=== PATIENT | male | born 1945 | race Two or more races ===

== ENCOUNTER 2017-01-04 11:06 | Inpatient (IN) | payer OTHER, MEDICAID ==
[2017-01-04] MEDS ORDERED: HYDROmorphONE/DILAUDID 1 MG/ML SYR IVP ONE ×3 (11:37→17:06)
[2017-01-04] MEDS ORDERED: HYDROmorphONE/DILAUDID 1 MG/ML SYR ONE ×2 (11:38→17:05)
[2017-01-04 12:18] LABS: % IMMATURE GRANULYOCYTES 0.5 % (0.0-1.1); ABSOLUTE IMMATURE GRANULOCYTES 0.06 10^3/uL (0.00-0.10); ADD DIFF? NO; ADD MORPH? NO; ADD SCAN? NO; ATYPICAL LYMPHOCYTE FLAG 0 (0-99); FRAGMENT RBC FLAG 0 (0-99); HEMATOCRIT 29.9 % (40.0-51.0); LEFT SHIFT FLG 20 (0-99); LIPEMIA HEMOLYSIS FLAG 80 (0-99); MEAN CELL HEMOGLOBIN 32.3 pg (27.9-34.1); MEAN CELL HEMOGLOBIN CONCENTR. 33.4 g/dL (32.4-36.7); MEAN CELL VOLUME 96.5 fL (81.5-99.8); MEAN PLATELET VOLUME 9.8 fL (8.7-11.7); PLATELET CLUMPS FLAG 0 (0-99); PLATELET COUNT 192 10^3/uL (150-400); RED CELL DISTRIBUTION WIDTH 14.1 % (11.5-15.2)
[2017-01-04 12:27] LABS: ANION GAP 10 mEq/L (8-16); CALCIUM 8.9 mg/dL (8.5-10.4); CARBON DIOXIDE 25 mEq/l (22-31); CHLORIDE 95 mEq/L (97-110); GLOMERULAR FILTRATION RATE > 60; GLUCOSE 228 mg/dL (70-100); POTASSIUM 4.4 mEq/L (3.5-5.2); SODIUM 130 mEq/L (134-144)
[2017-01-04] MEDS ORDERED: NS 1,000 ML IV ONE ×2 (12:32→13:30)
[2017-01-04 12:43] LABS: C-REACTIVE PROTEIN 224.8 mg/L (<10.0)
[2017-01-04 12:44] LABS: INR 3.28 (0.83-1.16); PROTIME(PATIENT) 33.9 SEC (12.0-15.0)
[2017-01-04 12:46] LABS: APTT 64.9 SEC (23.0-38.0); SEDIMENTATION RATE 50 MM/HR (0-20)
[2017-01-04 12:59] LABS: BILIRUBIN,TOTAL 1.3 mg/dL (0.1-1.4)
--- NOTE | 2017-01-04 13:05 | DX ---
Left Elbow, Three Views History: Hand swelling x1 week, possible infection. Comparison: None Findings: I suspect there is an old healed fracture deformity of the radial head. There is soft tis crys calcification surrounding the radial head that may indicate primary chondrocalcinosis or small fr agments of calcified cartilage in the elbow joint. There is a large hypertrophic ridge involving the posterior distal humeral metaphysis. There is a small dorsal proximal ulnar spur. There is dense athe rosclerotic vascular calcification of the radial and ulnar arteries. There is no elbow joint effusion , bone lysis or sclerosis or periostitis to suggest active infection. Impression: Nothing acute identified. Please see above.
--- NOTE | 2017-01-04 13:13 | CPEKG ---
Heart Rate: 97 RR Interval: 619 P-R Interval: 212 QRSD Interval: 134 QT Interval: 368 QTC Interval: 468 P [place]: 77 QRS [place]: -44 T Wave [place]: 144 EKG Severity - ABNORMAL ECG - EKG Impression: SINUS RHYTHM EKG Impression: LEFT BUNDLE BRANCH BLOCK Electronically Signed By: Wild Holman 04-Jan-2017 14:01:56
[2017-01-04] MEDS ORDERED: PIPERACILLIN/TAZO 3.375 GM/DEX 50 ML IV ONE (13:34)
[2017-01-04] MEDS ORDERED: VANCOMYCIN HCL/NORMAL SALINE 250 ML IV ONE (13:34)
--- NOTE | 2017-01-04 13:37 | EDPHY ---
H & P <Wild Holman - Last Filed: 01/04/17 16:20> Stated Complaint: l shoulder pain since thrusday no injury; seen yesterday at [facility] Source: Patient, Family Exam Limitations: No limitations - Personal History Current Tetanus/Diphtheria Vaccine: Yes Current Tetanus Diphtheria and Acellular Pertussis (TDAP): Yes - Medical/Surgical History Hx Asthma: No Hx Chronic Respiratory Disease: No Hx Diabetes: Yes Hx Cardiac Disease: Yes Hx Renal Disease: No Hx Cirrhosis: No Hx Alcoholism: No Hx HIV/AIDS: No Hx Splenectomy or Spleen Trauma: No Other PMH: heart surgery 2003 ([facility] valve), DM - Social History Smoking Status: Never smoked <Santo Paulion - Last Filed: 01/04/17 16:48> <Alfa Villasenor - Last Filed: 01/04/17 16:57> HPI/ROS: CHIEF COMPLAINT: Left elbow shoulder pain HISTORY OF PRESENT ILLNESS: 3 days history of left shoulder and elbow pain, shoulder starting 1st. [id number] at 1st. Now it is severe. It is primarily in the left elbow at this time. Associated with swelling and inability to flex or extend the elbow. No trauma or injury. No lacerations, abrasions or contusions. There is swelling and pain distal to the elbow but no numbness or tingling. No cyanosis, pallor paresthesia. Was seen yesterday outside facility related x-ray, laboratory studies and ultrasound with no definitive diagnosis. The pain is significantly worsened since yesterday. No fevers or chills. Does have general malaise. No nausea or vomiting. No abdominal complaints. No rash. No other associated complaints or modifying factors REVIEW OF SYSTEMS: Ten systems reviewed and are negative unless otherwise noted in the HPI EXAMINATION General Appearance: Alert, no distress Head: normocephalic, atraumatic Eyes: Pupils equal and round, no conjunctival pallor or injection ENT, Mouth: Mucous membranes moist. Uvula midline. Neck: Normal inspection, supple, non-tender Respiratory: Lungs are clear to auscultation . No wheezing, rhonchi or crackles. Cardiovascular: Regular rate and rhythm . Harsh systolic murmur. Pulses are intact distally with symmetric radial pulses at 2+. Brisk cap refill in all 10 fingers. Gastrointestinal: Abdomen is soft and nontender . Ecchymosis at site of insulin injections. Neurological: A&O, nonfocal, Sensory symmetric in the upper extremities. Strength is 5/5 in both hands. Unable to test strength of the elbow due to pain in left side Skin: Warm and dry, no rash Extremities: significant edema and tenderness to palpation of the left elbow And forearm. Mild tenderness to palpation left shoulder. Range of motion the shoulder is intact. Unable to test range of motion about the left elbow secondary to pain and swelling. Mild erythema about the left arm.Neurovascular intact distal to the left elbow pain. there is no crepitus Or subcutaneous emphysema upon palpation of the left upper extremity at any site. Psychiatric: Mood and affect normal DIFFERENTIAL DIAGNOSES: Including but not limited to septic arthritis, osteomyelitis, fasciitis, cellulitis, abscess MDM: 1:43 p.m. significant pain, edema and decreased range of motion of the left elbow. There is minimal change about the left shoulder. Given the nature of his appearance, has diabetes and history, we did order multiple laboratory studies. We also have ordered MRI to further delineate the elbow or shoulder. He is resting comfortably at this time. Upon admission is vital signs were well within normal limits. He does not have a leukocytosis and a heart rate above 90, thus we did order lactic acid and blood cultures. These are pending at this time. We have also consulted General surgery for evaluation for possible fasciitis. He will be evaluated in the emergency department for this. additionally, we were notified that the patient began to complain of some chest pain, thus an EKG and troponin have been ordered as well. This was not present at time of admission. 4:40 p.m. patient's laboratory studies and vital signs pointing toward sepsis. At the time noted by Dr. Holman in his chart, we had already commenced IV antibiotics and IV fluid resuscitation. Lactic acid was elevated and we will repeat this soon. We also had MRI of the elbow and shoulder ordered. He tolerated the shoulder was unable to tolerate the left elbow MRI. General surgery was consulted for the possibility of fasciitis and he has evaluated the patient and feels that there is no evidence of this. Please see his note for further delineation of this. Dr. Holman has also consult Orthopedics, and they will evaluate the patient in the emergency department to assess for possibility of septic joint. In the interim, the patient did have a short bout of hypotension with a systolic pressure in the 80s. At that time he was given more IV fluids and pressors. Additionally central line has been placed. His pressure has normalized. During this he was awake, alert and mentating appropriately. He' ll be admitted to the ICU for further care. SUPERVISION: Patient was evaluated in conjunction with the supervising physician. Please see their note for details. (Santo Paulino) Constitutional: Initial Vital Signs Temperature (C) 37.5 C 01/04/17 11:18 Heart Rate 92 01/04/17 11:18 Respiratory Rate 18 01/04/17 11:18 Blood Pressure 150/52 H 01/04/17 11:18 O2 Sat (%) 92 01/04/17 11:18 O2 Delivery Mode Nasal Cannula O2 (L/minute) 5 Allergies/Adverse Reactions: No Known Allergies Allergy (Verified 07/13/12 10:09) Home Medications: Medication Instructions Recorded Amoxicillin 08/03/10 Aspirin 81mg 08/03/10 COUMADIN 08/03/10 METFORMIN HCL 08/03/10 METOPROLOL TARTRATE 08/03/10 Nitroglycerin 08/03/10 Provastatin 08/03/10 Zantac 08/03/10 Amoxicillin/Clavulanate Pot 875 mg PO BID #14 tab 09/10/14 [Augmentin 875 MG TAB (RX)] Hydrocodone/Acetaminophen [Vicodin 09/10/14 5-300 mg Tablet] Medical Decision Making Consult/Admit Bed Type: [place] [address], [place] [address], [facility] 1601 <Wild Holman - Last Filed: 01/04/17 16:20> <Santo Paulino - Last Filed: 01/04/17 16:48> <Alfa Villasenor - Last Filed: 01/04/17 16:57> - Diagnostics EKG Interpretation: 12-lead EKG interpreted by me; official reading is in trace master. My interpretation is 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 with left bundle branch block. (Wild Holman) Procedures: Procedure: Central line placement. Indication: Sepsis. Verbal informed consent was obtained, with the risks explained to include but not be limited to bleeding, infection, and collapsed lung. A timeout was observed and patients identity and correct procedure location confirmed. Full maximal sterile barrier technique was uses including cap, gown, sterile gloves, large sheet, hand washing and chlorhexidine prep. The area anesthetized with 1 % lidocaine. The [ ] was punctured with a 19 gauge finder needle, then a 7.5 fr tripple lumen catheter was placed using standard Seldinger technique. There were no complications. Blood return low pressure, dark blood. Patient tolerated procedure well. CXR results: catheter tip not in correct position, crossed into L subclavian. X-ray was interpreted by myself. The procedure was performed by myself. Catyheter tip in L subclavian. Discussed with Dr. Arita. Will leave in place for now as patient's blood pressure has normalized. (Alfa Villasenor) ED Course/Re-evaluation: PHYSICIAN DOCUMENTATION: The patient was evaluated and managed by the Physician Hand Iii Cutter and myself. I have reviewed the chart and agree with the findings and plan of care as documented. In addition, I examined the patient myself at 1225. History confirmed as left arm pain for 3 days, worse with movement or palpation. Physical findings as follows: Patient has a good left radial pulse. He does not have skin changes in the left arm. He has some swelling on the distal biceps area but has a lot of pain with passive range of motion of his shoulder and his elbow. I do not appreciate any joint effusion. Compartments are soft. Concern for deep space infection such as fasciitis given elevated CRP white blood cell count and sedimentation rate. Patient started on sepsis protocol with broad-spectrum antibiotics to include Zosyn and vancomycin. MRI ordered. sharepoint consultant Dr. Arita here at 1: 55 p.m. in the emergency department to personally seen evaluate the patient. Concern for deep space infection given elevated white blood cell count, sedimentation rate, CRP and pain out of proportion to external physical examination. He has a good radial pulse and I think arterial occlusion is unlikely. He is anticoagulated with a therapeutic and INR and I believe DVT is unlikely especially with a negative ultrasound yesterday at [facility]. Discussed with orthopedic VILMA Obrien for Dr. Erwin at 1600 and he will see the patient this afternoon. At this time the patient is coughing and has increased oxygen requirement. Chest x-ray shows bilateral interstitial edema. Signed out to [place] at 1615; blood pressure 82 systolic, additional oxygen, ICU admission, plan for ED central access and pressors followed by CT left upper extremity as patient coughing and had too much pain to tolerate complete MRI. Lyla in ED and aware. I am the secondary supervising physician. (Wild Holman) - Data Points Laboratory Results: Laboratory Results 01/04/17 11:40 01/04/17 11:40 01/04/17 01/04/17 01/04/17 14:00 13:32 11:40 WBC 13.14 H 10^3/uL (3.80-9.50) RBC 3.10 L 10^6/uL (4.40-6.38) Hgb 10.0 L g/dL (13.7-17.5) Hct 29.9 L % (40.0-51.0) MCV 96.5 fL (81.5-99.8) MCH 32.3 pg (27.9-34.1) MCHC 33.4 g/dL (32.4-36.7) RDW 14.1 % (11.5-15.2) Plt Count 192 10^3/uL (150-400) MPV 9.8 fL (8.7-11.7) Neut % (Auto) 83.0 H % (39.3-74.2) Lymph % (Auto) 5.5 L % (15.0-45.0) [place] % (Auto) 10.7 % (4.5-13.0) Eos % (Auto) 0.1 L % (0.6-7.6) Baso % (Auto) 0.2 L % (0.3-1.7) Nucleat RBC Rel Count 0.0 % (0.0-0.2) Absolute Neuts (auto) 10.92 H 10^3/uL (1.70-6.50) Absolute Lymphs (auto) 0.72 L 10^3/uL (1.00-3.00) Absolute Monos (auto) 1.41 H 10^3/uL (0.30-0.80) Absolute Eos (auto) 0.01 L 10^3/uL (0.03-0.40) Absolute Basos (auto) 0.02 10^3/uL (0.02-0.10) Absolute Nucleated RBC 0.00 10^3/uL (0-0.01) Immature Gran % 0.5 % (0.0-1.1) Immature Gran # 0.06 10^3/uL (0.00-0.10) ESR 50 H MM/HR (0-20) PT 33.9 H SEC (12.0-15.0) INR 3.28 H (0.83-1.16) APTT 64.9 H SEC (23.0-38.0) VBG Lactic Acid 2.3 H mmol/L (0.7-2.1) Sodium 130 L mEq/L (134-144) Potassium 4.4 mEq/L (3.5-5.2) Chloride 95 L mEq/L (97-110) Carbon Dioxide 25 mEq/l (22-31) Anion Gap 10 mEq/L (8-16) BUN 20 mg/dL (7-23) Creatinine 1.0 mg/dL (0.7-1.3) Estimated GFR > 60 Glucose 228 H mg/dL (70-100) Calcium 8.9 mg/dL (8.5-10.4) Total Bilirubin 1.3 mg/dL (0.1-1.4) Creatine Kinase 208 IU/L (0-224) Troponin I 0.022 ng/mL (0-0.034) C-Reactive Protein 224.8 H mg/L (<10.0) Patient ABO/Rh O POSITIVE Antibody Screen NEGATIVE Medications Given: Discontinued Medications Hydromorphone HCl (Dilaudid) 0.5 mg IVP EDNOW ONE Stop: 01/04/17 11:38 Last Admin: 01/04/17 11:45 Dose: 0.5 mg Hydromorphone HCl (Dilaudid) 1 mg IVP EDNOW ONE Stop: 01/04/17 12:33 Last Admin: 01/04/17 12:35 Dose: 1 mg Hydromorphone HCl (Dilaudid) 1 mg IVP EDNOW ONE Stop: 01/04/17 15:24 Last Admin: 01/04/17 16:36 Dose: Not Given Sodium Chloride (Ns) 1,000 mls @ 0 mls/hr IV EDNOW ONE PRN Reason: Wide Open Stop: 01/04/17 12:33 Last Admin: 01/04/17 12:35 Dose: 1,000 mls Vancomycin/Sodium Chloride (Vancomycin 1 Gm (Premix)) 250 mls @ 250 mls/hr IV EDNOW ONE PRN Reason: Protocol Stop: 01/04/17 14:33 Last Admin: 01/04/17 14:10 Dose: 250 mls Piperacillin/Tazobactam/Dextrose (Zosyn 3.375 Gm (Premix)) 50 mls @ 100 mls/hr IV EDNOW ONE PRN Reason: Protocol Stop: 01/04/17 14:03 Last Admin: 01/04/17 14:19 Dose: 50 mls Sodium Chloride (Ns) 1,000 mls @ 0 mls/hr IV EDNOW ONE PRN Reason: Wide Open Stop: 01/04/17 13:31 Last Admin: 01/04/17 13:30 Dose: 1,000 mls Nitroglycerin (Nitrostat) 0.4 mg SL EDNOW ONE Stop: 01/04/17 14:25 Last Admin: 01/04/17 14:24 Dose: 0.4 mg Sodium Chloride (Ns *For Sepsis Order Set Only*) 2,381 ml IV EDNOW ONE Stop: 01/04/17 13:56 Last Admin: 01/04/17 14:20 Dose: 381 ml Departure <Wild Holman - Last Filed: 01/04/17 16:20> <Santo Paulino - Last Filed: 01/04/17 16:48> <Alfa Villasenor - Last Filed: 01/04/17 16:57> - Departure Disposition: [facility] Inpatient Acute Clinical Impression: Left arm pain, Sepsis affecting skin, Hypotension Condition: Serious
[2017-01-04] MEDS ORDERED: NS 1,000 ML BAG *FOR SEPSIS ORDER SET ONLY IV ONE (13:55)
[2017-01-04] MEDS ORDERED: NITROGLYCERIN 0.4 MG BTL SL ONE ×2 (14:23→14:24)
[2017-01-04 14:42] LABS: LACGHOST ORDER
[2017-01-04] MEDS: HYDROmorphONE/DILAUDID 1 MG/ML SYR IVP ONE ×2 (15:25→16:36)
[2017-01-04] MEDS ORDERED: NOREPINEPHRINE BITARTRATE 4 MG in NS 500 ML IV ONE (16:18)
--- NOTE | 2017-01-04 16:21 | DX ---
Portable AP chest. 01/04/2017 at 1603 History: cough, shortness of breath Comparison study: None available Findings: Diffuse lung disease is present bilaterally. Both interstitial disease and airspace consoli dation is present. Findings may be secondary to pulmonary edema or diffuse pneumonia. No pleural effu amando. Surgical features of median sternotomy, CABG, and prosthetic cardiac valve present. Impression: Diffuse bilateral lung disease, pulmonary edema versus diffuse pneumonia.
--- NOTE | 2017-01-04 16:23 | DX ---
Shoulder Minimum 2 Views CLNLRB L History: Possible left shoulder infection. Shoulder pain Comparison exam: None available. Findings: Moderate glenohumeral and acromioclavicular degenerative joint disease. No fracture or disl ocation. No subcutaneous emphysema. Diffuse bilateral lung disease is better documented on chest x-ray performed at the same time. Impression: Degenerative changes, left shoulder. Diffuse bilateral lung disease.
--- NOTE | 2017-01-04 16:30 | MR ---
MRI of the Left Shoulder History: Severe shoulder pain. Evaluate for infection. Technique: Axial proton density, oblique coronal and sagittal T1 and T2 sequences were acquired. Findings: There is a large left shoulder joint effusion. Full-thickness tear of both supraspinatus an d infraspinatus tendons identified, with retraction of both tendons to the shoulder joint level and a ssociated fatty atrophy of musculature, severe. There is a high-grade partial tear of distal subscapu yovany with only a few intact caudal fibers noted. Teres minor remains intact. Evaluation of the glenohumeral joint demonstrates diffuse chondral thinning throughout the glenoid ar ticular surface, moderate severity. There is a degenerative moderately displaced tear of the posterio r glenoid labrum diffusely. The anterior labrum is intact. Superior labrum is also torn and displaced . Long head biceps tendon is not visualized within the shoulder joint compatible with complete tear. Th e tendon appears to be retracted to the proximal humeral neck level. Impression: 1. Large left shoulder joint effusion. 2. Massive rotator cuff tendon tear with full-thickness tears of supraspinatus and infraspinatus tend ons with retraction and muscular atrophy. High-grade partial tear distal subscapularis. 3. Complete tear of the long head biceps tendon with retraction. 4. Degenerative tear of the superior and posterior glenoid labrum. Examination reviewed with Dr. Arita.
--- NOTE | 2017-01-04 17:10 | PDCONSULT ---
Exam Temp Pulse Resp BP Pulse Ox 36.7 C 112 H 26 H 97/51 L 89 L 01/04/17 15:38 01/04/17 16:39 01/04/17 16:39 01/04/17 16:39 01/04/17 16:39 O2 (L/minute) 5 Constitutional: uncomfortable Eyes: PERRL, EOMI Ears, Nose, Mouth, Throat: moist mucous membranes, hearing normal, no oral mucosal ulcers Cardiovascular: regular rate and rhythym, systolic murmur Peripheral Pulses: 2+: dorsalis-pedis (R), dorsalis-pedis (L) Respiratory: no respiratory distress, no rales or rhonchi, reduced air movement Skin: warm, normal color, no rashes or abrasions, no induration, abrasion, induration, rash, other (Petechiae BLEs), No erythema, No fluctuance Musculoskeletal: joint effusion (left shoulder), joint tenderness, pain with ROM (limiting ROM 2/2 severe pain with minor IR/ER/FE L shoulder and P/S/F/E L elbow.), muscular tenderness, other (Diffuse severe tenderness of the LUE from the shoulder to the wrist; limited ROM of the shoulder and elbow due to pain; quantitative consultant strength intact, unable to assess strength fully secondary to pain. Compartments soft, no subQ crepitation throughout LUE.) Neurologic: AAOx3, sensation intact bilaterally, other (C5-T1 and L2-S1 intact. DTRs at least 1+ BUE's with diff exam 2/2 pain, 2+ BLEs. No clonus BLE's.) Psychiatric: interacting appropriately History of Present Illness - General Stated Complaint: l shoulder pain since thrusday no injury; seen yesterday at [facility] Source: Patient, Family HPI: 71y/o M presents to the ED c/o left shoulder and elbow pain x 2 days. Pt states he developed left shoulder pain 2 days ago while sleeping. The pain continued to keep him up that night. Pain started in the left shoulder and now includes his left elbow and forearm. Pt states pain is a 9/10 and sharp. Pain increases with any type of movement, and he has to hold his left arm with his right for additional support. Pt has tried Vicodin and Percocet with no relief. Pt was seen by his PCP yesterday and sent for an ultrasound of his LUE at [facility] with negative results. Pt denies any type of injury to the left arm. Pt states he developed a dry cough today, but otherwise denies any fever, chills, calf pain, erythema, calor, weakness, numbness, and tingling. REVIEW OF SYSTEMS: dry cough started today; otherwise, no other complaints after a 10-pt review. Timing/Duration: Days (2) Quality: severe, sharpness Activities at Onset: sleep Modifying Factors: improves with: analgesics, rest Associated Symptoms: other (non-productive cough). No: chest pain, fever/chills , fatigue Initial Vital Signs: Initial Vital Signs Temperature (C) 37.5 C 01/04/17 11:18 Heart Rate 92 01/04/17 11:18 Respiratory Rate 18 01/04/17 11:18 Blood Pressure 150/52 H 01/04/17 11:18 O2 Sat (%) 92 01/04/17 11:18 O2 Delivery Mode Nasal Cannula O2 (L/minute) 5 Allergies/Adverse Reactions: No Known Allergies Allergy (Verified 07/13/12 10:09) Home Medications: Medication Instructions Recorded Amoxicillin 08/03/10 Aspirin 81mg 08/03/10 COUMADIN 08/03/10 METFORMIN HCL 08/03/10 METOPROLOL TARTRATE 08/03/10 Nitroglycerin 08/03/10 Provastatin 08/03/10 Zantac 08/03/10 Amoxicillin/Clavulanate Pot 875 mg PO BID #14 tab 09/10/14 [Augmentin 875 MG TAB (RX)] Hydrocodone/Acetaminophen [Vicodin 09/10/14 5-300 mg Tablet] Past Medical History - Medical/Surgical History Hx Asthma: No Hx Chronic Respiratory Disease: No Hx Cardiac Disease: Yes Hx Diabetes: Yes Hx Renal Disease: No Hx Alcoholism: No Hx Cirrhosis: No Hx HIV/AIDS: No Hx Splenectomy or Spleen Trauma: No Other PMH: heart surgery 2003 ([facility] valve), DM, stent placed 2014 - Family History Significant Family History: Cancer (Lung in Father.) - Social History Smoking Status: Never smoked Alcohol Use: None Drug Use: None Assessment & Plan Assessment: Hypotension (Acute) Left arm pain (Acute) Sepsis affecting skin (Acute) LUE exam is concerning for a septic shoulder and elbow. MRI results: left shoulder effusion, complete tear of the supraspinatus, infraspinatus and partial tear of the subscapularis; complete tear of the bicep tendon. WBC elevated to 13.14 and CRP 224.8. Plan: Continue pain management and keep pt NPO. Sling LUE, limit motion 2/2 pain. Procedure: After verbal informed consent, with Dr Erwin explaining the R/B/ A to L shoulder and elbow aspiration, L elbow and shoulder were prepped with Chlorhexidine solution and alcohol swab. Sterile technique used for both aspirations. 1% xylocaine with epi used for anesthsia of skin/injection tracts. L shoulder entered thru anterior approach and rotator interval. L elbow entered thru lateral soft spot. In both cases abundant purulent appearing fluid (L shoulder ~30cc, L elbow ~20cc) was obtained and sent for STAT cell count, crystals, SGS and cx/sens. Direct pressure applied and bandaids applied with appropriate hemostasis. Procedure uncomplicated and well- tolerated. General discomfort and pain improved after aspirations at both joints. We have notified the OR and will proceed with urgent L elbow and shoulder I&Ds. Patient and family consented for procedure including R/B/A, by Dr Erwin with a written and informed consent obtained and placed in chart.
--- NOTE | 2017-01-04 17:25 | DX ---
Portable AP chest. 01/04/2017 at 1650 History: POST CENTRAL LINE PLACEMENT Comparison study: 47 minutes earlier Findings: In the interval, there has been placement of a right jugular central catheter, terminating in the mid SVC, without pneumothorax. Diffuse bilateral lung disease is unchanged. Heart size is stable. Impression: Right-sided jugular central venous catheter without complication.
[2017-01-04] MEDS ORDERED: IOPAMIDOL (ISOVUE-300) 100 ML BTL IV ONE (17:29)
[2017-01-04] MEDS ORDERED: LIDO/EPI 1% **for epidural** 30 ML SDV ONE (17:31)
--- NOTE | 2017-01-04 17:49 | GCON ---
[f rep st] CONSULTATION REFERRING PHYSICIAN: Wild Holman MD DIAGNOSIS: Sepsis, rule out necrotizing fasciitis. HISTORY: The patient is a 71-year-old male who speaks Khmer well. On morning, he had slowly increasing left upper extremity pain. His family doctor at the [facility] gave him Vicodin. It did not appear to help. The pain was more severe that night, and his glucoses were in the 300s that morning and 278 that evening, much higher than his usual readings. On Friday, he went to [facility] at 9:30 AM. An ultrasound (?) was performed , which was negative. He was given a sling and Percocet. His glucose that morning was 200, and that evening was 327. He slept poorly that night, complaining of more and more pain in his elbow. He had a fever this morning to 100. He was treated with Tylenol. His glucose this morning was 200. He is now afebrile. He is seen in ER bed 25 complaining of severe shoulder, elbow and arm pain. Additional contributing information is that he is: 1. A Diabetic. 2. He has a mechanical heart valve, and is chronically on Coumadin. His current INR is 3.28. PHYSICAL EXAMINATION: Lungs: Clear to auscultation. CARDIAC: Exam is notable for the mechanical heart valves click. ABDOMEN: Distended, but soft. LOWER EXTREMITIES: Unremarkable. His left upper extremity is tender at the shoulder. He is also tender at the distal humerus on the anterior aspect. There is of a lump, which is beginning to turn black and blue. He is also tender about the elbow. The pain resolves just below the elbow. It is quite tender for him to flex his arm at the elbow or to move his shoulder. LABORATORY DATA: His white blood cell count is 13,000. His sedimentation rate is 50. His CRP is 224. His lactate is 2.3. His EKG shows left bundle branch block. He has been given vancomycin and Zosyn after blood cultures have been drawn. He does not have any axillary lymphadenopathy. He is taken to the MRI where he is seen to have a rotator cuff disruption, and a large effusion around his humerus. Note is made that he does not recall any trauma. The MRI of the arm and elbow could not be performed because he started having a coughing episode. He is returned to the ER where his pressure is down. He is going to get a central line and IV antibiotics prior to returning to X-Ray for a CT as he probably will not tolerate a completion of his MRI. IMPRESSION: We cannot yet exclude necrotizing fasciitis, but given the time course and the lack of lymphadenopathy, I think that it is less likely. Certainly, he has what appears to be an ongoing infection. The CAT scan will be performed as soon as we can stabilize him further, and decisions will be made as to our next steps. /[id number]/MODL MTDD
--- NOTE | 2017-01-04 17:55 | CT ---
CT of the Left Upper Extremity With Contrast History: Evaluate for necrotizing fasciitis. Arm pain and infection. Technique: Volumetric axial CT images of the left upper extremity are obtained after intravenous admi nistration of 90 mL Isovue-300. Images include the chest. Reformatted images in the sagittal and isaac nal planes are also obtained. Dose reduction techniques are utilized. Findings: There is a large left shoulder joint effusion, as documented on previous MRI. Also, feature s of osteoarthritis are present in the glenohumeral joint. No evidence of discrete fluid collection o r inflammatory changes along the left upper extremity from the shoulder through the elbow. The proxim al forearm also appears normal, although only partially visualized. Within the chest, extensive bilateral pulmonary consolidation is present with small bilateral pleural effusions, pneumonia versus edema. Prior median sternotomy and CABG. Impression: 1. Large left shoulder joint effusion and left shoulder osteoarthritis. 2. No evidence of focal fluid collection, inflammatory changes, or subcutaneous air from the left kenneth ulder through the left elbow. 3. Extensive bilateral pulmonary consolidation throughout both lungs suggestive of pneumonia or edema . Examination reviewed with Dr. Arita.
[2017-01-04] MEDS ORDERED: ACETAMINOPHEN 160 MG/5 ML UDCUP PO ONE (17:58)
[2017-01-04] MEDS ORDERED: ALBUTEROL 3 ML DEYVIAL IH PRN (18:00)
[2017-01-04] MEDS ORDERED: ONDANSETRON DISINTEGRATING 4 MG TAB PO PRN (18:00)
[2017-01-04] MEDS ORDERED: ONDANSETRON 4 MG/2 ML VIAL IVP PRN (18:00)
[2017-01-04] MEDS ORDERED: ACETAMINOPHEN 325 MG TAB ONE (18:01)
[2017-01-04] MEDS ORDERED: ACETAMINOPHEN 325 MG TAB PO ONE (18:07)
--- NOTE | 2017-01-04 18:15 | PDGENHP ---
History and Physical History and Physical: HISTORY AND PHYSICAL ADMISSION NOTE CC:Left-sided shoulder and elbow pain HISTORY: Patient presents with 1 week of progressive pain in his left open shoulder without injury, fever, or other precipitating event. He has never had episode like this before. At this point the pain is so severe he cannot move these joints at all and they are swollen. Notably in addition to the above at 1 point while being evaluated in the ER the patient suddenly had shortness of breath, tachypnea, hypoxemia, and hypotension. Was being transitioned from his initial ER room to 1 of the critical care ER room's and by the time he was moved to the critical care ER room all of his vital signs resolved back to normal, his oxygenation was good and he was no longer short of breath. During this he had no chest pain or no cough, but he does admit to having had some cough at home recently. He is a former smoker but has been not been diagnosed with lung disease or heart disease. ROS: No other particular symptoms at this time PAST MEDICAL HISTORY: heart disease with bypass surgery and aortic valve replacement, on chronic Coumadin Diabetes mellitus type 2 Atrial fibrillation Hypertension FAMILY MEDICAL HISTORY: no concerning contributory family medical issues SOCIAL HISTORY: former smoker, no alcohol use, lives with his who is here at the bedside with him MEDICATIONS: these are reconciled by our pharmacist and I have reviewed the list in the electronic record and ordered appropriate medicines PHYSICAL EXAMINATION: Vital Signs: initially stable without fever, subsequently he did have 1 episode of pulse 112 systolic 90s tachypnea and temperature 37.5degrees but his vitals are spontaneously back to normal 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: 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 Examination: General: alert, oriented, good mentation, looks quite uncomfortable and is holding his left arm still with his right hand due to severe pain with any movement of the left Skin: warm, dry, good color, no rash HEENT: normal Neck: no mass or jvd Resps: relaxed Lungs: very diminished but clear breath sounds Heart: regular, no murmur Abdomen: soft, nondistended, nontender, +BS, no mass Upper Extremities: there is marked swelling and tenderness at the left shoulder and elbow, both the fusion, neither with any erythema or warmth, both with severe pain with any minimal movement Lower Extremities: no edema, warm No Bleeding or bruising Neurologic: normal speech/language, normal sales and 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 president, no focal weakness IV site: a right internal jugular catheter is in good position and secured well RADIOLOGY STUDIES: I reviewed his MRI images of his left shoulder which shows a large effusion but no fracture I have reviewed his chest x-rays which show remarkable alveolar process most likely pneumonia but could not rule out pulmonary edema ; his internal jugular venous line looks in good position ASSESSMENT: # suspect septic left shoulder and elbow, need to rule out hemorrhagic collections in this anticoagulated man # acute sepsis # Acute respiratory failure # Probable community-acquired pneumonia, at the moment heart to rule out pulmonary edema ; central venous pressure will be helpful # Repeat episode of hypotension with tachypnea and shortness of breath in the ER which resolved very quickly and spontaneously, uncertain cause of this ; he could have had potentially some mucus plugging or other mechanism # history of aortic valve replacement and bypass surgery, on chronic Coumadin PLANS: -Blood cultures were obtained in the ER and he was given Zosyn and vancomycin -Fluid resuscitation has been started but I want to check a central venous pressure before we proceed very far with that; Close monitoring of vital signs -Continue his Zosyn and vancomycin for now -He is going to the OR tonight for washout of his shoulder and elbow I have reviewed the patient's case in detail with Dr. Bonilla and Dr. Wild Holman I have reviewed the patient's past medical records as part of this assessment, including previous hospital admission with physicians notes, EKG, chest x-ray
[2017-01-04] MEDS ORDERED: fentaNYL 100 MCG/2 ML INJ ONE ×2 (18:35→20:53)
[2017-01-04] MEDS ORDERED: PROPOFOL 200 MG/20 ML VIAL ONE ×2 (18:35)
[2017-01-04] MEDS ORDERED: ROCURONIUM 50 MG/5 ML VIAL ONE (18:38)
[2017-01-04] MEDS ORDERED: LIDOCAINE 2% 100 MG/5 ML SYR IVP ONE (18:38)
[2017-01-04] MEDS ORDERED: KETAMINE 100 MG/10 ML SYR IVP ONE (18:52)
[2017-01-04 18:57] LABS: WBC, SYNOVIAL FLUID 60652 /mm3 (0-150)
[2017-01-04 18:58] LABS: WBC, SYNOVIAL FLUID 174082 /mm3 (0-150)
[2017-01-04] MEDS ORDERED: BUPIVACAINE/EPI 0.25% 30 ML SDV ONE (20:02)
--- NOTE | 2017-01-04 21:09 | POSTOPPROG ---
Post Op Note Date of Operation: 01/04/17 Surgeon: Adam Erwin Coil Spring Assembler: Camille Husain Anesthesiologist: Dr. Blair Anesthesia: GET(General Endotracheal) Pre-op Diagnosis: Left shoulder and left elbow septic arthritis Post-op Diagnosis: Left shoulder and left elbow septic arthritis Indication: Infection Procedure: I&D with washout of the L shoulder and L elbow, with LBR in the L elbow Findings: See full dictation Inf/Abcess present in the surg proc area at time of surgery?: Yes Depth: Deep Incisional (Fascial) EBL: Minimal Complications: None Drains: Nigel Mariscal (One in L shoulder and one in L elbow) Specimen(s): L shoulder: swab, fluid, and tissue samples for aerobic culture/gram stain, anaerobic culture/gram stain, AFB, and fungal culture L elbow: swab, fluid, and tissue samples for aerobic culture/gram stain, anaerobic culture/gram stain, AFB, and fungal culture
--- NOTE | 2017-01-04 21:59 | GOP ---
[f rep st] OPERATIVE REPORT DATE OF OPERATION: 01/04/2017 SURGEON: Adam Erwin MD FONDANT MACHINE OPERATOR: VILMA Angel. ANESTHESIA: General. ANESTHESIOLOGIST: Dr. Vaughn. PREOPERATIVE DIAGNOSIS: 1. Left shoulder septic arthritis. 2. Left elbow septic arthritis. POSTOPERATIVE DIAGNOSIS: 1. Left shoulder septic arthritis with severe and hypertrophic synovitis. 2. Left elbow septic arthritis with obstructive osteochondral loose body. PROCEDURE PERFORMED: 1. Left shoulder arthrotomy with irrigation, debridement, drainage and extensive synovectomy. 2. Left elbow arthrotomy with irrigation, drainage, debridement and osteochondral loose body removal. FINDINGS: The left elbow and left shoulder joints were consistent with overt septic arthritis of both joints, including synovitis and copius purulent fluid. Notable findings of the left shoulder were massive rotator cuff tear and severe hypertrophic synovitis. Chondral surfaces of the humeral head and glenoid were with general chondromalacia, but otherwise cartilage was intact and present, no LBs found. The left elbow was with a large lateral recess osteochondral loose body that, on approach, obstructed the ability to enter the joint via Manny approach. This loose body was removed. Otherwise, the patient had rather impressive left elbow arthritis with cartilage loss, joint space narrowing, and osteophytes. SPECIMENS: A series of three surgical cultures were taken for both the left elbow and left shoulder. In each case, there was a swab, soft tissue and/or bony tissue, as well as fluid, sent for culture and sensitivity. ESTIMATED BLOOD LOSS: 50 cc total for both shoulder and elbow surgeries. INDICATIONS: This is a 71-year-old male, who presented to the emergency department with approximately a one-week history of worsening left elbow and shoulder pain. At the time of my evaluation in the emergency department, his pain was so severe that he could not move his elbow or wrist whatsoever. Preoperative, evaluation including physical exam, history, laboratory values, were all consistent with septic arthritis. I performed an aspiration of the left elbow and left shoulder, under sterile technique in the emergency department, which was significant for obtaining clearly purulent fluid. Preoperative lab results were greater than 175,000 white blood cells in the left elbow and greater than 60,000 white blood cells in the left shoulder. As a result, the patient was rapidly readied for surgery. The anesthesia service evaluated the patient. Medicine team evaluated the patient. The patient was optimized for his procedure. He was then educated regarding the risks, benefits and alternatives to the surgery, and he provided a signed and witnessed informed consent, which was placed in the patient's chart. All of their questions were answered prior to surgery. DESCRIPTION OF PROCEDURE: Tom was identified in the preoperative holding area , and his left elbow and shoulder were signed and designated as the operative site. The patient was confirmed to be in bilateral lower extremity JAMIE hose and SCDs. He was treated with vancomycin 1 g and Zosyn 3.375 g preoperatively by the medical team, in the emergency department, due to his septic appearance on presentation. No further prophylactic antibiotics were provided. The patient was taken back to the operating room, placed supine on the OR table, and general anesthesia was obtained. A Decker was placed. Both lower extremities were placed on a well-padded OR table. The right upper extremity was placed in a well-padded arm board. The left upper extremity was prepped and draped in the usual sterile manner. Initially, a sterile tourniquet was utilized, and inflated 250 mmHg in order to perform the left elbow surgery. A standard Manny approach was utilized. An approximately 4 cm incision was placed directly over the interval between the anconeus and the ECU muscle bellies. Full-thickness dermal incision was made with a #10 blade, and then careful dissection was taken down through the subcutaneous fat. Retractors were placed. The interval between anconeus and ECU was identified by alteration in the overall orientation of the muscle fibers. This was opened, and then the capsule was identified. The wrist and elbow were kept in maximum pronation for the approach and surgery. There was a small subcutaneous nerve that was retracted posteriorly and protected during the surgery. The capsule was then opened, and arthrotomy was performed. Copious purulence was encountered. There was a large osteochondral loose body, measuring approximately 10 mm in its maximum dimension, directly deep to my arthrotomy, and, therefore, this was carefully dissected free of capsular adhesions, and this loose body was removed. It was a very poor quality bone, and it morselized easily. This was all sent for culture, as part of his culture subset. Additionally, synovial samples and fluid were sent for culture as well as a swab. The elbow was then irrigated with approximately 2 L of sterile saline. Sequentially, the irrigation was discontinued, and the elbow was evaluated to assure that there was removal of all purulence. I used my finger in order to enter the joint and debride any adhesions. In addition, a [place] was utilized in order to sweep around through the radial capitellar and ulnohumeral joints, as well as posteriorly through the ulnar humeral articulation in order to divide any adhesions. After a total of approximately 2 or 2-1/2 L of sterile saline irrigated through the joint, a drain was placed within the joint through a separate stab incision just posterior within the soft spot of the elbow. The drain was then sutured in place. The wound was closed in layers with 2-0 PDS, 3 -0 Monocryl and 3-0 nylon. The tourniquet was dropped, and attention was then focused on the shoulder. A mini deltopectoral approach was utilized for the shoulder arthrotomy. An incision, measuring approximately 6 cm, was placed directly over the deltopectoral interval. A full-thickness dermal incision was made after anesthesia with 0.5% Marcaine with epinephrine. A full-thickness dermal incision was made, and carefully dissection was taken down through the subcutaneous fat. Small crossing vessels were coagulated. The deltopectoral interval was identified and then bluntly and carefully opened. Small crossing vessels were coagulated with Bovie cautery. A branch of the anterior humeral circumflex vessels were suture ligated and divided. The interval inferior to the deltoid was then opened with blunt dissection and a retractor was placed. All dissection was kept just lateral to the coracoid and anterior strap muscles. The bicipital groove was palpated and the rotator interval identified. With gentle spreading, the capsule was identified at the level of the rotator interval. This began bulging out impressively, and a small arthrotomy was made approximately 2 cm in length extending from the superior aspect of the subscapularis superomedially toward the base of the coracoid. Abundant purulence was identified and suctioned for fluid culture. Additionally , there was copious synovitis and debris within the shoulder that was removed with a rongeur and Bovie cautery. This was also sent for tissue culture. Finally, a swab was utilized in order to swab the shoulder. The intra- articular space of the glenohumeral joint was then irrigated with 3 to 3-1/2 L of sterile saline. The shoulder was taken through range of motion during the irrigation, in order to assure flushing of the fluid throughout the entire glenohumeral joint. There was a massive rotator cuff tear superiorly that was continuous with the subacromial space, and the undersurface of the acromion was easily palpable. The subscapularis was palpable and found to be intact. Supra and infraspinatus appeared to be deficient. The articular cartilage overall was intact. No obvious significant loose bodies. Again, irrigation was ceased 2 or 3 times, during the irrigation process, in order to confirm there was no further purulence at the end of the irrigation process. Once this was completed , a drain was placed within the intra-articular space and then exited out through the rotator interval with two stitches placed round it to close the rotator interval. The drain was then tunneled deep to the deltoid and kept within about 2 cm of the acromion and advanced out through a lateral separate stab incision. The deltopectoral interval was then closed with interrupted 0 PDS sutures. The deep fat space was reapproximated with 2-0 PDS, 2-0 Monocryl was used to reapproximate the deep dermal layer. [place] were used to close the skin. Both drains were sutured in place. Sterile postoperative surgical dressings were applied. The left upper extremity was placed in a shoulder immobilizer. The anesthesia service then took over to wake the patient up. SURGEON: Adam Erwin MD TOURNIQUET TIME: None. DRAINS: Left elbow and left shoulder suction drains were placed. IMPLANTS: None. COMPLICATIONS: None. DISPOSITION: The patient was extubated and transferred to the PACU in stable condition. /[id number]/MODL MTDD
[2017-01-04] MEDS ORDERED: NS 1,000 ML IV SCH (22:45)
[2017-01-04] MEDS: guaiFENesin 200 MG/10 ML UDCUP PO PRN (23:47)
[2017-01-04] MEDS: HYDROmorphONE/DILAUDID 1 MG/ML SYR IVP PRN (23:48)
[2017-01-04] MEDS: PIPERACILLIN/TAZO 3.375 GM/DEX 50 ML IV SCH (23:54)
[2017-01-05] MEDS: HYDROmorphONE/DILAUDID 1 MG/ML SYR IVP PRN ×3 (05:13→17:45)
[2017-01-05 05:51] LABS: % IMMATURE GRANULYOCYTES 0.5 % (0.0-1.1); ABSOLUTE IMMATURE GRANULOCYTES 0.06 10^3/uL (0.00-0.10); ADD DIFF? NO; ADD MORPH? NO; ADD SCAN? NO; ATYPICAL LYMPHOCYTE FLAG 0 (0-99); FRAGMENT RBC FLAG 0 (0-99); HEMATOCRIT 28.8 % (40.0-51.0); HEMOGLOBIN 9.4 g/dL (13.7-17.5); LEFT SHIFT FLG 40 (0-99); LIPEMIA HEMOLYSIS FLAG 80 (0-99); MEAN CELL HEMOGLOBIN 32.3 pg (27.9-34.1); MEAN CELL HEMOGLOBIN CONCENTR. 32.6 g/dL (32.4-36.7); MEAN PLATELET VOLUME 9.7 fL (8.7-11.7); PLATELET CLUMPS FLAG 0 (0-99); PLATELET COUNT 173 10^3/uL (150-400); RED BLOOD CELL COUNT 2.91 10^6/uL (4.40-6.38); RED CELL DISTRIBUTION WIDTH 14.2 % (11.5-15.2)
[2017-01-05] MEDS: PIPERACILLIN/TAZO 3.375 GM/DEX 50 ML IV SCH ×4 (05:56→23:23)
[2017-01-05 06:42] LABS: ALANINE AMINOTRANSFERASE 43 IU/L (21-72); ALBUMIN 2.9 g/dL (3.5-5.0); ALKALINE PHOSPHATASE 101 IU/L (38-126); ANION GAP 9 mEq/L (8-16); ASPARTATE AMINOTRANSFERASE 96 IU/L (17-59); BILIRUBIN,TOTAL 0.8 mg/dL (0.1-1.4); CALCIUM 7.9 mg/dL (8.5-10.4); CARBON DIOXIDE 22 mEq/l (22-31); CHLORIDE 105 mEq/L (97-110); CREATININE 0.9 mg/dL (0.7-1.3); GLOMERULAR FILTRATION RATE > 60; GLUCOSE 290 mg/dL (70-100); POTASSIUM 4.7 mEq/L (3.5-5.2); SODIUM 136 mEq/L (134-144); TOTAL PROTEIN 5.8 g/dL (6.3-8.2)
[2017-01-05] MEDS ORDERED: D50W 25 GM/50 ML SYR IVP PRN (07:19)
[2017-01-05] MEDS ORDERED: ASPIRIN 325 MG TAB PO ONE (07:22)
--- NOTE | 2017-01-05 07:43 | HOSPPROG ---
Hospitalist Progress Note Assessment/Plan: EVENT Note On review of patient's AM labs this morning, troponin was noted to be elevated to 16 (from 0.022 on admission). I then evaluated the patient, he reported only L shoulder pain, denied any chest pain, diaphoresis, nausea or shortness of breath. On exam, BP 114/88, HR 92, O2 sat 96% on 4L NC Gen: NAD CV: RRR, systolic murmur Resp: faint rhonchi present diffusely Abd: soft, nontender Ext: no edema, peripheral pulses 2+ Neuro: AO x 3, answering questions and following commands, no focal deficits Labs: Troponin 0.022 -> 16.3 AM CXR: diffuse bilateral patchy infiltrates, R worse than L EKG: pending A/P Patient is a 71/M with h/o CAD s/p CABG and AVR (2003), PCI in 2015, Afib on anticoagulation, HTN and DM2 who presented to the ED with sepsis due to multifocal pneumonia, septic arthritis of the L shoulder and possible ankle s/p L shoulder washout. Given h/o mechanical aortic valve and multiple areas of infection, endocarditis is a concern. This morning, patient also with elevated Troponin, consistent with NSTEMI, although patient largely asymptomatic. Stat EKG and TTE were ordered and cardiology was notified. Patient was given Aspirin 325 and made NPO. Will f/u pending studies and cardiology consult. Objective: Vital Signs Temp Pulse Resp BP Pulse Ox 37.4 C 90 19 114/88 H 93 01/04/17 21:30 01/05/17 06:00 01/05/17 06:00 01/05/17 06:00 01/05/17 06:00 Microbiology 01/04/17 17:52 Gram Stain - Final Elbow - Aspirate 01/04/17 17:45 Gram Stain - Final Shoulder - Aspirate Laboratory Results 01/05/17 05:41 01/05/17 05:41 01/04/17 01/05/17 01/06/17 05:59 05:59 05:59 Intake Total 2944 Output Total 1945 Balance 999 PT 33.9 SEC (12.0-15.0) H 01/04/17 11:40 INR 3.28 (0.83-1.16) H 01/04/17 11:40 ICD10 Worksheet Patient Problems: Problems Problem Status Diagnosed Hypotension Acute Left arm pain Acute Sepsis affecting skin Acute
--- NOTE | 2017-01-05 07:48 | CPEKG ---
Heart Rate: 87 RR Interval: 690 P-R Interval: 224 QRSD Interval: 130 QT Interval: 376 QTC Interval: 453 P [place]: 79 QRS [place]: -31 T Wave [place]: 147 EKG Severity - ABNORMAL ECG - EKG Impression: SINUS RHYTHM EKG Impression: FIRST DEGREE AV BLOCK EKG Impression: NONSPECIFIC INTRAVENTRICULAR CONDUCTION DELAY EKG Impression: ST DEPRESSION, CONSIDER ISCHEMIA, ANT-LAT LDS Electronically Signed By: Rodney Holguin 05-Jan-2017 10:37:49
[2017-01-05] MEDS: INSULIN LISPRO 100 UNIT/ML SC SCH ×2 (07:59→13:34)
--- NOTE | 2017-01-05 08:38 | DX ---
Portable AP chest. 01/05/2017 at 6:20 AM History: f/u pneumonia vs chf Comparison study: January 04, 2017 Findings: Diffuse airspace consolidation within the right lung has increased in severity from prior s tudy. In contrast, left lung consolidation appears slightly improved. This could represent progressiv e pneumonia or asymmetric pulmonary edema. Surgical features of CABG and aortic valve replacement present. Right-sided jugular central venous ca theter is stable. Impression: Increasing consolidation, right lung, with improving consolidation, left lung. Asymmetric pulmonary edema versus progressive pneumonia.
[2017-01-05] MEDS: guaiFENesin 200 MG/10 ML UDCUP PO PRN ×3 (09:39→17:45)
--- NOTE | 2017-01-05 10:25 | SOAPPROG ---
SOAP Progress Note Assessment/Plan: Assessment: POD 1 s/p L shoulder/elbow arthrotomies, I&D, drains placed with L elbow OC LBR and L shoulder synovx. Surgical findings c/w pyogenic septic arthritis. Improving with lower WBC count this AM. No other obvious deep MSK infections found this AM. Medical status guarded with elevated TpI and significant PMHx. Plan: L shoulder and elbow NWB, immobilization at all times while drains are intra-articular, hand/wrist ROM OK. Drains will remain in place until output 10cc or less x24H. Vanco was not continued after ED dose, I have added it to zosyn now, pharm to dose. ID consult ordered. Warfarin transition to hep gtt under way per med team, no other VTE chemoproph needed; SCDs/TEDs BLEs. Float B heels given pt c/o and risk for decub ulcer development. Cardiology/med mngmt of TpI increase, w/u underway. Will follow closely with you. Please call with any ?s or concerns. 01/05/17 10:25 Subjective: Pain improved o/n after L elbow and shoulder washouts/drainage/LBR/synovx... Concern for NSTEMI this AM, undergoing w/u now. Denies any N/T in LUE, no other complaints of painful joints or areas concerning for infection, but does have minor B heel pain. Objective: Vital Signs Temp Pulse Resp BP Pulse Ox 36.8 C 91 21 H 114/88 H 94 01/05/17 07:41 01/05/17 07:41 01/05/17 07:41 01/05/17 07:41 01/05/17 07:41 Microbiology 01/04/17 17:52 Gram Stain - Final Elbow - Aspirate 01/04/17 17:45 Gram Stain - Final Shoulder - Aspirate Laboratory Results 01/05/17 05:41 01/05/17 05:41 01/04/17 01/05/17 01/06/17 05:59 05:59 05:59 Intake Total 2944 Output Total 1945 Balance 999 PT 33.9 SEC (12.0-15.0) H 01/04/17 11:40 INR 3.28 (0.83-1.16) H 01/04/17 11:40 L shoulder/elbow dsgs c/d/i, drains in place. Comp's soft w/o any crep. ROM deferred with drains intra-articular. DNVI BUEs with sym. B heels w/o any ulcers, but minor TTP. Remainder of MSK exam negative for any sub/objective signs of infection. Drains: L elbow 25cc, L shoulder 20cc. ICD10 Worksheet Patient Problems: Problems Problem Status Diagnosed Hypotension Acute Left arm pain Acute Sepsis affecting skin Acute
--- NOTE | 2017-01-05 10:53 | ECHO ---
[id number] + + [phone] : : [place] [address] : : [phone] + + Adult Echocardiographic Report + ---+ :Name: AAMIR MONCADA Tanseem Date: 01/05/2017 08:30 AM BP: 120/54 mmHg : : Hospital Admission Number: [id number] Location: 256: :: 1945 Gender: Male Height: 66 in : :Age: 71 yrs Race: HL,PTD Weight: 169 lb : :Reason For Study: increased troponins and shoulder : :infection r/o veg BSA: 1.9 meters2 : :History: CABG AVR : + ---+ MMode/2D Measurements & Calculations IVSd: 1.1 cm RVDd: 3.0 cm FS: 25.7 % Ao root diam: LVPWd: 1.1 cm LVIDd: 5.4 cm EDV(Teich): 3.4 cm LVIDs: 4.0 cm 142.1 ml ESV(Teich): 70.9 ml EF(Teich): 50.1 % LVLd ap4: 9.9 cm SV(MOD-sp4): EDV(MOD-sp4): 111.0 ml 231.0 ml LVLs ap4: 9.2 cm ESV(MOD-sp4): 120.0 ml EF(MOD-sp4): 48.1 % Normal Measurement Values: + + :LVIDd (3.5-5.7cm) IVSd (0.6-1.1cm) LVPWd (0.6-1.1cm) Aortic Root (2.0-3.7cm)Left Atrium (1.5-4.0cm): :LV Vol(d) (76-115ml) LV Vol(s) (29-48ml) Ejec Fraction (50-65%)PV Ayden (0.6- 1.2m/s) TV Ayden (0.4-1.0m/s) : :MV E Ayden (0.8-1.0m/s)MV A Ayden (0.3-1.0m/s)LVOT Ayden (0.7-1.2m/s) Asc Ao Ayden ( 0.9-1.8m/s) : + + Doppler Measurements & Calculations MV E max ayden: MV V2 max: Ao V2 max: LV V1 mean P.2 cm/sec 119.9 cm/sec 181.6 cm/sec 2.5 mmHg MV A max ayden: MV max PG: Ao max PG: LV V1 mean: 128.3 cm/sec 5.7 mmHg 13.2 mmHg 74.3 cm/sec MV E/A: 0.99 MV V2 mean: Ao mean PG: LV V1 VTI: 20.2 cm MV dec time: 80.5 cm/sec 8.1 mmHg 0.12 sec MV mean PG: Ao V2 mean: 3.0 mmHg 136.3 cm/sec MV V2 VTI: 26.8 cm Ao V2 VTI: 36.0 cm PA V2 max: 161.5 cm/sec PA max P.4 mmHg Left Ventricle The left ventricle is normal in size. There is mild concentric left ventricular hypertrophy. Left ventricular systolic function is low normal. Ejection Fraction = 45-50%. Basal to mid inferior wall and basal inferoseptal..this abnormallity was noted 2010 echo.. Right Ventricle The right ventricle is normal in size and function. Atria The Left Atrial Volume is 38 ml/m2. The left atrium is mildly dilated. Right atrial size is normal. Mitral Valve The mitral valve leaflets appear thickened, but open well. There is mild mitral annular calcification. No obvious vegetation noted attached to the mitral valve leaflets. There is no mitral valve stenosis. There is mild to moderate mitral regurgitation. Tricuspid Valve The tricuspid valve is normal in structure and function. There is no tricuspid valve vegetation. There is no tricuspid stenosis. There is trace tricuspid regurgitation. Aortic Valve Mean/max gradients are 8/13mmHg which is within normal limits for this type of valve. Trace to mild aortic regurgitation. There is a mechanical aortic valve. Pulmonic Valve The pulmonic valve is normal in structure and function. There is no pulmonic valvular regurgitation. Great Vessels The aortic root is not well visualized. Pericardium/Pleural There is no pericardial effusion. Conclusion A two-dimensional transthoracic echocardiogram with M-mode and Doppler was performed. Patient supine due to left shoulder infection. no definite change from 2010 echo except possoble some mild increase in mitral regurgitation. There is no evidence of a mass or vegetation. This does not rule out endocarditis. Left ventricular systolic function is low normal. Ejection Fraction = 45-50%. There is mild concentric left ventricular hypertrophy. The Left Atrial Volume is 38 ml/m2. The left atrium is mildly dilated. There is mild to moderate mitral regurgitation. There is trace tricuspid regurgitation. There is a mechanical aortic valve. Trace to mild aortic regurgitation. Mean/max gradients are 8/13mmHg which is within normal limits for this type of valve. The aortic root is not well visualized. Basal to mid inferior wall and basal inferoseptal..this abnormallity was noted 2010 echo.. No obvious vegetation noted attached to the mitral valve leaflets Patient supine due to left shoulder infection. no definite change from 2010 echo except possoble some mild increase in mitral regurgitation Final Reading Physician: Elias Neal signed on 01/05/2017 10:52 AM Ordering Physician: Fátima Wells Performed By: Lolis Toledo
--- NOTE | 2017-01-05 11:05 | SOAPPROG ---
SOAP Progress Note Assessment/Plan: Assessment: Plan: Objective: Vital Signs Temp Pulse Resp BP Pulse Ox 36.8 C 91 21 H 114/88 H 94 01/05/17 07:41 01/05/17 07:41 01/05/17 07:41 01/05/17 07:41 01/05/17 07:41 Microbiology 01/04/17 17:52 Gram Stain - Final Elbow - Aspirate 01/04/17 17:45 Gram Stain - Final Shoulder - Aspirate Laboratory Results 01/05/17 05:41 01/05/17 05:41 01/04/17 01/05/17 01/06/17 05:59 05:59 05:59 Intake Total 2944 Output Total 1945 Balance 999 PT 33.9 SEC (12.0-15.0) H 01/04/17 11:40 INR 3.28 (0.83-1.16) H 01/04/17 11:40 Crystal preparations from the shoulder and elbow contain many calcium pyrophosphate crystals. Possible calcium pyrophosphate disease. ICD10 Worksheet Patient Problems: Problems Problem Status Diagnosed Hypotension Acute Left arm pain Acute Sepsis affecting skin Acute
[2017-01-05] MEDS: VANCOMYCIN 750 MG in D5W 150 ML IV SCH ×2 (12:11→23:29)
--- NOTE | 2017-01-05 12:31 | GCON ---
[f rep st] CONSULTATION CARDIAC CONSULTATION. DATE OF CONSULTATION: 01/05/2017 INDICATION: Patient with known aortic valve replacement and coronary bypass grafting in 2004, with s tenting of the circumflex in 2016, who was admitted for a septic shoulder, who today had troponin of 16. HISTORY OF PRESENT ILLNESS: The patient is a very pleasant 71-year-old gentleman who has an extensiv e cardiac history. He was originally seen by [facility], and recently has been seen by Dr. Nair at [facility]. His cardiac workup here included a [place] mechanical aortic valve replacement with a c oronary bypass grafting in [address] Ernie Grimm. He apparently had a ALETHA to the LAD and a STANTON A to his diagonal. He also had saphenous vein grafts to unknown vessels. He apparently did well. H is last catheterization here was in 2009 that showed patent ALETHA, WOLFE, with essentially occluded pro ximal RCA and an LAD proximally occluded and a small circumflex artery with significant disease, whic h was treated medically. In 2015, he apparently had a stress test at [facility]. It showed an inferior infarction with renetta-infarction ischemia with some anterior ischemia. He subsequently had cardiac ca theterization by Dr. Nair that, once again, showed the patent ALETHA, WOLFE. A stent was placed in th e [place] circumflex, OM branch. He apparently was doing well. Since that time, he has been maintain ed on Coumadin and Plavix for the last year. His admission, this time, comes for left shoulder and e lbow pain. He apparently had a brief hypotensive episode while in the emergency room, which quickly responded. Nonetheless, he went to the OR, where he had surgical drainage of his shoulder. His init ial EKG showed normal 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, and with no acute changes. His troponin was 0.2 this morning. T he patient had blood work, had a troponin of 16, and his EKG showed no changes from admission EKG. I n talking to him, he feels well. Prior to his last stenting, he had chest pain. He denies PND, orth opnea, or any other issues. He is seen with his family, who confirm that he has had no cardiac issue s and basically came in because of the fevers and the shoulder pain. An echocardiogram done today wa s reviewed from the one in 2009 that showed an inferobasal hypokinesis. Could not see the mechanical valve well, but had normal velocities and did not appear to be rocking in the aortic position. His mitral valve did not show any clear-cut endocarditis lesions, either. At this point, I had a long di scussion with he and his family. Due to his asymptomatic state and an INR of 3.2, we will give FFP a nd then start him on a heparin drip. Tomorrow, we will make him n.p.o. We will do a ANA to get a be tter look at his valves and a heart catheterization to look at his coronary grafts and recent stentin g in 2016. He was able to tolerate these procedures without any complications in the past. He voice d understanding. ALLERGIES: There were no know allergies. PAST HISTORY: Includes heart disease, as above, type 2 diabetes mellitus on metformin. Apparently a history of atrial fibrillation, hypertension. FAMILY HISTORY: Noncontributory. SOCIAL HISTORY: He is a former smoker. He lives with his . No alcohol abuse issues. LABS: Please see his admission reconciliation form. PHYSICAL EXAMINATION: VITAL SIGNS: Blood pressure is 114/88. He appears in 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. He has n ot had any arrhythmias while at the hospital. GENERAL: He is a middle-aged male who is resting comf ortably in his bed. LEFT SHOULDER: He has a bandaged left shoulder from recent surgery. LUNGS: Cl ear. CARDIOVASCULAR: Regular rate and rhythm with a crisp heart sound from the aortic position. AB DOMEN: Soft, nontender. MUSCULOSKELETAL: No signs of clubbing or edema. EKG: Normal 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 with an interventricular conduction delay and nonspecific ST-T wave changes. No change on the EKG f rom 01/04 and 01/05. LABORATORY DATA: White count initially 13, hemoglobin 10. INR 3.2, creatinine 0.9, troponin initial ly 0.02 and now 16.3, glucose 290. ASSESSMENT: Marked rise in troponin without clear-cut symptomatology of myocardial infarction or uns table angina. Echocardiogram revealed no significant new wall motion abnormalities. No clear-cut ev idence of endocarditis. No pericardial effusion. The patient is hemodynamically stable and feeling well at this time. At this point, his INR is 3.2. I do not think acute intervention is necessary. However, I would like to reverse his INR with FFP, place him on a heparin drip, hold his metformin, a nd tomorrow perform a transesophageal echocardiogram as well as a heart catheterization. The related procedure risks, benefits, complications, indications, and alternatives were discussed with the abhi ent and his . They understand, except, and wish us to proceed. PLAN: Continue current medical management as ordered, ANA, and heart catheterization tomorrow unless the patient were to have unstable situations today. This was all fully discussed with the patient a nd his family, and questions were answered. Thank you. /[id number]/MODL
[2017-01-05] MEDS: INSULIN LISPRO 100 UNIT/1 ML VIAL HIGH SC SCH ×2 (13:18→18:49)
[2017-01-05] MEDS: oxyCODONE IR 5 MG TAB PO PRN ×3 (14:34→23:30)
[2017-01-05 14:48] LABS: INR 2.37 (0.83-1.16); PROTIME(PATIENT) 26.1 SEC (12.0-15.0)
--- NOTE | 2017-01-05 15:42 | HOSPPROG ---
Hospitalist Progress Note Assessment/Plan: * Septic shoulder/elbow s/p I&D -IV Vanco, IV Zosyn -consult ID * Severe sepsis - improved * Non STEMI - troponin 16 -cards to cath in am * CAD/CABG/stents -ASA/Plavix, metoprolol, statin * AVR - chronic anticoagulation -reverse anti-coag for cath in am -ANA in am * Dm II * Afib Subjective: no complaints Objective: Vital Signs Temp Pulse Resp BP Pulse Ox 36.8 C 91 21 H 114/88 H 94 01/05/17 07:41 01/05/17 07:41 01/05/17 07:41 01/05/17 07:41 01/05/17 07:41 Microbiology 01/04/17 17:52 Gram Stain - Final Elbow - Aspirate 01/04/17 17:45 Gram Stain - Final Shoulder - Aspirate 01/04/17 20:23 Gram Stain - Final Shoulder - Tissue 01/04/17 19:55 Gram Stain - Final Elbow - Eswab 01/04/17 19:55 Gram Stain - Final Elbow - Aspirate 01/04/17 19:55 Gram Stain - Final Elbow - Tissue 01/04/17 20:23 Gram Stain - Final Shoulder - Swab Laboratory Results 01/05/17 05:41 01/05/17 05:41 01/04/17 01/05/17 01/06/17 05:59 05:59 05:59 Intake Total 2944 Output Total 1945 Balance 999 PT 26.1 SEC (12.0-15.0) H 01/05/17 14:20 INR 2.37 (0.83-1.16) H 01/05/17 14:20 d/w Dr. patel - resume IV Vanco ECHO: unremarkable valve CXR: possible infiltrate - Physical Exam Constitutional: no apparent distress, appears nourished, not in pain Cardiovascular: regular rate and rhythym, no murmur, rub, or gallop Respiratory: no respiratory distress, no rales or rhonchi, clear to auscultation Gastrointestinal: normoactive bowel sounds, soft, non-tender abdomen, no palpable masses Skin: no rashes or abrasions, no fluctuance, no induration Neurologic: AAOx3, sensation intact bilaterally Psychiatric: interacting appropriately, not anxious, not encephalopathic, thought process linear ICD10 Worksheet Patient Problems: Problems Problem Status Diagnosed Hypotension Acute Left arm pain Acute Sepsis affecting skin Acute
[2017-01-05] MEDS ORDERED: HEPARIN/DEXTROSE 25,000 UNIT/500 ML BAG IV ONE (16:01)
[2017-01-05] MEDS ORDERED: HEPARIN 10,000 UNIT/10 ML MDV ONE (16:01)
[2017-01-05] MEDS ORDERED: HEPARIN 10,000 UNIT/10 ML MDV IVP PRN (16:07)
[2017-01-05] MEDS: HEPARIN/DEXTROSE 500 ML IV SCH (16:25)
[2017-01-05] MEDS ORDERED: HEPARIN 10,000 UNIT/10 ML MDV IVP ONE (16:30)
[2017-01-05] MEDS ORDERED: NITROGLYCERIN 0.4 MG BTL SL ONE (19:01)
[2017-01-05 19:15] LABS: HEMATOCRIT 27.6 % (40.0-51.0); HEMOGLOBIN 8.9 g/dL (13.7-17.5)
[2017-01-05] MEDS ORDERED: FUROSEMIDE 40 MG/4 ML VIAL IVP ONE (19:21)
[2017-01-05 19:28] LABS: INR 2.71 (0.83-1.16); PROTIME(PATIENT) 29.1 SEC (12.0-15.0)
--- NOTE | 2017-01-05 20:04 | DX ---
Chest, One View Portable January 05, 2017 at 1916 Hours History: Dyspnea . Comparison: Earlier today at 0620 hours. Findings: Cardiac silhouette is normal in size. Median sternotomy wires and mediastinal clips from c oronary artery bypass. Right internal jugular line superior vena cava. Bilateral diffuse alveolar opacities again noted. No pleural effusion. Impression: 1. No significant change in bilateral diffuse alveolar opacities representing diffuse pneumonia versu s pulmonary edema. 2. Central line without pneumothorax.
[2017-01-05] MEDS ORDERED: NON-FORMULARY NEW DRUG (Ranitidine Hcl [Ranitidine Hcl 150 Mg] 150 MG) PO SCH (21:00)
[2017-01-05] MEDS ORDERED: PROTOCOL MAGNESIUM 1 DOSE IV PRN (21:06)
[2017-01-05] MEDS ORDERED: PROTOCOL POTASSIUM 1 DOSE MISC PRN (21:06)
[2017-01-05] MEDS: INSULIN GLARGINE 100 UNITS/ML SYRINGE SC SCH (21:12)
[2017-01-05] MEDS: METOPROLOL TARTRATE 50 MG TAB PO SCH (21:12)
[2017-01-05] MEDS: FAMOTIDINE 20 MG TAB PO SCH (21:12)
[2017-01-05 22:16] LABS: ALBUMIN 3.4 g/dL (3.5-5.0); ANION GAP 8 mEq/L (8-16); CALCIUM 8.3 mg/dL (8.5-10.4); CARBON DIOXIDE 26 mEq/l (22-31); CHLORIDE 101 mEq/L (97-110); CREATININE 1.2 mg/dL (0.7-1.3); GLOMERULAR FILTRATION RATE 60; GLUCOSE 359 mg/dL (70-100); MAGNESIUM 1.6 mg/dL (1.6-2.3); POTASSIUM 4.5 mEq/L (3.5-5.2); SODIUM 135 mEq/L (134-144)
--- NOTE | 2017-01-05 22:17 | GCON ---
[f rep st] CONSULTATION CRITICAL CARE CONSULTATION REASON FOR CONSULTATION: Intensive care unit evaluation and management of septic arthritis, coronary artery disease and bilateral pulmonary infiltrates. HISTORY: The patient is a very pleasant 71-year-old who has an extensive cardiac history. He was admitted yesterday secondary to shoulder pain. He had been evaluated at the [facility] and [facility] for the pain reportedly without any positive findings and little relief with pain control medications. He was febrile on the day of admission and presented to the [place] [facility] secondary to severe ongoing shoulder pain as well as elbow and arm pain. His reports that he was coughing and had some chest congestion and occasionally would bring up some mucus and possibly a small amount of blood. He does have a history of diabetes mellitus and has noted increased blood sugars for him. He has an extensive cardiac history with coronary artery disease, open heart surgery, aortic valve replacement, and previous stents. The patient is chronically anticoagulated. MRI images showed effusions in the left shoulder and elbow consistent with a possible septic arthritis. In addition, chest x-ray showed diffuse interstitial and alveolar infiltrates, possibly consistent with pulmonary edema or diffuse pneumonia. He was taken to the operating room subsequently and his left shoulder and left elbow were drained. He is being treated with Zosyn as well as vancomycin. He was also noted to have a troponin of 16. He has been seen by Cardiology. EKG was unrevealing for changes consistent with acute myocardial infarction. He was seen by Cardiology. Cardiac echo showed no evidence of a wall motion abnormality or valvular changes consistent with endocarditis. Furthermore, the patient was asymptomatic from a cardiac standpoint. A ANA and cardiac catheterization are being planned for tomorrow. The patient has been returned to the intensive care unit and is in stable condition. He has little in the way of complaints. He does have some expected pain related to his left shoulder and elbow. He does report chest congestion and some shortness of breath. He denies anterior chest pain. He has an intermittent cough and will occasionally bring up some mucus. Blood pressures are stable. He is not requiring pressors. Lactates have ranged from 1.6-3.0. He is on IV fluids. Multiple cultures are pending. PAST MEDICAL HISTORY: It is remarkable for heart disease as outlined above, including coronary artery disease with coronary artery bypass grafting, stenting , and aortic valve replacement. He is on chronic anticoagulation. He has a history of atrial fibrillation, type 2 diabetes, systemic hypertension, and gastroesophageal reflux disease. MEDICATIONS: Humalog insulin, Zantac 150 b.i.d., clopidogrel, amlodipine, Lopressor, lisinopril, atorvastatin, metformin, Coumadin, p.r.n. hydrocodone and oxycodone, and aspirin. SOCIAL HISTORY: The patient is . He smoked cigarettes in the distant past, quit 30 years ago. Alcohol is denied. FAMILY HISTORY: Noncontributory. REVIEW OF SYSTEMS: A 10-point review of systems is negative except as mentioned in the HPI above. PHYSICAL EXAMINATION: GENERAL: A very pleasant gentleman who is resting comfortably in bed. VITAL SIGNS: Blood pressure is 110/40, heart rate 95 with 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 on the monitor, respiratory rate is 20. On 4 L, saturations are 95 %. He is afebrile. Maximum temperature is 38.3. HEENT: Remarkable for the nasal cannula being in place. He appears somewhat pale. Mucous membranes are moist. SKIN: The left shoulder and left elbow are dressed postoperatively. CHEST: Congestion, rhonchi, wheezes, and rales are heard bilaterally. Breath sounds are diminished at the bases. HEART: Regular in rate and rhythm. His valve sounds fine with associated murmur present. There is no apparent gallop. P2 appears normal. ABDOMEN: Soft and nontender. There is mild distention. Bowel sounds are present, but diminished. EXTREMITIES: The lower extremities are unremarkable for edema, cords, or tenderness. NEUROLOGIC: Intact, nonfocal. Mentation is intact. He is oriented x3. DATABASE: Radiologic studies are as outlined above. Current chest x-ray shows impressive infiltrates bilaterally, progressive on the right and improved on the left. There are no significant effusions. Cardiac silhouette is generous. LABORATORY: White blood cell count is 11,900, hematocrit 28.8, down from 29.9 on admission. Platelets are 172,000. INR is 2.37. Most recent lactate is 1.6. Basic metabolic panel is within normal limits with the exception of elevated glucoses at approximately 285. AST is 96 with an ALT of 43. Troponin is 10.9, down from 16. C-reactive protein is markedly elevated at 224. Albumin is 2.9. Fluid from his joints is consistent with septic arthritis. Gram stain and cultures are pending. ASSESSMENT: 1. Septic arthritis of the left shoulder and elbow, status post drainage. Appropriate antibiotics are being given. Clinically, he is doing well with adequate blood pressure and without signs of significant sepsis. 2. Elevated troponins with a history of coronary artery disease, bypass grafting, and aortic valve replacement. Cardiology is following and planning on taking him for ANA and catheterization tomorrow. 3. Diffuse pulmonary infiltrates, right greater the left. The etiology is unclear to me at this time. Differential includes adult respiratory distress syndrome, congestive heart failure, pneumonia, or a combination of these. He does have significant pulmonary congestion suggesting bronchopneumonia and/or congestive heart failure. Oxygen requirements are only at 4 L. He is on broad- spectrum antibiotics. Obviously, pulmonary status will need to be followed closely. A BNP will be checked. Lasix diuresis will be initiated. 4. Anticoagulation. Coumadin is being held. It was reversed for surgery but INR remains elevated. A heparin drip is being started. 5. Insulin-requiring diabetes mellitus. Blood sugars are elevated. He is on sliding scale insulin which will be continued. Glucoses will be followed. 6. Hypertension. Blood pressures are normal, slightly on the low side now. He is on multiple antihypertensives which are currently being held with the exception of metoprolol. PLAN AND RECOMMENDATIONS: The patient will be kept in the intensive care unit. Heparin anticoagulation will be initiated. Antiplatelet agents will be continued. He is on albuterol and guaifenesin. This will be continued. Respiratory status will be followed closely. BNP will be obtained. Lasix will be given. A chest x-ray will be repeated in the a.m. Glucoses will be followed and covered appropriately. Antibiotics will be continued. Cultures will be awaited. Cardiology considering ANA in catheterization in the a.m. Further plans and recommendations will be made based on his progress over the next 12-24 hours. /[id number]/MODL MTDD
[2017-01-05] MEDS ORDERED: MAGNESIUM SULF 1 GM/DEXTROSE 100 ML IV ONE (22:21)
[2017-01-05] MEDS: TEMAZEPAM 15 MG CAP PO PRN (23:29)
[2017-01-06 04:17] LABS: % IMMATURE GRANULYOCYTES 0.3 % (0.0-1.1); ABSOLUTE IMMATURE GRANULOCYTES 0.03 10^3/uL (0.00-0.10); ADD DIFF? NO; ADD MORPH? NO; ADD SCAN? NO; ATYPICAL LYMPHOCYTE FLAG 0 (0-99); FRAGMENT RBC FLAG 0 (0-99); HEMATOCRIT 25.9 % (40.0-51.0); HEMOGLOBIN 8.4 g/dL (13.7-17.5); LEFT SHIFT FLG 10 (0-99); LIPEMIA HEMOLYSIS FLAG 80 (0-99); MEAN CELL HEMOGLOBIN 32.3 pg (27.9-34.1); MEAN CELL HEMOGLOBIN CONCENTR. 32.4 g/dL (32.4-36.7); MEAN CELL VOLUME 99.6 fL (81.5-99.8); MEAN PLATELET VOLUME 10.2 fL (8.7-11.7); PLATELET CLUMPS FLAG 10 (0-99); PLATELET COUNT 195 10^3/uL (150-400); RED CELL DISTRIBUTION WIDTH 14.4 % (11.5-15.2)
[2017-01-06 04:32] LABS: INR 2.68 (0.83-1.16); PROTIME(PATIENT) 28.8 SEC (12.0-15.0)
[2017-01-06 04:33] LABS: ANION GAP 8 mEq/L (8-16); CARBON DIOXIDE 27 mEq/l (22-31); CHLORIDE 100 mEq/L (97-110); CHOLESTEROL 122 mg/dL (140-220); CREATININE 1.1 mg/dL (0.7-1.3); GLOMERULAR FILTRATION RATE > 60; GLUCOSE 329 mg/dL (70-100); POTASSIUM 4.1 mEq/L (3.5-5.2); SODIUM 135 mEq/L (134-144); TRIGLYCERIDE 247 mg/dL (40-150); VERY LOW DENSITY LIPOPROTEINS 49 mg/dL (8-25)
[2017-01-06 04:34] LABS: CALCIUM 8.4 mg/dL (8.5-10.4); CHOLESTEROL/HDL RATIO 5.08 RATIO (1.00-4.97); HIGH DENSITY LIPOPROTEIN 24 mg/dL (40-65); LDL/HDL RATIO 2.04 RATIO (1.00-3.64); LOW DENSITY LIPOPROTEIN 49 mg/dL (80-100); MAGNESIUM 2.2 mg/dL (1.6-2.3); NON-HIGH DENSITY LIPOPROTEIN 98 mg/dL (90-129)
[2017-01-06] MEDS: oxyCODONE IR 5 MG TAB PO PRN ×4 (05:06→21:07)
[2017-01-06] MEDS: ACETAMINOPHEN 325 MG TAB PO PRN (05:07)
[2017-01-06] MEDS: PIPERACILLIN/TAZO 3.375 GM/DEX 50 ML IV SCH ×4 (05:07→23:08)
[2017-01-06] MEDS ORDERED: ACETAMINOPHEN 325 MG TAB PO PRN (06:00)
[2017-01-06] MEDS ORDERED: NITROGLYCERIN 0.4 MG BTL SL PRN (06:00)
[2017-01-06] MEDS: HYDROmorphONE/DILAUDID 1 MG/ML SYR IVP PRN ×3 (06:04→16:40)
--- NOTE | 2017-01-06 07:45 | SOAPPROG ---
[id number] pain management - Continue NWB LUE and immobilization with sling, left hand and wrist ROM okay - Keep drains intact, and monitor output - Continue antibiotics with vancomycin and zosyn, ID consult requested - Dressing change today Plan: 01/06/17 07:44 01/06/17 07:47 01/06/17 08:13 01/06/17 09:27 Subjective: Pt states his left elbow and left shoulder pain are much improved since before surgery. Pain is a 5/10, and well-controlled. Pt states b/l heel pain has resolved. Pt has had some intermittent chest pains and SOB. Pt denies fever, chills, abdominal pain, nausea, vomiting, calf pain, numbness and tingling. Objective: L shoulder output: 60cc L elbow output: 20cc WBC trending down Vital Signs Temp Pulse Resp BP Pulse Ox 37.2 C 99 17 126/55 H 92 01/06/17 04:00 01/06/17 06:00 01/06/17 06:00 01/06/17 06:00 01/06/17 06:00 Microbiology 01/04/17 19:55 Mycobacterial Smear (FL[place]QUITO) - Final Elbow - Tissue 01/04/17 19:55 Mycobacterial Smear (FL[place]QU[place]O) - Final Elbow - Aspirate 01/04/17 20:23 Mycobacterial Smear (FL[place]QUITO) - Final Shoulder - Aspirate 01/04/17 20:23 Mycobacterial Smear (FLAQUITO) - Final Shoulder - Tissue 01/04/17 20:23 Gram Stain - Final Shoulder - Swab 01/04/17 19:55 Gram Stain - Final Elbow - Tissue 01/04/17 19:55 Gram Stain - Final Elbow - Eswab 01/04/17 19:55 Gram Stain - Final Elbow - Aspirate 01/04/17 17:52 Gram Stain - Final Elbow - Aspirate 01/04/17 17:45 Gram Stain - Final Shoulder - Aspirate 01/04/17 20:23 Gram Stain - Final Shoulder - Tissue Laboratory Results 01/06/17 04:00 01/06/17 04:00 01/05/17 01/06/17 01/07/17 05:59 05:59 05:59 Intake Total 0454 3481 Output Total 1025 4730 Balance 999 -1249 PT 28.8 SEC (12.0-15.0) H 01/06/17 04:00 INR 2.68 (0.83-1.16) H 01/06/17 04:00 Physical Exam - Physical Exam General Appearance: alert, no apparent distress Peripheral Pulses: 1+: dorsalis-pedis (R), dorsalis-pedis (L) Skin: normal color, warm/dry, other (Incision site c/d/i without surrounding erythema or drainage) Extremities: normal capillary refill, other (ROM LUE deferred due to immobilization requirement), No pedal edema, No calf tenderness, No swelling, No Gerard's sign Neuro/Psych: no motor/sensory deficits, alert, normal mood/affect, oriented x 3 ICD10 Worksheet Patient Problems: Problems Problem Status Diagnosed Hypotension Acute Left arm pain Acute Sepsis affecting skin Acute <Adam Erwin - Last Filed: 01/06/17 12:30> SOAP Progress Note Assessment/Plan: Assessment: POD 2 s/p L shoulder and elbow arthrotomy/washout surgeries for synovial asp WBC of 60K+ and 175K+, respectively, in high risk patient. CPPD crystals found in aspirate, however WBC counts higher than normally seen with pseudogout, and super-infection is a concern, however Micro still negative for growth in numerous cxs (obtained after patient had multiple IV abx). Plan: Continue NWB/immobilizer LUE, drains and immob'd until d/c'd, IV abx until cxs deemed neg and final, awaiting ID input. Card w/u underway. We will follow with you. Please call with any questions. 01/06/17 12:26 Objective: Vital Signs Temp Pulse Resp BP Pulse Ox 37.1 C 100 20 128/61 H 95 01/06/17 08:00 01/06/17 08:00 01/06/17 08:00 01/06/17 08:00 01/06/17 08:00 Microbiology 01/04/17 20:23 Gram Stain - Final Shoulder - Tissue 01/04/17 19:55 Mycobacterial Smear (FLAQUITO) - Final Elbow - Tissue 01/04/17 19:55 Mycobacterial Smear (FLAQUITO) - Final Elbow - Aspirate 01/04/17 20:23 Mycobacterial Smear (FL[place]QUITO) - Final Shoulder - Aspirate 01/04/17 20:23 Mycobacterial Smear (FLAQUITO) - Final Shoulder - Tissue 01/04/17 20:23 Gram Stain - Final Shoulder - Swab 01/04/17 19:55 Gram Stain - Final Elbow - Tissue 01/04/17 19:55 Gram Stain - Final Elbow - Eswab 01/04/17 19:55 Gram Stain - Final Elbow - Aspirate 01/04/17 17:52 Gram Stain - Final Elbow - Aspirate 01/04/17 17:45 Gram Stain - Final Shoulder - Aspirate Laboratory Results 01/06/17 04:00 01/06/17 04:00 01/05/17 01/06/17 01/07/17 05:59 05:59 05:59 Intake Total 2944 3481 Output Total 7748 9663 Balance 999 -2849 PT 28.8 SEC (12.0-15.0) H 01/06/17 04:00 INR 2.68 (0.83-1.16) H 01/06/17 04:00
[2017-01-06] MEDS: guaiFENesin 200 MG/10 ML UDCUP PO PRN (08:26)
--- NOTE | 2017-01-06 08:30 | CPEKG ---
Heart Rate: 120 RR Interval: 500 P-R Interval: 112 QRSD Interval: 146 QT Interval: 364 QTC Interval: 515 P Austin: 260 QRS Austin: -41 T Wave Austin: 139 EKG Severity - ABNORMAL ECG - EKG Impression: SINUS OR ECTOPIC ATRIAL TACHYCARDIA EKG Impression: LEFT BUNDLE BRANCH BLOCK Electronically Signed By: Rodney Holguin 06-Jan-2017 11:38:17
--- NOTE | 2017-01-06 08:48 | DX ---
Portable AP Upright Chest at 6:28 AM on January 06, 2017 Clinical History: 71-year-old male in the ICU, presenting for follow-up of respiratory status. Comparison Study: Chest, dated January 05, 2017. Findings: Again noted are median sternotomy wires, mediastinal surgical clips, an aortic valvuloplast y, telemetry monitoring lead lines, and oxygen tubing. The right IJ central venous catheter is stable in position, terminating in the distal SVC. The cardiac silhouette remains enlarged, and there are p ersistent bilateral interstitial/alveolar infiltrates. Trace blunting of the right costophrenic angle is seen. There is no pneumothorax. There are mild hypoventilatory features. Impression: Radiographically unchanged from January 05, 2017.
--- NOTE | 2017-01-06 08:54 | CPEKG ---
Heart Rate: 100 RR Interval: 600 P-R Interval: 192 QRSD Interval: 134 QT Interval: 372 QTC Interval: 480 P [place]: 95 QRS [place]: -27 T Wave [place]: 146 EKG Severity - ABNORMAL ECG - EKG Impression: SINUS TACHYCARDIA EKG Impression: LEFT BUNDLE BRANCH BLOCK EKG Impression: UNCHANGED IN COMPARISON TO PRIOR Electronically Signed By: Bryant Garcia 08-Jan-2017 08:47:14
[2017-01-06] MEDS ORDERED: NON-FORMULARY NEW DRUG (Atorvastatin Calcium [Atorvastatin Calcium] 80 MG) PO SCH (09:00)
[2017-01-06] MEDS: METOPROLOL TARTRATE 50 MG TAB PO SCH ×2 (09:18→21:02)
[2017-01-06] MEDS: INSULIN LISPRO 100 UNIT/1 ML VIAL HIGH SC SCH ×3 (09:18→18:30)
[2017-01-06] MEDS: ATORVASTATIN CALCIUM 40 MG TAB PO SCH (09:18)
[2017-01-06] MEDS: ASPIRIN 81 MG CHEWABLE TAB PO SCH (09:18)
[2017-01-06] MEDS: FAMOTIDINE 20 MG TAB PO SCH ×2 (09:18→21:02)
[2017-01-06] MEDS: CLOPIDOGREL BISULFATE 75 MG TAB PO SCH (09:40)
--- NOTE | 2017-01-06 09:44 | PDINTPN ---
Fx Artist Progress Note Assessment/Plan: Assessment/Plan: * Septic arthritis-on abx * CAD-H/O stents, CABG * CHF-elevated BMP -give another dose of lasix today -ANA today * Resp failure-improved with diureses * Diffuse pulmonary infiltrates-likely pulmonary edema -check cxr in am * DM * HTN * VTE proph Subjective: looks and feels better today. Less breathless. Less cough Objective: Vital Signs Temp Pulse Resp BP Pulse Ox 37.1 C 100 20 128/61 H 95 01/06/17 08:00 01/06/17 08:00 01/06/17 08:00 01/06/17 08:00 01/06/17 08:00 Microbiology 01/04/17 19:55 Mycobacterial Smear (FLAQUITO) - Final Elbow - Tissue 01/04/17 19:55 Mycobacterial Smear (FLAQUITO) - Final Elbow - Aspirate 01/04/17 20:23 Mycobacterial Smear (FLAQUITO) - Final Shoulder - Aspirate 01/04/17 20:23 Mycobacterial Smear (FLAQUITO) - Final Shoulder - Tissue 01/04/17 20:23 Gram Stain - Final Shoulder - Swab 01/04/17 19:55 Gram Stain - Final Elbow - Tissue 01/04/17 19:55 Gram Stain - Final Elbow - Eswab 01/04/17 19:55 Gram Stain - Final Elbow - Aspirate 01/04/17 17:52 Gram Stain - Final Elbow - Aspirate 01/04/17 17:45 Gram Stain - Final Shoulder - Aspirate 01/04/17 20:23 Gram Stain - Final Shoulder - Tissue Laboratory Results 01/06/17 04:00 01/06/17 04:00 01/05/17 01/06/17 01/07/17 05:59 05:59 05:59 Intake Total 2944 3481 Output Total 1945 4730 Balance 999 -1249 PT 28.8 SEC (12.0-15.0) H 01/06/17 04:00 INR 2.68 (0.83-1.16) H 01/06/17 04:00 CXR-reviewed by myself. diffuse infiltrates. Minimal change Physical Exam - Physical Exam General Appearance: alert, no apparent distress EENT: PERRL/EOMI, normal ENT inspection, pharynx normal, TMs normal Neck: non-tender, full range of motion, supple, normal inspection Respiratory: crackles (basilar), No respiratory distress, No stridor, No wheezing Cardiac/Chest: normal peripheral pulses, regular rate, rhythm, systolic murmur Peripheral Pulses: 2+: carotid (R), carotid (L), femoral (R), femoral (L), dorsalis-pedis (R), dorsalis-pedis (L) Abdomen: normal bowel sounds, non-tender, soft Male Genitalia: deferred Rectal: deferred Skin: normal color, warm/dry Neuro/Psych: no motor/sensory deficits, alert, normal mood/affect, oriented x 3 ICD10 Worksheet Patient Problems: Problems Problem Status Diagnosed Hypotension Acute Left arm pain Acute Sepsis affecting skin Acute
[2017-01-06] MEDS ORDERED: FUROSEMIDE 40 MG/4 ML VIAL IVP ONE (09:46)
[2017-01-06] MEDS: GUAIFENESIN/DM 10 ML UDCUP PO PRN ×2 (10:56→18:29)
[2017-01-06] MEDS ORDERED: PHYTONADIONE 2 MG in NS 50 ML IV ONE (11:00)
[2017-01-06] MEDS: HEPARIN/DEXTROSE 500 ML IV SCH (11:07)
[2017-01-06] MEDS: VANCOMYCIN 750 MG in D5W 150 ML IV SCH (12:14)
[2017-01-06] MEDS ORDERED: fentaNYL 100 MCG/2 ML INJ ONE (12:52)
[2017-01-06] MEDS ORDERED: LIDOCAINE 1% 30 ML SDV ONE (12:52)
[2017-01-06] MEDS ORDERED: MIDAZOLAM 2 MG/2 ML VIAL ONE (12:52)
[2017-01-06] MEDS ORDERED: IOPAMIDOL (ISOVUE 370) 100 ML BTL IV ONE ×2 (12:53→16:04)
[2017-01-06] MEDS ORDERED: diphenhydrAMINE 25 MG CAP PO ONE (13:32)
[2017-01-06] MEDS ORDERED: ASPIRIN EC 325 MG TAB PO ONE (13:32)
[2017-01-06] MEDS ORDERED: DIAZEPAM 5 MG TAB PO ONE (13:32)
--- NOTE | 2017-01-06 14:22 | HOSPPROG ---
Hospitalist Progress Note Assessment/Plan: * Septic shoulder/elbow s/p I&D -IV Vanco, IV Zosyn -monitor cultures * Severe sepsis - improved * Non STEMI - troponin 16 -cath today * CAD/CABG/stents -ASA/Plavix, metoprolol, statin * AVR - chronic anticoagulation -reverse anti-coag for cath -ANA today * Acute respiratory failure due to pulmonary edema -IV lasix * Acute systolic CHF exacerbation - EF 45% * DM II -uncontrolled, now on Lantus * Afib Subjective: No new complaints Objective: Vital Signs Temp Pulse Resp BP Pulse Ox 37.1 C 98 22 H 126/55 H 98 01/06/17 08:00 01/06/17 13:00 01/06/17 13:00 01/06/17 13:00 01/06/17 13:00 Microbiology 01/04/17 20:23 Gram Stain - Final Shoulder - Swab 01/04/17 19:55 Gram Stain - Final Elbow - Eswab 01/04/17 19:55 Gram Stain - Final Elbow - Aspirate 01/04/17 19:55 Gram Stain - Final Elbow - Tissue 01/04/17 17:52 Gram Stain - Final Elbow - Aspirate 01/04/17 17:45 Gram Stain - Final Shoulder - Aspirate 01/04/17 20:23 Gram Stain - Final Shoulder - Tissue 01/04/17 19:55 Mycobacterial Smear (FLAQUITO) - Final Elbow - Tissue 01/04/17 19:55 Mycobacterial Smear (FLAQUITO) - Final Elbow - Aspirate 01/04/17 20:23 Mycobacterial Smear (FLAQUITO) - Final Shoulder - Aspirate 01/04/17 20:23 Mycobacterial Smear (FLAQUITO) - Final Shoulder - Tissue Laboratory Results 01/06/17 04:00 01/06/17 04:00 01/05/17 01/06/17 01/07/17 05:59 05:59 05:59 Intake Total 2944 3481 Output Total 1794 6270 1500 Balance 999 -2849 -1500 PT 28.8 SEC (12.0-15.0) H 01/06/17 04:00 INR 2.68 (0.83-1.16) H 01/06/17 04:00 CXR viewed, my personal interpretation is: pulmonary edema ECHO: Ef 45% - Physical Exam Constitutional: no apparent distress, appears nourished, not in pain Cardiovascular: regular rate and rhythym, no murmur, rub, or gallop Respiratory: no respiratory distress, no rales or rhonchi, clear to auscultation Gastrointestinal: normoactive bowel sounds, soft, non-tender abdomen, no palpable masses Skin: no rashes or abrasions, no fluctuance, no induration Neurologic: AAOx3, sensation intact bilaterally Psychiatric: interacting appropriately, not anxious, not encephalopathic, thought process linear ICD10 Worksheet Patient Problems: Problems Problem Status Diagnosed Hypotension Acute Left arm pain Acute Sepsis affecting skin Acute
[2017-01-06] MEDS ORDERED: LORazepam 2 MG/ML INJ ONE (14:39)
[2017-01-06] MEDS ORDERED: LORazepam 2 MG/ML INJ IVP ONE (15:00)
[2017-01-06] MEDS ORDERED: FUROSEMIDE 20 MG/2 ML VIAL IVP SCH ×2 (15:00)
[2017-01-06] MEDS ORDERED: PROPOFOL/EMULSION 500 MG/50 ML BOTTLE IV ONE (15:08)
[2017-01-06] MEDS ORDERED: PHENYLEPHRINE HCL 100 MCG/ML SYR ONE (15:45)
[2017-01-06] MEDS ORDERED: ATROPINE SULFATE 1 MG/10 ML SYR ONE (16:22)
--- NOTE | 2017-01-06 16:24 | PDDXCAT ---
Diagnostic Cath Note - . Date: 01/06/17 Brooch Maker Novelty: Macho Indication: other (nstemi with troponin rise) - Materials Left Heart Cath size: 6F Left Heart Cath materials: standard multipack (JL4, JR4, pigtail), CLAUDE - Findings-Left Heart Catheterization LM: 1.normal LAD: 1. prox occl LCX: 1.distal occl...stent in prox mom was patent RCA: 1. prox occl (known from prior cath) rSV. known occl from prior cath reports WOLFE: 1. widely patent ot 1st diag which was bifurcated..the lower arm waws occl post wolfe takedown and it backfilled into a superior branch of the diagonal..thee was some l to r collaterals KOKO: 1.patent from the lad with some l to r collaterals LVEF: no done ..mechanical avr wit normal function per flouro Complications: none Estimated blood loss: <50ml Closure method: manual pressure Assessment: 1. patent wolfe to 1st dg and koko to lad ..some l to r collats noted...patent mom cx stent...no change from [facility] Plan: 1. continue med management Patient Problems: Problems Problem Status Diagnosed Hypotension Acute Left arm pain Acute Sepsis affecting skin Acute
[2017-01-06] MEDS ORDERED: METOPROLOL TARTRATE 5 MG/5 ML INJ IVP ONE (16:49)
[2017-01-06] MEDS ORDERED: BEER 1 EACH EA PO ONE (16:56)
[2017-01-06] MEDS ORDERED: LORazepam 2 MG/ML INJ IVP PRN (18:06)
[2017-01-06] MEDS ORDERED: METOPROLOL TARTRATE 5 MG/5 ML INJ IVP PRN (18:10)
[2017-01-06 18:49] LABS: POTASSIUM 3.7 mEq/L (3.5-5.2)
[2017-01-06] MEDS ORDERED: HYDROmorphONE/DILAUDID 1 MG/ML SYR IVP ONE (18:55)
[2017-01-06] MEDS ORDERED: POTASSIUM Cl (KCl) 50 ML IV ONE (19:41)
[2017-01-06] MEDS: INSULIN GLARGINE 100 UNITS/ML SYRINGE SC SCH (21:03)
--- NOTE | 2017-01-06 23:41 | GCON ---
[f rep st] CONSULTATION INFECTIOUS DISEASE CONSULTATION REFERRING PHYSICIAN: Adam Erwin MD REASON FOR CONSULTATION: Possible multiple joint septic arthritis. HISTORY OF PRESENT ILLNESS: Patient is a 71-year-old male who presented to [facility] through the emergency room on 01/04/2017. The patient initially presented with left-sided shoulder a nd elbow pain, as well as acute respiratory failure. Images of the patient's lungs revealed bilatera l infiltrates. He was admitted by the hospitalist with a diagnosis of suspected septic left shoulder and elbow. He was also given the diagnosis of acute sepsis. He was started on Zosyn and vancomycin empirically. Blood cultures were obtained. The patient went to surgery on 01/04/2017 for washout o f these joints. Results from the joint fluid shows significant amounts of white blood cells in the j oint fluids in both joints. There are no organisms seen on Gram stain and the crystal studies are po sitive for calcium pyrophosphate. Patient also was shown to have an increasing troponin. He had a 2 D echocardiogram that shows no clear evidence of a mass or vegetation. It does show mild to moderate mitral valve regurgitation. Mechanical aortic valve could not be viewed very well. Due to the risi ng troponins, the patient will be taken today for transesophageal echocardiogram as well as arteriogr am. Currently, he is resting in his hospital bed. He requires 3-5 L of oxygen for good saturations. He is mildly tachycardic but otherwise stable blood pressures. Primary complaint is shoulder and e lbow pain. PAST MEDICAL HISTORY: 1. Diabetes mellitus type 2. 2. Atrial fibrillation. 3. Hypertension. 4. Coronary artery disease. 5. Aortic valve replacement. PAST SURGICAL HISTORY: Status post coronary artery bypass surgery with AVR. ANTIBIOTICS: 1. Vancomycin. 2. Zosyn. ALLERGIES: Patient has no known drug allergies. SOCIAL HISTORY: The patient is a former tobacco user. No current alcohol use. He is and wheeler s a supportive family. FAMILY HISTORY: Reviewed, but noncontributory. REVIEW OF SYSTEMS: Other than that detailed above in history of present illness, a comprehensive 10- system review is negative. PHYSICAL EXAMINATION: VITAL SIGNS: Temperature maximum is 38.3, temperature current is 37.1, heart rate is 102, respiratory rate 20, blood pressure 117/73. GENERAL: The patient is a well-formed, wel l-nourished male, in no acute distress. He does not appear toxic in appearance. He is alert and monie ented x3. He has a pleasant demeanor. HEENT: Normocephalic for age. Atraumatic. No scleral icteru s. No oral lesion. No drainage from the nares. Eyes: Lids and conjunctivae are within normal limi ts. Pupils are equal and round bilaterally. NECK: Supple without meningismus. LUNGS: Crackles fi ne bilaterally, good effort. HEART: Regular rate and rhythm, tending to tachycardia. No murmur not ed. Patient does have an aortic valve click. SKIN: Warm and dry to the touch. Mild diaphoresis on his scalp. No other rash or lesion noted. MUSCULOSKELETAL: No other muscle belly tenderness is no michael. No joint enlargement, effusion or arthritis is seen. NEURO: Cranial nerves 2-12 seem to be in tact. Peripheral sensation seems intact in extremities. LABORATORY DATA: The patient's CBC dated 01/06/2017 shows a white blood cell count of 10.97, hemoglo bin of 8.4, hematocrit 25.9, platelet count 195. Differential is left-shifted with 87.6% segmented n eutrophils. Serum chemistry on 01/06/2017 shows sodium of 135, potassium 4.1, chloride 100, bicarbon ate 27, BUN of 26, creatinine 1.1. Joint fluid dated 01/04/2017 shows 174,000 white blood cells, 0 r ed blood cells, 91% segmented neutrophils, synovial crystals positive for numerous extra and intracel lular calcium pyrophosphate crystals. Influenza A and B PCR was negative on 01/05/2017. MICROBIOLOGIC DATA: The patient has blood cultures dated 01/04/2017 which are pending. The patient has elbow and shoulder aspirates dated 01/04/2017, gram stains are positive for polymorphonuclear whi te cells but no organisms. All cultures are no growth to date. ASSESSMENT: Pseudogout in left shoulder and elbow. Positive intracellular calcium pyrophosphate cry stals are diagnostic. It is possible these could be secondarily infected. I think given the questio ns revolving around elevated white count and abnormal chest imaging, the vancomycin and Zosyn should continue empirically until this gets sorted out. Rising troponins may indicate some cardiac event. He is going for cardiac cath to delineate whether the bypasses are intact, etc. It is possible that the chest x-ray fullness bilaterally may be flash pulmonary edema from tissue secondary to myocardial infarction. Meanwhile, we will continue the vancomycin and Zosyn empirically. PLAN: 1. Continue both vancomycin and Zosyn. 2. Follow results of cardiac cath, as well as followup blood cultures and joint fluid cultures. /[id number]/MODL
[2017-01-07] MEDS: VANCOMYCIN 750 MG in D5W 150 ML IV SCH ×2 (00:32→11:38)
[2017-01-07 06:19] LABS: ANION GAP 9 mEq/L (8-16); CALCIUM 8.2 mg/dL (8.5-10.4); CARBON DIOXIDE 30 mEq/l (22-31); CHLORIDE 96 mEq/L (97-110); CREATININE 1.4 mg/dL (0.7-1.3); GLOMERULAR FILTRATION RATE 50; GLUCOSE 270 mg/dL (70-100); MAGNESIUM 1.7 mg/dL (1.6-2.3); SODIUM 135 mEq/L (134-144)
[2017-01-07 06:26] LABS: INR 1.3 (0.83-1.16); PROTIME(PATIENT) 16.2 SEC (12.0-15.0)
[2017-01-07 06:57] LABS: % IMMATURE GRANULYOCYTES 0.4 % (0.0-1.1); ABSOLUTE IMMATURE GRANULOCYTES 0.03 10^3/uL (0.00-0.10); ADD DIFF? NO; ADD MORPH? NO; ADD SCAN? NO; ATYPICAL LYMPHOCYTE FLAG 0 (0-99); FRAGMENT RBC FLAG 10 (0-99); HEMATOCRIT 21.8 % (40.0-51.0); HEMOGLOBIN 7.1 g/dL (13.7-17.5); LEFT SHIFT FLG 10 (0-99); LIPEMIA HEMOLYSIS FLAG 80 (0-99); MEAN CELL HEMOGLOBIN 32.1 pg (27.9-34.1); MEAN CELL HEMOGLOBIN CONCENTR. 32.6 g/dL (32.4-36.7); MEAN CELL VOLUME 98.6 fL (81.5-99.8); MEAN PLATELET VOLUME 9.7 fL (8.7-11.7); PLATELET CLUMPS FLAG 10 (0-99); PLATELET COUNT 206 10^3/uL (150-400); RED BLOOD CELL COUNT 2.21 10^6/uL (4.40-6.38); RED CELL DISTRIBUTION WIDTH 14.4 % (11.5-15.2)
[2017-01-07] MEDS: PIPERACILLIN/TAZO 3.375 GM/DEX 50 ML IV SCH ×2 (07:23→11:38)
[2017-01-07] MEDS ORDERED: MAGNESIUM SULF 1 GM/DEXTROSE 100 ML IV ONE (07:40)
[2017-01-07 08:15] LABS: GLUCOSE 369 mg/dL (70-100)
--- NOTE | 2017-01-07 08:17 | SOAPPROG ---
SOAP Progress Note Assessment/Plan: Assessment/Plan: Assessment/Plan: Septic Left shoulder and elbow s/p L shoulder I&D, synovectomy and L elbow I&D, LBR performed by Dr. Erwin on 01/04/2017, POD#3 - Continue pain management, transition to PO meds as tolerated - OK to d/c madrigal today as tolerated as soon as possible - Continue SCDs and TEDs for VTE mechanical prophylaxis - Chemoprophylaxis per medicine/cardiology - Cont PT/OT, may progress to WBAT on his LUE with sling PRN, begin ROM as tolerated of shoulder and elbow w/ PT/OT - Drains removed today w/ no significant output overnight, dressing changed - Continue antibiotics with vancomycin and zosyn, ID consulted, follow cultures 01/07/17 08:18 01/07/17 08:46 01/07/17 10:10 01/07/17 10:12 Subjective: Pt seen at bedside today. No new complaints of significant pain overnight, however, does note some mild discomfort in his left shoulder>left elbow. Pt denies any current wheeler, dizziness, sob, cp, abd pain, f/c/n/v/d, abd pain or post calf pain bilaterally. He notes no n/t in his extremities. He states he is tolerating his diet and medications well. He has no additional concerns or complaints at this time. Objective: Vital Signs Temp Pulse Resp BP Pulse Ox 37.1 C 85 22 H 115/62 92 01/07/17 06:00 01/07/17 07:00 01/07/17 07:00 01/07/17 07:00 01/07/17 07:00 Microbiology 01/04/17 19:55 Gram Stain - Final Elbow - Tissue 01/04/17 19:55 Gram Stain - Final Elbow - Aspirate 01/04/17 20:23 Gram Stain - Final Shoulder - Swab 01/04/17 19:55 Gram Stain - Final Elbow - Eswab 01/04/17 17:52 Gram Stain - Final Elbow - Aspirate 01/04/17 17:45 Gram Stain - Final Shoulder - Aspirate 01/04/17 20:23 Gram Stain - Final Shoulder - Tissue Laboratory Results 01/07/17 04:50 01/07/17 07:56 01/06/17 01/07/17 01/08/17 05:59 05:59 05:59 Intake Total 3481 2260 Output Total 6330 3750 Balance -2849 -1490 PT 16.2 SEC (12.0-15.0) H D 01/07/17 04:50 INR 1.30 (0.83-1.16) H 01/07/17 04:50 Pt seen at bedside. A&Ox3, appropriate mood and affect, NAD, VSS. Pleasant and cooperative with exam. Exam of LUE reveals intact dressings, which are dry. These are removed revealing intact sutures and well healing surgical incision sites at both the elbow and shoulder w/out significant erythema, discharge, calor or induration. BAUDILIO drains are intact, and w/out signs of recent collection. Drains are removed, steri-strips applied, dressings changed. Upper arm compartments are supple, forearm compartments are supple. Pt has some mild swelling present in the post forearm and in the fingers. Pt moves his wrist/hand/digits 1-5 well, and is able to form a composite fist. Radial and ulnar pulses are intact and equal compared bilaterally. Pt intact to light touch sensation distally in the LUE. Post calves are NTTP, no palpable vascular cords, negative Gerard's bilat. DNVI BUE/BLE. ICD10 Worksheet Patient Problems: Problems Problem Status Onset Hypotension Acute Left arm pain Acute Sepsis affecting skin Acute
[2017-01-07] MEDS: INSULIN LISPRO 100 UNIT/1 ML VIAL HIGH SC SCH ×3 (08:27→19:01)
[2017-01-07] MEDS ORDERED: LORazepam 2 MG/ML INJ IVP PRN (08:34)
[2017-01-07] MEDS: ASPIRIN 81 MG CHEWABLE TAB PO SCH (08:36)
[2017-01-07] MEDS: ATORVASTATIN CALCIUM 40 MG TAB PO SCH (08:37)
[2017-01-07] MEDS: FAMOTIDINE 20 MG TAB PO SCH ×2 (08:38→21:00)
[2017-01-07] MEDS: METOPROLOL TARTRATE 50 MG TAB PO SCH ×2 (08:38→20:58)
[2017-01-07] MEDS: oxyCODONE IR 5 MG TAB PO PRN (08:41)
[2017-01-07] MEDS: ACETAMINOPHEN 325 MG TAB PO PRN (08:42)
[2017-01-07] MEDS: CLOPIDOGREL BISULFATE 75 MG TAB PO SCH (09:00)
[2017-01-07] MEDS: COLCHICINE 0.6 MG CAP/TAB PO SCH ×2 (09:00→20:58)
[2017-01-07] MEDS: predniSONE 20 MG TAB PO SCH (09:00)
[2017-01-07] MEDS ORDERED: ESMOLOL HCL 100 MG/10 ML VIAL IV ONE (10:29)
--- NOTE | 2017-01-07 10:30 | SOAPPROG ---
HERO Progress Note Assessment/Plan: Assessment:1.cad...patent koko ,ramos.and mom stent ...stable lvef....pt has diuresed well and is now probably "dry"...no evidence of acute OH..sinus tachycardia may be more physiologic with anemia and dehydration... 2. [facility]..[facility]...no veggies noted on avr,tv or mv....(mild to mod MR)..ok to restart coumadin if no further surgical needs anticipated Plan:1. as ordered 01/07/17 10:24 Subjective: pt doing well post cath..reviewed findings with pt and Objective: Vital Signs Temp Pulse Resp BP Pulse Ox 36.9 C 109 H 20 103/47 L 91 L 01/07/17 08:00 01/07/17 09:00 01/07/17 09:00 01/07/17 09:00 01/07/17 09:00 Microbiology 01/04/17 19:55 Gram Stain - Final Elbow - Tissue 01/04/17 19:55 Gram Stain - Final Elbow - Aspirate 01/04/17 20:23 Gram Stain - Final Shoulder - Swab 01/04/17 19:55 Gram Stain - Final Elbow - Eswab 01/04/17 17:52 Gram Stain - Final Elbow - Aspirate 01/04/17 17:45 Gram Stain - Final Shoulder - Aspirate 01/04/17 20:23 Gram Stain - Final Shoulder - Tissue Laboratory Results 01/07/17 04:50 01/07/17 07:56 01/06/17 01/07/17 01/08/17 05:59 05:59 05:59 Intake Total 3481 2260 Output Total 6330 3750 Balance -2849 -1490 PT 16.2 SEC (12.0-15.0) H D 01/07/17 04:50 INR 1.30 (0.83-1.16) H 01/07/17 04:50 Physical Exam - Physical Exam Respiratory: rales Cardiac/Chest: regular rate, rhythm, No edema, No JVD Peripheral Pulses: 2+: femoral (R) (no hematoma) ICD10 Worksheet Patient Problems: Problems Problem Status Onset Hypotension Acute Left arm pain Acute Sepsis affecting skin Acute
[2017-01-07] MEDS: HEPARIN/DEXTROSE 500 ML IV SCH (11:23)
--- NOTE | 2017-01-07 11:55 | PDINTPN ---
Labor Relations Manager Progress Note Assessment/Plan: Assessment/Plan: * Pseudogout * CAD-H/O stents, CABG * CHF-elevated BMP -give another dose of lasix today -ANA today * Resp failure-back on 4L O2 after diures * Diffuse pulmonary infiltrates-must consider ILD -check HRCT chest * DM * HTN * VTE proph Subjective: Comfortable Objective: Vital Signs Temp Pulse Resp BP Pulse Ox 36.9 C 95 15 108/51 L 92 01/07/17 08:00 01/07/17 10:00 01/07/17 10:00 01/07/17 10:00 01/07/17 10:00 Microbiology 01/04/17 20:23 Gram Stain - Final Shoulder - Tissue 01/04/17 19:55 Gram Stain - Final Elbow - Tissue 01/04/17 19:55 Gram Stain - Final Elbow - Aspirate 01/04/17 20:23 Gram Stain - Final Shoulder - Swab 01/04/17 19:55 Gram Stain - Final Elbow - Eswab 01/04/17 17:52 Gram Stain - Final Elbow - Aspirate 01/04/17 17:45 Gram Stain - Final Shoulder - Aspirate Laboratory Results 01/07/17 04:50 01/06/17 01/07/17 01/08/17 05:59 05:59 05:59 Intake Total 3481 2260 Output Total 6330 3750 Balance -2849 -1490 PT 16.2 SEC (12.0-15.0) H D 01/07/17 04:50 INR 1.30 (0.83-1.16) H 01/07/17 04:50 Physical Exam - Physical Exam General Appearance: WD/WN, alert, no apparent distress EENT: PERRL/EOMI, normal ENT inspection, pharynx normal, TMs normal Neck: non-tender, full range of motion, supple, normal inspection Respiratory: crackles (few), No respiratory distress, No stridor, No wheezing Cardiac/Chest: normal peripheral pulses, regular rate, rhythm, systolic murmur Peripheral Pulses: 2+: carotid (R), carotid (L), femoral (R), femoral (L), dorsalis-pedis (R), dorsalis-pedis (L) Abdomen: normal bowel sounds, non-tender, soft Male Genitalia: deferred Rectal: deferred Skin: normal color, warm/dry Extremities: normal range of motion, non-tender, normal inspection, normal capillary refill Neuro/Psych: no motor/sensory deficits, alert, normal mood/affect, oriented x 3 ICD10 Worksheet Patient Problems: Problems Problem Status Onset Hypotension Acute Left arm pain Acute Sepsis affecting skin Acute
[2017-01-07 12:07] LABS: GLUCOSE 384 mg/dL (70-100); MAGNESIUM 2.3 mg/dL (1.6-2.3)
[2017-01-07] MEDS ORDERED: POLYETHYLENE GLYCOL 3350 17 GM PKT PO PRN (13:19)
[2017-01-07] MEDS ORDERED: BISACODYL 10 MG SUPP PR PRN (13:19)
[2017-01-07] MEDS ORDERED: LACTULOSE 20 GM/30 ML UDCUP PO PRN (13:19)
[2017-01-07] MEDS ORDERED: MAGNESIUM HYDROXIDE 30 ML UDCUP PO PRN (13:19)
--- NOTE | 2017-01-07 14:26 | PCMIDPN ---
Assessment/Plan: #Pseudogout of left shoulder and elbow with some underlying concern of super infection with degree of inflammation in joint fluid. To date cultures from are NGTD. Patient with mild leukocytosis on admission as well as a CRP in the 200s. These could be attributable to other medical conditions and pseudogout, respectively. suspect this is pseudogout alone. -- continue antibiotic coverage until cultures are negative at 5 to 7 days -- narrow antibiotics to ceftriaxone 2 g IV daily as patient has minimal risk for MRSA and more resistant gram-negative abril #Increasing creatinine, multifactorial with vancomycin, Zosyn and cardiac issues -- DC vancomycin and Zosyn to take them out of the variable # diffuse pulmonary infiltrates, noted pulmonary workup medications, antibiotics# 3 Zosyn 3.375 IV Q 6 Vancomycin 750 mg IV Q 12 microbiology 01/04 Aspirate cultures from shoulder and elbow are no growth today 01/04 surgical cultures from shoulder and elbow including standard bacterial are NGTD, AFB smears are negative Subjective: patient reports abdominal distention and constipation. Reports pain is relatively well controlled Objective: Vital Signs Temp Pulse Resp BP Pulse Ox 36.6 C 90 15 99/56 L 93 01/07/17 11:59 01/07/17 11:59 01/07/17 11:59 01/07/17 11:59 01/07/17 11:59 Microbiology 01/04/17 20:23 Gram Stain - Final Shoulder - Swab 01/04/17 19:55 Gram Stain - Final Elbow - Tissue 01/04/17 19:55 Gram Stain - Final Elbow - Eswab 01/04/17 19:55 Gram Stain - Final Elbow - Aspirate 01/04/17 20:23 Gram Stain - Final Shoulder - Tissue 01/04/17 17:52 Gram Stain - Final Elbow - Aspirate 01/04/17 17:45 Gram Stain - Final Shoulder - Aspirate 01/04/17 20:23 Mycobacterial Smear (FLAQUITO) - Final Shoulder - Tissue 01/04/17 20:23 Mycobacterial Smear (FLAQUITO) - Final Shoulder - Aspirate 01/04/17 19:55 Mycobacterial Smear (FLAQUITO) - Final Elbow - Aspirate 01/04/17 19:55 Mycobacterial Smear (FLAQUITO) - Final Elbow - Tissue Laboratory Results 01/07/17 04:50 01/07/17 11:25 01/06/17 01/07/17 01/08/17 05:59 05:59 05:59 Intake Total 3481 2260 Output Total 6330 3750 275 Balance -2849 -1490 -275 ESR 50 MM/HR (0-20) H 01/04/17 11:40 C-Reactive Protein 224.8 mg/L (<10.0) H 01/04/17 11:40 - Physical Exam General Appearance: alert, no apparent distress EENT: pale conjunctiva, poor dentition, No scleral icterus Respiratory: lungs clear Cardiac/Chest: regular rate, rhythm Extremities: other ( dressings in place left elbow and left shoulder. Good capillary refill left hand, good arterial pulses, mild swelling of the left hand ) Abdomen: non-tender, soft, distended ( slight) Skin: pallor, No rash Neuro/Psych: alert, normal mood/affect, oriented x 3 ICD10 Worksheet Patient Problems: Problems Problem Status Onset Hypotension Acute Left arm pain Acute Sepsis affecting skin Acute
[2017-01-07] MEDS: cefTRIAXone 2 GM in D5W 50 ML IV SCH (14:54)
--- NOTE | 2017-01-07 15:24 | HOSPPROG ---
Hospitalist Progress Note Assessment/Plan: * Pseudogout of shoulder/elbow s/p I&D - CPPD crystals -cultures negative - now on ceftriaxone -start prednisone + colchicine * Severe sepsis vs. SIRS - improved * Non STEMI - troponin 16 -cath - unchanged CAD - no intervention * CAD/CABG/stents -ASA/Plavix, metoprolol, statin * AVR - chronic anticoagulation -IV heparin until INR therapeutic - resume warfarin * Acute respiratory failure with bilateral pulmonary infiltrates -not improving with diuresis and now appears dry - hold lasix -d/w Dr. Tovar - possible ILD - check High res CT chest * Acute systolic CHF exacerbation - EF 45% * DM II, uncontrolled -home lantus was missed on home med rec -resume lantus 65 units daily * Afib Subjective: no new complaints. Objective: Vital Signs Temp Pulse Resp BP Pulse Ox 36.6 C 90 15 99/56 L 93 01/07/17 11:59 01/07/17 11:59 01/07/17 11:59 01/07/17 11:59 01/07/17 11:59 Microbiology 01/04/17 17:45 Gram Stain - Final Shoulder - Aspirate 01/04/17 20:23 Gram Stain - Final Shoulder - Swab 01/04/17 19:55 Gram Stain - Final Elbow - Tissue 01/04/17 19:55 Gram Stain - Final Elbow - Eswab 01/04/17 19:55 Gram Stain - Final Elbow - Aspirate 01/04/17 20:23 Gram Stain - Final Shoulder - Tissue 01/04/17 17:52 Gram Stain - Final Elbow - Aspirate 01/04/17 20:23 Mycobacterial Smear (FLAQUITO) - Final Shoulder - Tissue 01/04/17 20:23 Mycobacterial Smear (FLAQUITO) - Final Shoulder - Aspirate 01/04/17 19:55 Mycobacterial Smear (FLAQUITO) - Final Elbow - Aspirate 01/04/17 19:55 Mycobacterial Smear (FLAQUITO) - Final Elbow - Tissue Laboratory Results 01/07/17 04:50 01/07/17 11:25 01/06/17 01/07/17 01/08/17 05:59 05:59 05:59 Intake Total 3481 2260 Output Total 6330 3750 275 Balance -2849 -1490 -275 PT 16.2 SEC (12.0-15.0) H D 01/07/17 04:50 INR 1.30 (0.83-1.16) H 01/07/17 04:50 am CXR viewed, my personal interpretation is: persistent bilateral infiltrates , minimal change - Physical Exam Constitutional: no apparent distress, appears nourished, not in pain Cardiovascular: regular rate and rhythym, no murmur, rub, or gallop Respiratory: no respiratory distress, no rales or rhonchi, clear to auscultation Gastrointestinal: normoactive bowel sounds, soft, non-tender abdomen, no palpable masses Skin: no rashes or abrasions, no fluctuance, no induration Neurologic: AAOx3, sensation intact bilaterally Psychiatric: interacting appropriately, not anxious, not encephalopathic, thought process linear ICD10 Worksheet Patient Problems: Problems Problem Status Onset Hypotension Acute Left arm pain Acute Sepsis affecting skin Acute
[2017-01-07] MEDS: WARFARIN SODIUM 5 MG TAB PO SCH (17:58)
[2017-01-07 18:33] LABS: POTASSIUM 4.7 mEq/L (3.5-5.2)
[2017-01-07 20:22] LABS: GLUCOSE 422 mg/dL (70-100)
[2017-01-07] MEDS: HYDROmorphONE/DILAUDID 1 MG/ML SYR IVP PRN (20:57)
[2017-01-07] MEDS: SENNOSIDES/DOCUSATE SODIUM TAB PO SCH (20:58)
[2017-01-07] MEDS: INSULIN GLARGINE 100 UNITS/ML SYRINGE SC SCH (21:55)
[2017-01-07 22:56] LABS: GLUCOSE 426 mg/dL (70-100)
[2017-01-08] MEDS: oxyCODONE IR 5 MG TAB PO PRN ×3 (00:28→23:27)
[2017-01-08] MEDS ORDERED: INSULIN LISPRO 100 UNIT/ML SC ONE (00:30)
[2017-01-08] MEDS: ZOLPIDEM TARTRATE 5 MG TAB PO PRN (00:56)
[2017-01-08] MEDS: HEPARIN/DEXTROSE 500 ML IV SCH (04:01)
[2017-01-08 04:31] LABS: % IMMATURE GRANULYOCYTES 0.4 % (0.0-1.1); ABSOLUTE IMMATURE GRANULOCYTES 0.03 10^3/uL (0.00-0.10); ADD DIFF? NO; ADD MORPH? NO; ADD SCAN? NO; ATYPICAL LYMPHOCYTE FLAG 10 (0-99); FRAGMENT RBC FLAG 0 (0-99); HEMATOCRIT 23.4 % (40.0-51.0); HEMOGLOBIN 8.1 g/dL (13.7-17.5); LEFT SHIFT FLG 10 (0-99); LIPEMIA HEMOLYSIS FLAG 90 (0-99); MEAN CELL HEMOGLOBIN 32.5 pg (27.9-34.1); MEAN CELL HEMOGLOBIN CONCENTR. 34.6 g/dL (32.4-36.7); MEAN PLATELET VOLUME 10.1 fL (8.7-11.7); PLATELET CLUMPS FLAG 0 (0-99); PLATELET COUNT 184 10^3/uL (150-400); RED BLOOD CELL COUNT 2.49 10^6/uL (4.40-6.38); RED CELL DISTRIBUTION WIDTH 14.5 % (11.5-15.2)
[2017-01-08 04:39] LABS: INR 1.19 (0.83-1.16); PROTIME(PATIENT) 15.1 SEC (12.0-15.0)
[2017-01-08 04:57] LABS: ANION GAP 9 mEq/L (8-16); CALCIUM 8.8 mg/dL (8.5-10.4); CARBON DIOXIDE 28 mEq/l (22-31); CHLORIDE 93 mEq/L (97-110); CREATININE 1.3 mg/dL (0.7-1.3); GLOMERULAR FILTRATION RATE 54; GLUCOSE 312 mg/dL (70-100); MAGNESIUM 2.3 mg/dL (1.6-2.3); SODIUM 130 mEq/L (134-144)
--- NOTE | 2017-01-08 08:45 | SOAPPROG ---
SOAP Progress Note Assessment/Plan: Assessment/Plan: Pseudogout of L shoulder and L elbow s/p L shoulder and L elbow I&D POD#4: cultures still show no growth; + intra- and extra- cellular pyrophosphate crystals - Continue pain management with PO medications if tolerated - Continue PT/OT for shoulder and elbow ROM - Reinforce dressings as needed; if increased bleeding from incision can use thrombotic dressing - Continue antibiotics- Ceftriaxone - Continue prednisone and colchicine 01/06/17 07:44 01/06/17 07:47 01/06/17 08:13 01/06/17 09:27 01/08/17 08:40 01/08/17 08:47 01/08/17 09:09 Subjective: Pt states the pain in his left elbow and left shoulder are feeling better; he is starting to move the LUE more. Pt is sleeping well. Per nurse report, there was increased bleeding last night from the incision on his left shoulder, requiring a dressing change, new gown and sheets. Pt denies fever, chills, SOB, chest pain, abdominal pain, numbness, tingling, and calf pain. Objective: Pt is soundly sleeping, and arousable for the exam Vital Signs Temp Pulse Resp BP Pulse Ox 36.9 C 89 16 158/78 H 96 01/08/17 04:00 01/08/17 04:00 01/08/17 04:00 01/08/17 04:00 01/08/17 04:00 Microbiology 01/04/17 19:55 Gram Stain - Final Elbow - Eswab 01/04/17 17:45 Gram Stain - Final Shoulder - Aspirate 01/04/17 20:23 Gram Stain - Final Shoulder - Swab 01/04/17 19:55 Gram Stain - Final Elbow - Tissue 01/04/17 19:55 Gram Stain - Final Elbow - Aspirate 01/04/17 20:23 Gram Stain - Final Shoulder - Tissue 01/04/17 17:52 Gram Stain - Final Elbow - Aspirate 01/04/17 20:23 Mycobacterial Smear (FLAQUITO) - Final Shoulder - Tissue 01/04/17 20:23 Mycobacterial Smear (FLAQUITO) - Final Shoulder - Aspirate 01/04/17 19:55 Mycobacterial Smear (FLAQUITO) - Final Elbow - Aspirate 01/04/17 19:55 Mycobacterial Smear (FLAQUITO) - Final Elbow - Tissue Laboratory Results 01/08/17 04:00 01/08/17 04:00 01/07/17 01/08/17 01/09/17 05:59 05:59 05:59 Intake Total 2260 Output Total 9720 725 Balance -1490 -725 PT 15.1 SEC (12.0-15.0) H 01/08/17 04:00 INR 1.19 (0.83-1.16) H 01/08/17 04:00 Physical Exam - Physical Exam General Appearance: alert, no apparent distress Peripheral Pulses: 1+: dorsalis-pedis (R), dorsalis-pedis (L) Skin: normal color, warm/dry, other (Incision site c/d/i, no surrounding erythema, small amount of blood on gauze) Extremities: normal capillary refill, other (Limited ROM of elbow and shoulder limited by pain and stiffness ), No pedal edema, No calf tenderness, No swelling , No Gerard's sign Neuro/Psych: no motor/sensory deficits, alert, normal mood/affect ICD10 Worksheet Patient Problems: Problems Problem Status Onset Hypotension Acute Left arm pain Acute Sepsis affecting skin Acute
[2017-01-08] MEDS: SENNOSIDES/DOCUSATE SODIUM TAB PO SCH ×2 (09:52→21:01)
[2017-01-08] MEDS: ATORVASTATIN CALCIUM 40 MG TAB PO SCH (09:52)
[2017-01-08] MEDS: METOPROLOL TARTRATE 50 MG TAB PO SCH ×2 (09:52→21:02)
[2017-01-08] MEDS: predniSONE 20 MG TAB PO SCH (09:52)
[2017-01-08] MEDS: INSULIN LISPRO 100 UNIT/1 ML VIAL HIGH SC SCH ×3 (09:53→17:47)
[2017-01-08] MEDS: COLCHICINE 0.6 MG CAP/TAB PO SCH ×2 (09:53→21:01)
[2017-01-08] MEDS: FAMOTIDINE 20 MG TAB PO SCH ×2 (09:53→21:02)
[2017-01-08] MEDS: ASPIRIN 81 MG CHEWABLE TAB PO SCH (09:53)
[2017-01-08] MEDS: CLOPIDOGREL BISULFATE 75 MG TAB PO SCH (09:53)
--- NOTE | 2017-01-08 10:37 | SOAPPROG ---
HERO Progress Note Assessment/Plan: Assessment:1.cad...patent koko ,ramos.and mom stent ...stable lvef....pt has diuresed well and is now probably "dry"...no evidence of acute IA..sinus tachycardia may be more physiologic with anemia and dehydration... 2. vhd..normal function of [facility] AVR...no veggies noted on avr,tv or mv....(mild to mod MR)..ok to restart coumadin if no further surgical needs anticipated Plan:1. as ordered 01/07/17 10:24 Subjective: no cv c/o/...bleeding from shoulder..i think he needs continued anticoagulation due to his cad and [facility] avr..bleeding is less now per rn Objective: Vital Signs Temp Pulse Resp BP Pulse Ox 36.4 C 71 18 122/65 H 99 01/08/17 08:00 01/08/17 08:00 01/08/17 08:00 01/08/17 08:00 01/08/17 08:00 Microbiology 01/04/17 20:23 Gram Stain - Final Shoulder - Tissue 01/04/17 19:55 Gram Stain - Final Elbow - Eswab 01/04/17 17:45 Gram Stain - Final Shoulder - Aspirate 01/04/17 20:23 Gram Stain - Final Shoulder - Swab 01/04/17 19:55 Gram Stain - Final Elbow - Tissue 01/04/17 19:55 Gram Stain - Final Elbow - Aspirate 01/04/17 17:52 Gram Stain - Final Elbow - Aspirate 01/04/17 20:23 Mycobacterial Smear (FLAQUITO) - Final Shoulder - Tissue 01/04/17 20:23 Mycobacterial Smear (FLAQUITO) - Final Shoulder - Aspirate 01/04/17 19:55 Mycobacterial Smear (FLAQUITO) - Final Elbow - Aspirate 01/04/17 19:55 Mycobacterial Smear (FLAQUITO) - Final Elbow - Tissue Laboratory Results 01/08/17 04:00 01/08/17 04:00 01/07/17 01/08/17 01/09/17 05:59 05:59 05:59 Intake Total 2260 Output Total 3750 725 450 Balance -1490 -725 -450 PT 15.1 SEC (12.0-15.0) H 01/08/17 04:00 INR 1.19 (0.83-1.16) H 01/08/17 04:00 Physical Exam - Physical Exam Respiratory: lungs clear Cardiac/Chest: No edema, No JVD ICD10 Worksheet Patient Problems: Problems Problem Status Onset Hypotension Acute Left arm pain Acute Sepsis affecting skin Acute
[2017-01-08] MEDS: cefTRIAXone 2 GM in D5W 50 ML IV SCH (11:39)
--- NOTE | 2017-01-08 12:59 | PDINTPN ---
Equipment Service Lead Progress Note Assessment/Plan: Assessment/Plan: * Pseudogout * CAD-H/O stents, CABG * CHF-elevated BMP -give another dose of lasix today -ANA today * Resp failure-back on 4L O2 after diures * Diffuse pulmonary infiltrates-HRCT more consistent with pulmonary edema. Doubt ILD * DM * HTN * VTE proph Subjective: Comfortable. Breathing easily Objective: Vital Signs Temp Pulse Resp BP Pulse Ox 36.4 C 71 18 122/65 H 99 01/08/17 08:00 01/08/17 08:00 01/08/17 08:00 01/08/17 08:00 01/08/17 08:00 Microbiology 01/04/17 20:23 Gram Stain - Final Shoulder - Tissue 01/04/17 19:55 Gram Stain - Final Elbow - Eswab 01/04/17 17:45 Gram Stain - Final Shoulder - Aspirate 01/04/17 20:23 Gram Stain - Final Shoulder - Swab 01/04/17 19:55 Gram Stain - Final Elbow - Tissue 01/04/17 19:55 Gram Stain - Final Elbow - Aspirate 01/04/17 17:52 Gram Stain - Final Elbow - Aspirate 01/04/17 20:23 Mycobacterial Smear (FLAQUITO) - Final Shoulder - Tissue 01/04/17 20:23 Mycobacterial Smear (FLAQUITO) - Final Shoulder - Aspirate 01/04/17 19:55 Mycobacterial Smear (FLAQUITO) - Final Elbow - Aspirate 01/04/17 19:55 Mycobacterial Smear (FLAQUITO) - Final Elbow - Tissue Laboratory Results 01/08/17 04:00 01/08/17 04:00 01/07/17 01/08/17 01/09/17 05:59 05:59 05:59 Intake Total 2260 Output Total 3750 725 450 Balance -1490 -725 -450 PT 15.1 SEC (12.0-15.0) H 01/08/17 04:00 INR 1.19 (0.83-1.16) H 01/08/17 04:00 Physical Exam - Physical Exam General Appearance: alert, no apparent distress EENT: PERRL/EOMI, normal ENT inspection, pharynx normal, TMs normal Neck: non-tender, full range of motion, supple, normal inspection Respiratory: crackles (few), No respiratory distress, No stridor, No wheezing Cardiac/Chest: normal peripheral pulses, regular rate, rhythm Abdomen: normal bowel sounds, non-tender, soft Male Genitalia: deferred Rectal: deferred ICD10 Worksheet Patient Problems: Problems Problem Status Onset Hypotension Acute Left arm pain Acute Sepsis affecting skin Acute
--- NOTE | 2017-01-08 14:37 | PCMIDPN ---
Assessment/Plan: #Pseudogout of left shoulder and elbow with some underlying concern of super infection with degree of inflammation in joint fluid. To date cultures from are NGTD. Patient with mild leukocytosis on admission as well as a CRP in the 200s. These could be attributable to other medical conditions and pseudogout, respectively. suspect this is pseudogout alone. -- dc antibiotics --call ID for further questions #Increasing creatinine, improved today at 1.3 # diffuse pulmonary infiltrates, noted pulmonary workup medications, antibiotics# 4 ceftriaxone, #2 s/p zosyn, vancomycin microbiology 01/04 Aspirate cultures from shoulder and elbow are no growth today 01/04 surgical cultures from shoulder and elbow including standard bacterial are NGTD, AFB smears are negative Subjective: Having bleeding from his drain site on his left shoulder Objective: Vital Signs Temp Pulse Resp BP Pulse Ox 36.6 C 92 16 120/68 91 L 01/08/17 13:30 01/08/17 13:30 01/08/17 13:30 01/08/17 13:30 01/08/17 13:30 Microbiology 01/04/17 20:23 Gram Stain - Final Shoulder - Tissue 01/04/17 20:23 Gram Stain - Final Shoulder - Swab 01/04/17 19:55 Gram Stain - Final Elbow - Eswab 01/04/17 19:55 Gram Stain - Final Elbow - Aspirate 01/04/17 19:55 Gram Stain - Final Elbow - Tissue 01/04/17 17:52 Gram Stain - Final Elbow - Aspirate 01/04/17 17:45 Gram Stain - Final Shoulder - Aspirate 01/04/17 20:23 Mycobacterial Smear (FLAQUITO) - Final Shoulder - Tissue 01/04/17 20:23 Mycobacterial Smear (FLAQUITO) - Final Shoulder - Aspirate 01/04/17 19:55 Mycobacterial Smear (FLAQUITO) - Final Elbow - Aspirate 01/04/17 19:55 Mycobacterial Smear (FLAQUITO) - Final Elbow - Tissue Laboratory Results 01/08/17 04:00 01/08/17 04:00 01/07/17 01/08/17 01/09/17 05:59 05:59 05:59 Intake Total 2260 Output Total 3750 725 1250 Balance -1490 -725 -1250 ESR 50 MM/HR (0-20) H 01/04/17 11:40 C-Reactive Protein 224.8 mg/L (<10.0) H 01/04/17 11:40 - Physical Exam General Appearance: alert, no apparent distress Respiratory: lungs clear Cardiac/Chest: regular rate, rhythm Extremities: pedal edema, other (Left shoulder without erythema or warmth, obvious bleeding from drain site.) Skin: pallor, No rash Neuro/Psych: alert, normal mood/affect, oriented x 3 ICD10 Worksheet Patient Problems: Problems Problem Status Onset Hypotension Acute Left arm pain Acute Sepsis affecting skin Acute
[2017-01-08] MEDS: HYDROmorphONE/DILAUDID 1 MG/ML SYR IVP PRN (15:18)
[2017-01-08 15:30] LABS: HEMATOCRIT 22.3 % (40.0-51.0); HEMOGLOBIN 7.5 g/dL (13.7-17.5)
[2017-01-08] MEDS ORDERED: FUROSEMIDE 20 MG/2 ML VIAL IVP ONE (17:18)
--- NOTE | 2017-01-08 17:22 | HOSPPROG ---
Hospitalist Progress Note Assessment/Plan: * Pseudogout of shoulder/elbow s/p I&D - CPPD crystals -cultures negative - now on ceftriaxone for possible secondary infection -start prednisone + colchicine * Severe sepsis vs. SIRS - improved * Non STEMI - troponin 16 -cath - unchanged CAD - no intervention * CAD/CABG/stents -ASA/Plavix, metoprolol, statin * AVR - chronic anticoagulation -IV heparin until INR therapeutic - resume warfarin * Acute respiratory failure with bilateral pulmonary infiltrates -high res CT most c/w pulmonary edema -continue diuresis - IV lasix -d/w Dr. 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 Feels pretty good. Lots of bleeding from shoulder Objective: Vital Signs Temp Pulse Resp BP Pulse Ox 36.7 C 83 11 L 138/68 H 93 01/08/17 16:00 01/08/17 16:00 01/08/17 16:00 01/08/17 16:00 01/08/17 16:00 Microbiology 01/04/17 20:23 Gram Stain - Final Shoulder - Tissue 01/04/17 20:23 Mycobacterial Smear (FLAQUITO) - Final Shoulder - Tissue 01/04/17 17:45 Gram Stain - Final Shoulder - Aspirate 01/04/17 20:23 Gram Stain - Final Shoulder - Swab 01/04/17 19:55 Gram Stain - Final Elbow - Eswab 01/04/17 19:55 Gram Stain - Final Elbow - Aspirate 01/04/17 19:55 Gram Stain - Final Elbow - Tissue 01/04/17 17:52 Gram Stain - Final Elbow - Aspirate 01/04/17 20:23 Mycobacterial Smear (FLAQUITO) - Final Shoulder - Aspirate 01/04/17 19:55 Mycobacterial Smear (FLAQUITO) - Final Elbow - Aspirate 01/04/17 19:55 Mycobacterial Smear (FLAQUITO) - Final Elbow - Tissue Laboratory Results 01/08/17 14:40 01/08/17 04:00 01/07/17 01/08/1717 05:59 05:59 05:59 Intake Total 2260 Output Total 8410 725 1250 Balance -1490 -725 -1250 PT 15.1 SEC (12.0-15.0) H 01/08/17 04:00 INR 1.19 (0.83-1.16) H 01/08/17 04:00 CT chest: fleeting pulmonary infiltrates most c/w pulmonary edema - Physical Exam Constitutional: no apparent distress, appears nourished, not in pain Cardiovascular: regular rate and rhythym, no murmur, rub, or gallop Respiratory: no respiratory distress, inspiratory crackles, No expiratory wheeze , No rhonchi Gastrointestinal: normoactive bowel sounds, soft, non-tender abdomen, no palpable masses Skin: no rashes or abrasions, no fluctuance, no induration Neurologic: AAOx3, sensation intact bilaterally Psychiatric: interacting appropriately, not anxious, not encephalopathic, thought process linear ICD10 Worksheet Patient Problems: Problems Problem Status Onset Hypotension Acute Left arm pain Acute Sepsis affecting skin Acute
[2017-01-08] MEDS: WARFARIN SODIUM 7.5 MG TAB PO SCH (17:47)
[2017-01-08 18:50] LABS: POTASSIUM 4.3 mEq/L (3.5-5.2)
[2017-01-08] MEDS: INSULIN GLARGINE 100 UNITS/ML SYRINGE SC SCH (21:02)
[2017-01-08] MEDS ORDERED: ALTEPLASE 2 MG VIAL IVP PRN (22:13)
[2017-01-08] MEDS: TEMAZEPAM 15 MG CAP PO PRN (23:29)
[2017-01-09 03:29] LABS: % IMMATURE GRANULYOCYTES 0.5 % (0.0-1.1); ABSOLUTE IMMATURE GRANULOCYTES 0.04 10^3/uL (0.00-0.10); ADD DIFF? NO; ADD MORPH? YES; ADD SCAN? NO; ATYPICAL LYMPHOCYTE FLAG 10 (0-99); FRAGMENT RBC FLAG 0 (0-99); HEMATOCRIT 20.1 % (40.0-51.0); INR 1.21 (0.83-1.16); LEFT SHIFT FLG 0 (0-99); LIPEMIA HEMOLYSIS FLAG 80 (0-99); MEAN CELL HEMOGLOBIN 32.2 pg (27.9-34.1); MEAN CELL HEMOGLOBIN CONCENTR. 33.3 g/dL (32.4-36.7); MEAN CELL VOLUME 96.6 fL (81.5-99.8); MEAN PLATELET VOLUME 10.2 fL (8.7-11.7); PLATELET CLUMPS FLAG 0 (0-99); PLATELET COUNT 218 10^3/uL (150-400); PROTIME(PATIENT) 15.3 SEC (12.0-15.0); RED BLOOD CELL COUNT 2.08 10^6/uL (4.40-6.38); RED CELL DISTRIBUTION WIDTH 14.4 % (11.5-15.2)
[2017-01-09 03:41] LABS: HEMOGLOBIN 6.7 g/dL (13.7-17.5)
[2017-01-09 04:00] LABS: ANION GAP 6 mEq/L (8-16); CALCIUM 8.4 mg/dL (8.5-10.4); CARBON DIOXIDE 30 mEq/l (22-31); CHLORIDE 99 mEq/L (97-110); CREATININE 1.1 mg/dL (0.7-1.3); GLOMERULAR FILTRATION RATE > 60; GLUCOSE 173 mg/dL (70-100); MAGNESIUM 2.1 mg/dL (1.6-2.3); POTASSIUM 3.9 mEq/L (3.5-5.2); SODIUM 135 mEq/L (134-144)
[2017-01-09 04:26] LABS: LARGE PLATELETS PRESENT; MACROCYTES 1+; PLATELET ESTIMATE ADEQUATE (ADEQ)
[2017-01-09] MEDS: HEPARIN/DEXTROSE 500 ML IV SCH (06:17)
[2017-01-09] MEDS: ATORVASTATIN CALCIUM 40 MG TAB PO SCH (08:15)
[2017-01-09] MEDS: INSULIN LISPRO 100 UNIT/1 ML VIAL HIGH SC SCH ×3 (08:15→17:39)
[2017-01-09] MEDS: FUROSEMIDE 20 MG/2 ML VIAL IVP SCH ×2 (08:15→14:43)
[2017-01-09] MEDS: FAMOTIDINE 20 MG TAB PO SCH ×2 (08:15→20:38)
[2017-01-09] MEDS: predniSONE 20 MG TAB PO SCH (08:15)
[2017-01-09] MEDS: COLCHICINE 0.6 MG CAP/TAB PO SCH ×2 (08:16→20:38)
[2017-01-09] MEDS: METOPROLOL TARTRATE 50 MG TAB PO SCH ×2 (08:16→20:38)
[2017-01-09] MEDS: CLOPIDOGREL BISULFATE 75 MG TAB PO SCH (08:16)
[2017-01-09] MEDS: SENNOSIDES/DOCUSATE SODIUM TAB PO SCH ×2 (08:16→20:37)
--- NOTE | 2017-01-09 08:39 | SOAPPROG ---
HERO Progress Note Assessment/Plan: Assessment:1.cad...patent koko ,ramos.and mom stent ...stable lvef....pt has diuresed well..getting prbc today...no evidence of acute PR..sinus tachycardia may be more physiologic with anemia and dehydration... 2. [facility]..[facility]...no veggies noted on avr,tv or mv....(mild to mod MR)..ok to restart coumadin if no further surgical needs anticipated Plan:1. as ordered..increase acitivity as tolerated by cv standpoint 01/07/17 10:24 01/09/17 08:37 Subjective: pt doing better eating and no cv c/o...apparently no further shoulder bleeding...pt getting prbc's now Objective: Vital Signs Temp Pulse Resp BP Pulse Ox 36.6 C 79 22 H 142/67 H 97 01/09/17 07:43 01/09/17 08:16 01/09/17 07:43 01/09/17 08:16 01/09/17 07:43 Microbiology 01/04/17 20:23 Gram Stain - Final Shoulder - Tissue 01/04/17 20:23 Mycobacterial Smear (FLAQUITO) - Final Shoulder - Tissue 01/04/17 17:45 Gram Stain - Final Shoulder - Aspirate 01/04/17 20:23 Gram Stain - Final Shoulder - Swab 01/04/17 19:55 Gram Stain - Final Elbow - Eswab 01/04/17 19:55 Gram Stain - Final Elbow - Aspirate 01/04/17 19:55 Gram Stain - Final Elbow - Tissue 01/04/17 17:52 Gram Stain - Final Elbow - Aspirate Laboratory Results 01/09/17 03:00 01/09/17 03:00 01/08/17 01/09/17 01/10/17 05:59 05:59 05:59 Intake Total 2597 Output Total 787 1770 Balance -725 -173 PT 15.3 SEC (12.0-15.0) H 01/09/17 03:00 INR 1.21 (0.83-1.16) H 01/09/17 03:00 ICD10 Worksheet Patient Problems: Problems Problem Status Onset Hypotension Acute Left arm pain Acute Sepsis affecting skin Acute
--- NOTE | 2017-01-09 09:58 | SOAPPROG ---
SOAP Progress Note Assessment/Plan: Assessment/Plan: Pseudogout of L shoulder and L elbow s/p L shoulder and L elbow I&D POD#5: cultures still show no growth; + intra- and extra- cellular pyrophosphate crystals - Continue pain management with PO medications if tolerated - Continue PT/OT for shoulder and elbow ROM - Reinforce dressings as needed - Antibiotics discontinued per ID - Continue prednisone and colchicine - Monitor H&H 01/06/17 07:44 01/06/17 07:47 01/06/17 08:13 01/06/17 09:27 01/08/17 08:40 01/08/17 08:47 01/08/17 09:09 01/09/17 09:57 Subjective: Pt states he is feeling well today, pain in the left shoulder and left elbow remain a 3/10. Pt was seen by PT yesterday, and is receiving 1 unit PRBCs today for acute blood loss. Pt denies fever, chills, chest pain, SOB, abdominal pain, nausea, vomiting, calf pain, numbness and tingling. Objective: VSS, afebrile, sitting up on edge of bed Vital Signs Temp Pulse Resp BP Pulse Ox 36.6 C 79 22 H 142/67 H 97 01/09/17 07:43 01/09/17 08:16 01/09/17 07:43 01/09/17 08:16 01/09/17 07:43 Microbiology 01/04/17 20:23 Gram Stain - Final Shoulder - Tissue 01/04/17 20:23 Mycobacterial Smear (FLAQUITO) - Final Shoulder - Tissue 01/04/17 17:45 Gram Stain - Final Shoulder - Aspirate 01/04/17 20:23 Gram Stain - Final Shoulder - Swab 01/04/17 19:55 Gram Stain - Final Elbow - Eswab 01/04/17 19:55 Gram Stain - Final Elbow - Aspirate 01/04/17 19:55 Gram Stain - Final Elbow - Tissue 01/04/17 17:52 Gram Stain - Final Elbow - Aspirate Laboratory Results 01/09/17 03:00 01/09/17 03:00 01/08/17 01/09/17 01/10/17 05:59 05:59 05:59 Intake Total 2597 Output Total 725 2770 Balance -725 -173 PT 15.3 SEC (12.0-15.0) H 01/09/17 03:00 INR 1.21 (0.83-1.16) H 01/09/17 03:00 Physical Exam - Physical Exam General Appearance: alert, no apparent distress Peripheral Pulses: 1+: dorsalis-pedis (R), dorsalis-pedis (L) Skin: normal color, warm/dry, other (Incision site c/d/i; dressings dry) Extremities: normal capillary refill, other (Radial and ulnar pulses 2+; limited left shoulder and left elbow ROM due to pain and stiffness), No pedal edema, No calf tenderness, No swelling, No Gerard's sign Neuro/Psych: no motor/sensory deficits, alert, normal mood/affect ICD10 Worksheet Patient Problems: Problems Problem Status Onset Hypotension Acute Left arm pain Acute Sepsis affecting skin Acute
[2017-01-09] MEDS ORDERED: POTASSIUM CL 10 MEQ TAB PO ONE (10:42)
[2017-01-09 15:06] LABS: HEMATOCRIT 26.4 % (40.0-51.0)
--- NOTE | 2017-01-09 15:06 | HOSPPROG ---
Hospitalist Progress Note Assessment/Plan: * ABL anemia (worsening) with bleeding from surgical site -cont blood transfusion as ordered -monitor h/h -cont heparin gtt per cardiology until inr is therapeutic * Pseudogout of shoulder/elbow s/p I&D - CPPD crystals -cultures negative - now on ceftriaxone for possible secondary infection -cont prednisone + colchicine * Severe sepsis vs. SIRS - improved * Non STEMI - troponin 16 -cath - unchanged CAD - no intervention * CAD/CABG/stents -ASA/Plavix, metoprolol, statin * AVR - chronic anticoagulation -IV heparin until INR therapeutic - resume warfarin * Acute respiratory failure with bilateral pulmonary infiltrates -high res CT most c/w pulmonary edema -continue diuresis - IV lasix -d/w Dr. 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 no chest pain. no sob Objective: Vital Signs Temp Pulse Resp BP Pulse Ox 36.6 C 71 16 117/16 L 94 01/09/17 12:00 01/09/17 12:00 01/09/17 12:00 01/09/17 12:00 01/09/17 12:00 Microbiology 01/04/17 20:23 Gram Stain - Final Shoulder - Tissue 01/04/17 20:23 Mycobacterial Smear (FLAQUITO) - Final Shoulder - Tissue 01/04/17 17:45 Gram Stain - Final Shoulder - Aspirate 01/04/17 20:23 Gram Stain - Final Shoulder - Swab 01/04/17 19:55 Gram Stain - Final Elbow - Eswab 01/04/17 19:55 Gram Stain - Final Elbow - Aspirate 01/04/17 19:55 Gram Stain - Final Elbow - Tissue 01/04/17 17:52 Gram Stain - Final Elbow - Aspirate Laboratory Results 01/09/17 03:00 01/08/17 01/09/17 01/10/17 05:59 05:59 05:59 Intake Total 2597 Output Total 290 2770 575 Balance -725 -173 -575 PT 15.3 SEC (12.0-15.0) H 01/09/17 03:00 INR 1.21 (0.83-1.16) H 01/09/17 03:00 - Physical Exam Constitutional: no apparent distress, appears nourished, not in pain Cardiovascular: regular rate and rhythym, no murmur, rub, or gallop Respiratory: no respiratory distress, no rales or rhonchi, clear to auscultation Gastrointestinal: normoactive bowel sounds, soft, non-tender abdomen, no palpable masses Neurologic: AAOx3, sensation intact bilaterally ICD10 Worksheet Patient Problems: Problems Problem Status Onset Left arm pain Acute Sepsis affecting skin Acute Hypotension Acute
[2017-01-09] MEDS: WARFARIN SODIUM 5 MG TAB PO SCH (16:21)
[2017-01-09 18:05] LABS: POTASSIUM 4.4 mEq/L (3.5-5.2)
[2017-01-09] MEDS: GUAIFENESIN/DM 10 ML UDCUP PO PRN (20:37)
[2017-01-09] MEDS: INSULIN GLARGINE 100 UNITS/ML SYRINGE SC SCH (20:37)
[2017-01-09] MEDS: oxyCODONE IR 5 MG TAB PO PRN (20:38)
[2017-01-09] MEDS: TEMAZEPAM 15 MG CAP PO PRN (20:39)
[2017-01-09] MEDS: ZOLPIDEM TARTRATE 5 MG TAB PO PRN (23:19)
[2017-01-10 07:34] LABS: POTASSIUM 3.7 mEq/L (3.5-5.2)
[2017-01-10 08:00] LABS: INR 1.28 (0.83-1.16)
[2017-01-10] MEDS ORDERED: POTASSIUM CL 10 MEQ TAB PO ONE (08:07)
[2017-01-10] MEDS: FUROSEMIDE 20 MG/2 ML VIAL IVP SCH ×2 (08:14→15:11)
[2017-01-10] MEDS: INSULIN LISPRO 100 UNIT/1 ML VIAL HIGH SC SCH ×2 (08:14→13:42)
[2017-01-10] MEDS: ATORVASTATIN CALCIUM 40 MG TAB PO SCH (08:15)
[2017-01-10] MEDS: SENNOSIDES/DOCUSATE SODIUM TAB PO SCH (08:15)
[2017-01-10] MEDS: predniSONE 20 MG TAB PO SCH (08:15)
[2017-01-10] MEDS: METOPROLOL TARTRATE 50 MG TAB PO SCH (08:15)
[2017-01-10] MEDS: CLOPIDOGREL BISULFATE 75 MG TAB PO SCH (08:15)
[2017-01-10] MEDS: COLCHICINE 0.6 MG CAP/TAB PO SCH (08:16)
[2017-01-10] MEDS: FAMOTIDINE 20 MG TAB PO SCH (08:16)
--- NOTE | 2017-01-10 08:50 | SOAPPROG ---
SOAP Progress Note Assessment/Plan: Assessment/Plan: Pseudogout of L shoulder and L elbow s/p L shoulder and L elbow I&D POD#6 - Continue pain management with PO medications if tolerated - Continue PT/OT for shoulder and elbow ROM - Reinforce dressings as needed - Continue prednisone and colchicine - Monitor H&H Subjective: Pt states he is doing well and wants to go home. Pain remains a 3/10 in the L shoulder and elbow. Bleeding has resolved. Pt denies fever, chills, chest pain , SOB, abdominal pain, nausea, vomiting, calf pain, numbness and tingling. Objective: VSS, afebrile, pt sitting up in bed. H&H increased after 1 unit PRBCs yesterday Vital Signs Temp Pulse Resp BP Pulse Ox 36.6 C 71 16 138/70 H 95 01/10/17 07:33 01/10/17 08:15 01/10/17 07:33 01/10/17 08:15 01/10/17 07:33 Microbiology 01/04/17 20:23 Gram Stain - Final Shoulder - Tissue 01/04/17 20:23 Gram Stain - Final Shoulder - Swab 01/04/17 19:55 Gram Stain - Final Elbow - Eswab 01/04/17 19:55 Gram Stain - Final Elbow - Aspirate 01/04/17 19:55 Gram Stain - Final Elbow - Tissue 01/04/17 17:52 Gram Stain - Final Elbow - Aspirate 01/04/17 17:45 Gram Stain - Final Shoulder - Aspirate Laboratory Results 01/09/17 14:50 01/10/17 06:00 01/09/17 01/10/17 01/11/17 05:59 05:59 05:59 Intake Total 2597 645 Output Total 2770 1150 Balance -173 -505 PT 16.0 SEC (12.0-15.0) H 01/09/17 23:25 INR 1.28 (0.83-1.16) H 01/09/17 23:25 Physical Exam - Physical Exam General Appearance: alert, no apparent distress Peripheral Pulses: 1+: dorsalis-pedis (R), dorsalis-pedis (L) Skin: normal color, warm/dry, other (Incision sites c/d/i with surrounding ecchymosis) Extremities: non-tender, normal capillary refill, other (Left shoulder and left elbow nonTTP, decreased ROM limited by pain, no effusion), No pedal edema, No calf tenderness, No swelling, No Gerard's sign Neuro/Psych: no motor/sensory deficits, alert, normal mood/affect, oriented x 3 ICD10 Worksheet Patient Problems: Problems Problem Status Onset Hypotension Acute Left arm pain Acute Sepsis affecting skin Acute
[2017-01-10 09:33] LABS: HEMATOCRIT 28.4 % (40.0-51.0); HEMOGLOBIN 9.6 g/dL (13.7-17.5)
--- NOTE | 2017-01-10 09:43 | PDCARPN ---
Cardiology Progress Note Chief Complaint: N/A Assessment/Plan: Assessment/Plan: 1. Mechanical AVR- functioning properly by ANA without endocarditis. Will continue Heparin until his INR is therapeutic. 2. CAD with h/o CABG. Troponin was elevated at 16 in the absence of chest pain. A cath on 01/06 showed patent WOLFE, ALETHA and LCX stent which was placed at [facility] in 2016. No change from prior cath. Continue Lipitor, Metoprolol, and Plavix. 3. Septic shoulder 4. SCHF with EF of 45-50%- Diuresing with IV lasix. Currently on Metoprolol. 5. Acute respiratory failure with pulmonary edema. Continue Lasix. O2 requirement declining. 6. Sinus tachy- resolved 7. Anemia- improved, no further bleeding from shoulder. 01/10/17 12:19 Subjective: Pt denies any CP. SOB is improving. He would like to go home. Objective: Vital Signs (8 Hrs) Temp Pulse Resp BP Pulse Ox 01/10/17 08:15 71 138/70 H 01/10/17 07:33 36.6 C 71 16 138/70 H 95 01/10/17 03:31 36.6 C 68 14 125/71 H 94 Intake/Output (24 Hrs) 01/09/17 01/10/17 01/11/17 05:59 05:59 05:59 Intake Total 2597 645 Output Total 2770 1150 Balance -173 -505 Intake: Oral (ml) 2270 360 IV Infused (ml) 327 285 Heparin/Dextrose 500 ml @ 277 285 As Directed IV CONT MARCO Rx#:[id number] cefTRIAXone 2 gm In D5w 50 50 ml @ 100 mls/hr IV DAILY MARCO Rx#:[id number] Output: Urine (ml) 2770 1150 Toilet 2320 Urinal 450 1150 Other: Intake Quantity Yes Sufficient Number of Voids Toilet 2 tele- NSR Result Diagrams: 01/10/17 09:30 01/10/17 06:00 - Physical Exam Cardiovascular: regular rate and rhythm, other (click consistent with mechanical AVR) Respiratory: other (decreased BS at the bilateral bases) Skin: no edema Neurologic: AAOx3 ICD10 Worksheet Patient Problems: Problems Problem Status Onset Hypotension Acute Left arm pain Acute Sepsis affecting skin Acute
--- NOTE | 2017-01-10 10:24 | PCMIDPN ---
Assessment/Plan: Assessment/Plan: * Polyarticular inflammatory arthropathy: Crystalline analysis positive for CPPD crystals consistent with pseudogout. Now 1 of his shoulder tissue cultures is growing rare colonies of Streptococcus parasanguinous. May represent contamination given no growth from other cultures, negative blood cultures, and negative echocardiogram for endocarditis. Does have poor dentition which would increase the risk of transient bacteremia with oropharyngeal streptococci however. Given clinical improvement and above findings, will observe off antibiotic therapy currently unless other cultures become positive or clinical deterioration occurs. Will arrange for follow-up in our office next week for repeat assessment. Advised to notify our office for fever, chills, worsening joint pain, or drainage from surgical incision. 01/10/17 10:20 01/10/17 10:25 Subjective: Patient feels significantly improved. Eager to go home. Decreased range of motion in left upper extremity but pain significantly less. Objective: Vital Signs Temp Pulse Resp BP Pulse Ox 36.6 C 71 16 138/70 H 95 01/10/17 07:33 01/10/17 08:15 01/10/17 07:33 01/10/17 08:15 01/10/17 07:33 Microbiology 01/04/17 20:23 Gram Stain - Final Shoulder - Tissue 01/04/17 20:23 Gram Stain - Final Shoulder - Swab 01/04/17 19:55 Gram Stain - Final Elbow - Eswab 01/04/17 19:55 Gram Stain - Final Elbow - Aspirate 01/04/17 19:55 Gram Stain - Final Elbow - Tissue 01/04/17 17:52 Gram Stain - Final Elbow - Aspirate 01/04/17 17:45 Gram Stain - Final Shoulder - Aspirate Laboratory Results 01/10/17 09:30 01/10/17 06:00 01/09/17 01/10/17 01/11/17 05:59 05:59 05:59 Intake Total 2597 645 Output Total 2770 1150 Balance -173 -505 ESR 50 MM/HR (0-20) H 01/04/17 11:40 C-Reactive Protein 224.8 mg/L (<10.0) H 01/04/17 11:40 No antibiotic therapy Shoulder tissue culture with growth of rare Streptococcus parasanguinous from anaerobic culture plate All other synovial fluid and tissue cultures are no growth Blood cultures no growth Echo with normal seating of prosthetic aortic valve without vegetation - Physical Exam General Appearance: alert, no apparent distress EENT: poor dentition, No conjunctival petechiae Cardiac/Chest: regular rate, rhythm, systolic murmur (2/6 throughout; crisp valve click noted) Extremities: inflammation (Left shoulder staple line intact with surrounding ecchymosis; mild warmth and tenderness; left elbow incision intact without significant tenderness; no drainage present; range of motion decreased) Skin: No embolic lesions ICD10 Worksheet Patient Problems: Problems Problem Status Onset Hypotension Acute Left arm pain Acute Sepsis affecting skin Acute
[2017-01-10] MEDS: oxyCODONE IR 5 MG TAB PO PRN ×2 (11:11→16:21)
[2017-01-10 12:05] VITALS: BP 137/70; PULSE 76; RESP 18; TEMP 97.8
[2017-01-10 13:04] LABS: INR 1.41 (0.83-1.16); PROTIME(PATIENT) 17.2 SEC (12.0-15.0)
[2017-01-10 14:32] LABS: GLUCOSE 448 mg/dL (70-100)
[2017-01-10] MEDS ORDERED: ENOXAPARIN 80 MG/0.8 ML SYR SC ONE (14:44)
[2017-01-10] MEDS: WARFARIN SODIUM 7.5 MG TAB PO SCH (15:10)
[2017-01-10] MEDS: ACETAMINOPHEN 325 MG TAB PO PRN (16:20)
[2017-01-10 16:22] VITALS: O2SAT 88
--- NOTE | 2017-01-10 17:42 | GDS ---
[f rep st] DISCHARGE SUMMARY DISCHARGE DIAGNOSES: 1. Polyarticular inflammatory arthropathy, most likely due to pseudogout. 2. Acute blood loss anemia. 3. Systemic inflammatory response syndrome, resolved. 4. Non ST-segment elevation myocardial infarction. 5. Coronary artery disease. 6. History of mechanical aortic valve replacement. 7. Resolved acute respiratory failure. 8. Acute systolic congestive heart failure exacerbation. 9. Uncontrolled insulin-dependent diabetes mellitus exacerbated by prednisone. 10. Atrial fibrillation. CONSULTANTS: Dr. Adam Erwin, orthopedic surgery; [facility]; [facility]. HOSPITAL COURSE: 1. Pseudogout: Patient underwent a left shoulder arthrotomy with irrigation, debridement, and drai nage with extensive synovectomy as well as left elbow arthrotomy with I and D and an osteochondral l oose body removal on 01/04/2017. Postoperatively, he his course was complicated by acute blood loss anemia. The patient was continued on therapeutic heparin given his mechanical aortic valve per dir ection of the Cardiology Service. His hemoglobin nadired at 6.7 on 01/09/2017, at which time he was transfused 2 units of packed cells. Over the past 2 days, his H and H have been stable, and he has had no further bleeding. The patient's pseudogout has been treated with prednisone and colchicine. On the day of discharge, the patient's pain is much improved. We will stop his prednisone on disc har since the prednisone has been increasing his blood sugars but will continue his home dose of c olchicine. 2. The patient's blood cultures throughout the stay have all been negative. On the day of discharg e, the culture from the patient's shoulder revealed rare colonies of Streptococcus parasanguis. I chiquita iscussed this result with Dr. Maher, who saw the patient and is recommending that we would defer any further antibiotics since this could be a contaminant. The patient did receive antibiotics during t he stay which may have treated the infection if this was indeed a true bacterial septic arthritis. 3. NSTEMI: The patient peaked his troponin up to 16 on 01/05/2017. Cardiology was consulted who u ltimately took the patient to the slab grinder on 01/06/2017, which did not reveal any new disease. PHYSICAL EXAM: VITAL SIGNS: On day of discharge, blood pressure 137/70, pulse 76, respiratory rate 18, O2 sat 95% on 2 L, temperature afebrile. GENERAL: In no acute distress. HEART: S1, S2. WESLEY GS: Clear. Abdomen: Soft. EXTREMITIES: No edema. PROCEDURES DONE THIS HOSPITAL STAY: I and D and washout of the left shoulder and elbow done by Dr. Erwin on 01/04/2017. DIAGNOSTICS DONE THIS HOSPITAL STAY: Echocardiogram done 01/05/2017. Refer to report. Cardiac cat heterization done 01/06/2017, showed a patent WOLFE to first diagonal and ALETHA to LAD with no change from previous catheterization in 2016 done at [facility]. Refer to report for details. DISCHARGE MEDICATIONS: Please refer to discharge medication reconciliation in [facility] for details. DISCHARGE INSTRUCTIONS: The patient will be discharged from the hospital where he was urged to seek followup with Dr. Maher of Infectious Disease if he develops any fevers, chills, or worsening pain i n his elbow or shoulder. Once again, we have discontinued the prednisone but have continued colchic ine for 5 more days. He should follow up with Dr. Erwin as directed. He should also follow up w [facility]. He will be discharged on Lovenox until his INR is therapeutic. He sh ould have his INR checked on Friday and once again should remain on Lovenox until his INR is greater than 2.5. Greater than 30 minutes were spent on the discharge of this patient. /[id number]/MODL
== END 2017-01-10 17:51 | disposition home health service (06) | DRG 500 ==
LOC: F2N 21:37 → F2W 01-07 16:01
PROVIDERS: ADMIT Internal Medicine; ATTEND Orthopaedic Surgery
PROC: 05H633Z Insertion of Infusion Device into Left Subclavian Vein, Percutaneous Approach (ICD-10-PCS; 2017-01-04)
PROC: 0XB Anatomical Regions, Upper Extremities, Excision (ICD-10-PCS; principal; 2017-01-04 18:43)
PROC: 0R9K00Z Drainage of Left Shoulder Joint with Drainage Device, Open Approach (ICD-10-PCS; principal; 2017-01-04 18:43)
PROC: 0RBK0ZZ Excision of Left Shoulder Joint, Open Approach (ICD-10-PCS; principal; 2017-01-04 18:43)
PROC: 0R9M00Z Drainage of Left Elbow Joint with Drainage Device, Open Approach (ICD-10-PCS; principal; 2017-01-04 18:43)
PROC: 0R9M3ZX Drainage of Left Elbow Joint, Percutaneous Approach, Diagnostic (ICD-10-PCS; 2017-01-04 18:43)
PROC: 0R9K3ZX Drainage of Left Shoulder Joint, Percutaneous Approach, Diagnostic (ICD-10-PCS; 2017-01-04 18:43)
PROC: 30233K1 Transfusion of Nonautologous Frozen Plasma into Peripheral Vein, Percutaneous Approach (ICD-10-PCS; 2017-01-05)
PROC: 30233N1 Transfusion of Nonautologous Red Blood Cells into Peripheral Vein, Percutaneous Approach (ICD-10-PCS; 2017-01-05)
PROC: 4A023N7 Measurement of Cardiac Sampling and Pressure, Left Heart, Percutaneous Approach (ICD-10-PCS; 2017-01-06)
PROC: B2151ZZ Fluoroscopy of Left Heart using Low Osmolar Contrast (ICD-10-PCS; 2017-01-06)
PROC: B246ZZ4 Ultrasonography of Right and Left Heart, Transesophageal (ICD-10-PCS; 2017-01-06)
DX: M10.022 Idiopathic gout, left elbow (principal); M10.012 Idiopathic gout, left shoulder; R65.11 Systemic inflammatory response syndrome (SIRS) of non-infectious origin with acute organ dysfunction; M24.022 Loose body in left elbow; I50.21 Acute systolic (congestive) heart failure; D62 Acute posthemorrhagic anemia; I21.4 Non-ST elevation (NSTEMI) myocardial infarction; J96.00 Acute respiratory failure, unspecified whether with hypoxia or hypercapnia; E11.65 Type 2 diabetes mellitus with hyperglycemia; I25.10 Atherosclerotic heart disease of native coronary artery without angina pectoris; I48.91 Unspecified atrial fibrillation; I10 Essential (primary) hypertension; Z95.2 Presence of prosthetic heart valve; Z87.891 Personal history of nicotine dependence; Z79.01 Long term (current) use of anticoagulants; Z95.1 Presence of aortocoronary bypass graft; Z79.4 Long term (current) use of insulin; Z95.5 Presence of coronary angioplasty implant and graft
CPT/HCPCS: 82947-QW; 85520-90; 97112-GP; 97116-GP; 97162-GP; 97165-GO; G8978-GP-CJ; G8979-GP-CI; G8987-GO-CK; G8988-GO-CI; J0461; J0696; J1170; J1644; J1650; J1815; J2001; J2250; J2370; J2543; J2704; J2997; J3010; J3370; J3430; J3475; P9016; P9017; Q9967

== ENCOUNTER 2017-01-27 20:01 | Inpatient (IN) | payer OTHER, MEDICAID ==
--- NOTE | 2017-01-27 20:14 | CPEKG ---
Heart Rate: 82 RR Interval: 732 P-R Interval: 216 QRSD Interval: 146 QT Interval: 404 QTC Interval: 472 P [place]: 22 QRS [place]: -50 T Wave [place]: 146 EKG Severity - ABNORMAL ECG - EKG Impression: SINUS RHYTHM EKG Impression: PROBABLE LEFT ATRIAL ABNORMALITY EKG Impression: LEFT BUNDLE BRANCH BLOCK Electronically Signed By: Arron Cantrell 27-Jan-2017 21:07:57
--- NOTE | 2017-01-27 20:30 | EDPHY ---
H & P Stated Complaint: CP and SOB since 1800 tonight Time Seen by Provider: 01/27/17 20:14 HPI/ROS: CHIEF COMPLAINT: Chest pain, shortness of breath HISTORY OF PRESENT ILLNESS: The patient presents to the ED with a 1 day history of progressive dyspnea and a 2 hour history of chest pain. The patient has had a very complicated past medical history. He was admitted to the hospital in the middle of December with acute anemia, see years, respiratory failure, CHF and atrial fibrillation. During that time he was evaluated for possible left septic shoulder arthritis requiring I and D. The patient did develop postoperative bleeding requiring transfusion of 2 units of blood. The patient was noted to have no bacteremia throughout his stay in the ED. The patient did have a elevated troponin of reportedly 16 during hospitalization. The patient went to the cardiac catheterization lab on and January 06 which did not demonstrate acute disease. The patient presents the ED complaining of market respiratory distress. He denies fever. According to the patient's , after he was discharged from the hospital he return to [facility] on Friday of last week and was diagnosed with a additional myocardial infarction. He did not undergo an angiogram at that point time. He was discharged to home just 2 days ago. REVIEW OF SYSTEMS: A comprehensive 10 point review of systems is otherwise negative aside from elements mentioned in the history of present illness. Source: Patient, Family Exam Limitations: No limitations - Personal History Current Tetanus/Diphtheria Vaccine: Unsure Current Tetanus Diphtheria and Acellular Pertussis (TDAP): Unsure Tetanus Vaccine Date: <10 years - Medical/Surgical History Hx Asthma: No Hx Chronic Respiratory Disease: No Hx Diabetes: Yes Hx Cardiac Disease: Yes Hx Renal Disease: No Hx Cirrhosis: No Hx Alcoholism: No Hx HIV/AIDS: No Hx Splenectomy or Spleen Trauma: No Other PMH: heart surgery 2003 ([facility] valve), DM, stent placed 2014 - Social History Smoking Status: Never smoked - Physical Exam Exam: General Appearance: Alert, no distress Eyes: Pupils equal and round no pallor or injection ENT, Mouth: Mucous membranes moist Respiratory: Rales noted throughout both lung cantor, decreased breath sounds bilaterally, market tachypnea Cardiovascular: Regular rate and rhythm Gastrointestinal: Abdomen is soft and nontender, no masses, bowel sounds normal Neurological: A&O, normal motor function, normal sensory exam, normal cranial nerves Skin: Surgical incision in shoulder is clean dry and intact, multiple areas of ecchymosis noted Musculoskeletal: Neck is supple nontender Extremities: symmetrical, full range of motion Constitutional: Initial Vital Signs Temperature (C) 36.5 C 01/27/17 20:04 Heart Rate 89 01/27/17 20:04 Respiratory Rate 26 H 01/27/17 20:04 Blood Pressure 106/57 L 01/27/17 20:04 O2 Sat (%) 71 L 01/27/17 20:04 O2 Delivery Mode Bi-Pap O2 (L/minute) 25 Allergies/Adverse Reactions: No Known Allergies Allergy (Verified 01/27/17 20:07) Home Medications: Medication Instructions Recorded AMLODIPINE BESYLATE 5 mg PO DAILY PRN 01/05/17 Aspirin [Aspirin 81mg (*)] 81 mg PO DAILY 01/05/17 Atorvastatin Calcium 80 mg PO DAILY 01/05/17 Clopidogrel Bisulfate [Clopidogrel] 75 mg PO DAILY 01/05/17 Hydrocodone/Acetaminophen [[place] 1 - 2 tab PO Q6H PRN 01/05/17 5/325 (*)] Insulin Lispro [humALOG LISPRO 100 12 - 18 unit SC TIDMEAL PRN 01/05/17 units/ml (*)] Lisinopril 40 mg PO DAILY 01/05/17 Metoprolol Tartrate [Lopressor 50 50 mg PO BID 01/05/17 mg (*)] Ranitidine HCl [Ranitidine HCl 150 150 mg PO BID 01/05/17 mg] Warfarin Sodium [Coumadin 5MG (*)] 5 mg PO SUTUTHSA@16 01/05/17 Warfarin Sodium [Coumadin 7.5MG 7.5 mg PO MWF@16 01/05/17 (*)] metFORMIN HCL [Glucophage 500 mg 1,000 mg PO BIDMEAL 01/05/17 (*)] Insulin Glargine [Lantus 100 60 - 65 units SC HS 01/07/17 UNITS/ML (*)] Acetaminophen [Tylenol 325mg (*)] 650 mg PO Q4HRS PRN #0 tab 01/10/17 Nitroglycerin [Nitrostat 0.4 mg 0.4 mg SL PRN PRN #1 btl 01/10/17 (*)] Sennosides/Docusate Sodium 1 - 2 tab PO BID #0 tab 01/10/17 [Senokot-S] Medical Decision Making - Diagnostics EKG Interpretation: EKG: Complete interpretation has been separately recorded in the [facility] archive. Summary impression: Left bundle branch block, no acute changes from prior EKG Imaging: Chest x-ray AP: Images reviewed by myself, acute congestive heart failure per my interpretation. Procedures: Procedure: Limited transthoracic echocardiogram. A limited transthoracic echocardiogram was performed and interpreted by myself for hypoxemia, recent myocardial infarction. Limited transthoracic echocardiogram: The pericardium was visualized and found to be [negative] for pericardial fluid. Cardiac activity was present. The study was [negative] for pericardial effusion. The study demonstrated grossly normal cardiac activity. ED Course/Re-evaluation: The patient arrives critically ill with a room air oxygen saturation of 58% on room air. The patient was brought into a resuscitation room immediately. Supplemental oxygen was applied via face mask. This corrected the patient's hypoxemia to 91%. A stat x-ray was ordered which demonstrates obvious congestive heart failure. Initial EKG demonstrates a chronic left bundle branch block without acute changes. The patient has been placed on BiPAP in the setting of his congestive heart failure. An I-STAT was obtained which demonstrates a hematocrit of 37 and a creatinine of 0.9. Patient was placed on BiPAP with marked improvement of his hypoxemia and tachypnea. A stat echocardiogram was obtained. Consultation was made with Dr. Javier Richards from the hospitalist service at 9:00 p.m.. Patient will require admission to the hospital in the setting of his acute congestive heart failure. Initial ABG is reassuring. The patient's troponin is come back at 0.12. ProBNP level is elevated at 5000. Patient reassessed at 9:15 p.m.: Currently feeling better on BiPAP, denies acute chest pain The patient did has had a negative recent coronary angiogram. At this point time I will defer to the hospitalist for medical management and Cardiology consultation as they see fit. Differential Diagnosis: Differential diagnosis considered includes myocardial infarction, congestive heart failure, pneumonia, critical anemia, renal failure, valvular heart disease , pericardial effusion Critical Care Time: Critical care time exclusive of procedures and exclusive of the PA's time was 65 minutes, performed by myself, Arron Cantrell MD. - Data Points Laboratory Results: Laboratory Results 01/27/17 20:25 01/27/17 20:25 0301/27/17 01/27/17 20:25 20:25 20:25 WBC RBC Hgb POC Hgb Hct POC Hct MCV MCH MCHC RDW Plt Count MPV Neut % (Auto) Lymph % (Auto) Owen % (Auto) Eos % (Auto) Baso % (Auto) Nucleat RBC Rel Count Absolute Neuts (auto) Absolute Lymphs (auto) Absolute Monos (auto) Absolute Eos (auto) Absolute Basos (auto) Absolute Nucleated RBC Immature Gran % Immature Gran # PT 35.5 SEC H SEC (12.0-15.0) INR 3.48 H (0.83-1.16) APTT 40.7 SEC H SEC (23.0-38.0) Puncture Site LEFT RADIAL Patient Temperature 36.5 DEGREES DEGREES pCO2 32 mmHg L mmHg (34-38) pO2 61 mmHg L mmHg (65-75) Total CO2 23 mEq/L mEq/L (23-27) ABG pH 7.45 (7.35-7.45) ABG O2 Saturation 91 % L % (92-95) ABG Base Excess -1.6 mEq/L mEq/L (-2.5-2.5) ABG Lactic Acid 3.1 mmol/L H mmol/L (0.5-1.6) POC Sodium Sodium Pending POC Potassium Potassium 5.7 mEq/L H mEq/L (3.5-5.2) POC Chloride Chloride 84 mEq/L L mEq/L (97-110) Carbon Dioxide 24 mEq/l mEq/l (22-31) Bicarbonate 22 mEq/L mEq/L (22-26) Anion Gap 11 mEq/L mEq/L (8-16) POC BUN BUN 29 mg/dL H mg/dL (7-23) Creatinine 0.9 mg/dL mg/dL (0.7-1.3) POC Creatinine Estimated GFR > 60 Glucose 213 mg/dL H mg/dL (70-100) POC Glucose Calcium 9.0 mg/dL mg/dL (8.5-10.4) Troponin I 0.137 ng/mL H ng/mL (0-0.034) NT-Pro-B Natriuret Pep 5320 pg/mL H pg/mL (0-125) 01/27/17 01/27/17 20:25 20:21 WBC 12.81 10^3/uL H 10^3/uL (3.80-9.50) RBC 3.57 10^6/uL L 10^6/uL (4.40-6.38) Hgb 11.2 g/dL L g/dL (13.7-17.5) POC Hgb 12.6 gm/dL L gm/dL (14.5-17.3) Hct 33.2 % L % (40.0-51.0) POC Hct 37 % L % (42.8-50.6) MCV 93.0 fL fL (81.5-99.8) MCH 31.4 pg pg (27.9-34.1) MCHC 33.7 g/dL g/dL (32.4-36.7) RDW 17.4 % H % (11.5-15.2) Plt Count 324 10^3/uL 10^3/uL (150-400) MPV 9.3 fL fL (8.7-11.7) Neut % (Auto) 84.8 % H % (39.3-74.2) Lymph % (Auto) 5.2 % L % (15.0-45.0) Owen % (Auto) 5.6 % % (4.5-13.0) Eos % (Auto) 3.6 % % (0.6-7.6) Baso % (Auto) 0.4 % % (0.3-1.7) Nucleat RBC Rel Count 0.0 % % (0.0-0.2) Absolute Neuts (auto) 10.86 10^3/uL H 10^3/uL (1.70-6.50) Absolute Lymphs (auto) 0.67 10^3/uL L 10^3/uL (1.00-3.00) Absolute Monos (auto) 0.72 10^3/uL 10^3/uL (0.30-0.80) Absolute Eos (auto) 0.46 10^3/uL H 10^3/uL (0.03-0.40) Absolute Basos (auto) 0.05 10^3/uL 10^3/uL (0.02-0.10) Absolute Nucleated RBC 0.00 10^3/uL 10^3/uL (0-0.01) Immature Gran % 0.4 % % (0.0-1.1) Immature Gran # 0.05 10^3/uL 10^3/uL (0.00-0.10) PT INR APTT Puncture Site Patient Temperature pCO2 pO2 Total CO2 ABG pH ABG O2 Saturation ABG Base Excess ABG Lactic Acid POC Sodium 122 mEq/L L mEq/L (134-144) Sodium POC Potassium 5.4 mEq/L H mEq/L (3.3-5.0) Potassium POC Chloride 85 mEq/L L mEq/L (96-108) Chloride Carbon Dioxide Bicarbonate Anion Gap POC BUN 29 mg/dL H mg/dL (7-23) BUN Creatinine POC Creatinine 0.9 mg/dL mg/dL (0.8-1.5) Estimated GFR Glucose POC Glucose 216 mg/dL H mg/dL (70-100) Calcium Troponin I NT-Pro-B Natriuret Pep Point of Care Test Results: 01/27/17 20:21 POC Sodium 122 L POC Potassium 5.4 H POC Chloride 85 L POC BUN 29 H POC Creatinine 0.9 POC Glucose 216 H Departure - Departure Disposition: [facility] Acute Clinical Impression: Chest pain, Congestive heart failure, Hypoxemia, Hyponatremia Condition: Critical
[2017-01-27 20:31] LABS: BASE EXCESS -1.6 mEq/L (-2.5-2.5); BICARBONATE 22 mEq/L (22-26); MEASURED OXYGEN SATURATION 91 % (92-95); PCO2 32 mmHg (34-38); PO2 61 mmHg (65-75); TCO2 23 mEq/L (23-27)
[2017-01-27 20:38] LABS: % IMMATURE GRANULYOCYTES 0.4 % (0.0-1.1); ABSOLUTE IMMATURE GRANULOCYTES 0.05 10^3/uL (0.00-0.10); ADD DIFF? NO; ADD MORPH? NO; ADD SCAN? NO; ATYPICAL LYMPHOCYTE FLAG 0 (0-99); FRAGMENT RBC FLAG 0 (0-99); HEMATOCRIT 33.2 % (40.0-51.0); HEMOGLOBIN 11.2 g/dL (13.7-17.5); LEFT SHIFT FLG 0 (0-99); LIPEMIA HEMOLYSIS FLAG 80 (0-99); MEAN CELL HEMOGLOBIN 31.4 pg (27.9-34.1); MEAN CELL HEMOGLOBIN CONCENTR. 33.7 g/dL (32.4-36.7); MEAN PLATELET VOLUME 9.3 fL (8.7-11.7); PLATELET CLUMPS FLAG 0 (0-99); PLATELET COUNT 324 10^3/uL (150-400); RED BLOOD CELL COUNT 3.57 10^6/uL (4.40-6.38); RED CELL DISTRIBUTION WIDTH 17.4 % (11.5-15.2)
[2017-01-27 20:47] LABS: INR 3.48 (0.83-1.16); PROTIME(PATIENT) 35.5 SEC (12.0-15.0)
[2017-01-27 20:48] LABS: APTT 40.7 SEC (23.0-38.0)
[2017-01-27 20:54] LABS: ANION GAP 11 mEq/L (8-16); CARBON DIOXIDE 24 mEq/l (22-31); CHLORIDE 84 mEq/L (97-110); CREATININE 0.9 mg/dL (0.7-1.3); GLOMERULAR FILTRATION RATE > 60; GLUCOSE 213 mg/dL (70-100); POTASSIUM 5.7 mEq/L (3.5-5.2)
[2017-01-27 20:58] LABS: SODIUM 119 mEq/L (134-144)
[2017-01-27 21:26] LABS: TROPONIN I 0.137 ng/mL (0-0.034)
[2017-01-27] MEDS ORDERED: NITROGLYCERIN 0.4 MG BTL SL PRN (21:34)
[2017-01-27] MEDS ORDERED: ACETAMINOPHEN 325 MG TAB PO PRN (21:34)
[2017-01-27] MEDS ORDERED: FUROSEMIDE 40 MG/4 ML VIAL IVP ONE (21:39)
--- NOTE | 2017-01-27 22:08 | GHP ---
DATE OF ADMISSION: 01/27/2017 CHIEF COMPLAINT: Shortness of breath. HISTORY OF PRESENT ILLNESS: This is a 71-year-old male discharged from [facility] on 01/10/2017 after he had a prolonged hospital stay for polyarticular inflammatory arthropathies thoug ht to be due to pseudogout. During the hospital stay, he also had a non ST-segment elevation VT. H is troponins peaked to 16 and was taken the cardiac microbiological lab technician on 01/06/2017, where he was not found t o have any significant new stenosis from a prior catheterization done in 2015. An echocardiogram do nh during his last hospital stay revealed an ejection fraction of 45%-50%. Since his discharge at [facility], he was readmitted to [facility] last w [place] and ultimately discharged 2 days ago, where the patient was told he had suffered another heart a ttack. Today, the patient had acute onset of swelling of his abdomen. This was associated with shortness o f breath and some mild chest discomfort that was described as a pressure over the middle of his ches t. He was brought to the emergency department where he was initially found to have a room air oxyge n saturation in the 50s. During the time of my exam, the patient is breathing comfortably on a BiPAP. He denies any chest pa in. He tells me he has been compliant with his home medications. He denies any dietary changes. PAST MEDICAL HISTORY: 1. Coronary artery disease, status post coronary bypass [place] [address] Ernie Ann. 2. Valvular heart disease status post mechanical aortic valve replacement. 3. Type 2 diabetes mellitus. 4. Hypertension. 5. Atrial fibrillation. 6. Recent hospitalization for suspected pseudogout. HOME MEDICATIONS: Were reviewed. Refer to [employer] for details. ALLERGIES: No known drug allergies. SOCIAL HISTORY: He is a former smoker. He denies any alcohol use. He is and lives with hi s . FAMILY HISTORY: Reviewed and noncontributory. REVIEW OF SYSTEMS: Comprehensive 10-point review of systems was done and is negative except for as mentioned in the HPI. PHYSICAL EXAM: VITAL SIGNS: Blood pressure 145/73, pulse of 86, respiratory rate 31, O2 saturation 98% on BiPAP. GENERAL: Ill appearing, in respiratory distress. HEAD: Normocephalic, atraumatic. EYES: PERRLA. Sclerae anicteric. NECK: Supple. No lymphadenopathy. CARDIOVASCULAR: S1-S2 with systolic murm ur. Positive JVD. Trace lower extremity edema. PULMONARY: Diminished breath sounds bilaterally w ith scattered rales. ABDOMEN: Distended. No guarding or rebound tenderness. Normoactive bowel so unds. EXTREMITIES: No clubbing or cyanosis. NEURO: Cranial nerves 2-12 grossly intact. No focal motor or sensory deficits. DIAGNOSTICS: WBC is 12.8, hemoglobin 11.2, hematocrit 33.2, platelets 324, INR 3.48. ABG: PH 7.45 , pCO2 32, PO2 61. Sodium 119, potassium 5.7, chloride 84, BUN 29, creatinine 0.9, glucose 213. Tr oponin 0.137. BNP 5320. EKG, which I visualized and personally interpreted, sinus tachycardia, rat e 100 beats per minute with left bundle branch block. EKG from 01/05/2017 was reviewed, also shows left bundle branch block. Chest x-ray, preliminary read by myself. Radiology read is pending. Saba ws cardiomegaly and bilateral infiltrates with cephalization. ASSESSMENT: This is a 71-year-old male with recent non ST-elevation myocardial infarction 7, with reported repeat hospitalization last week at [facility] presenting with: 1. Acute respiratory failure. 2. Suspected acute systolic heart failure. 3. Elevated troponin. 4. Hypervolemic hyponatremia. 5. Mild hyperkalemia. 6. History of mechanical aortic valve replacement. PLAN: 1. Admit to step-down unit. 2. Continue BiPAP as needed. 3. I dose Lasix for diuretic diuresis with close monitoring of serum sodium and volume status. 4. Trend troponins. Continue warfarin and monitor INR. 5. Consult Cardiology. 6. Monitor blood sugars and treat with correctional insulin as indicated. The patient will be admitted to the hospital under inpatient status. He is quite ill and is high ri sk given his respiratory failure. CODE STATUS: The patient requests to be full code status. /[id number]/MODL
[2017-01-27] MEDS ORDERED: FUROSEMIDE 40 MG/4 ML VIAL ONE (22:29)
[2017-01-28 01:39] LABS: ANION GAP 9 mEq/L (8-16); CALCIUM 8.6 mg/dL (8.5-10.4); CARBON DIOXIDE 26 mEq/l (22-31); CHLORIDE 88 mEq/L (97-110); CREATININE 0.8 mg/dL (0.7-1.3); GLOMERULAR FILTRATION RATE > 60; GLUCOSE 190 mg/dL (70-100); POTASSIUM 4.8 mEq/L (3.5-5.2); SODIUM 123 mEq/L (134-144)
[2017-01-28 02:14] LABS: TROPONIN I 0.135 ng/mL (0-0.034)
[2017-01-28 05:47] LABS: % IMMATURE GRANULYOCYTES 0.4 % (0.0-1.1); ABSOLUTE IMMATURE GRANULOCYTES 0.04 10^3/uL (0.00-0.10); ADD DIFF? NO; ADD MORPH? NO; ADD SCAN? NO; ATYPICAL LYMPHOCYTE FLAG 0 (0-99); FRAGMENT RBC FLAG 0 (0-99); HEMATOCRIT 31.4 % (40.0-51.0); HEMOGLOBIN 10.9 g/dL (13.7-17.5); LEFT SHIFT FLG 0 (0-99); LIPEMIA HEMOLYSIS FLAG 90 (0-99); MEAN CELL HEMOGLOBIN 31.4 pg (27.9-34.1); MEAN CELL HEMOGLOBIN CONCENTR. 34.7 g/dL (32.4-36.7); MEAN CELL VOLUME 90.5 fL (81.5-99.8); MEAN PLATELET VOLUME 9.3 fL (8.7-11.7); PLATELET CLUMPS FLAG 0 (0-99); PLATELET COUNT 275 10^3/uL (150-400); RED BLOOD CELL COUNT 3.47 10^6/uL (4.40-6.38); RED CELL DISTRIBUTION WIDTH 17.2 % (11.5-15.2)
[2017-01-28 06:11] LABS: INR 3.44 (0.83-1.16); PROTIME(PATIENT) 35.2 SEC (12.0-15.0)
[2017-01-28 06:14] LABS: ANION GAP 9 mEq/L (8-16); CALCIUM 8.9 mg/dL (8.5-10.4); CARBON DIOXIDE 27 mEq/l (22-31); CHLORIDE 86 mEq/L (97-110); CREATININE 0.8 mg/dL (0.7-1.3); GLOMERULAR FILTRATION RATE > 60; GLUCOSE 193 mg/dL (70-100); POTASSIUM 5.1 mEq/L (3.5-5.2); SODIUM 122 mEq/L (134-144)
[2017-01-28] MEDS: FAMOTIDINE 20 MG TAB PO SCH ×2 (08:19→20:45)
[2017-01-28] MEDS: SENNOSIDES/DOCUSATE SODIUM TAB PO SCH ×2 (08:20→20:45)
[2017-01-28] MEDS: CLOPIDOGREL BISULFATE 75 MG TAB PO SCH (08:20)
[2017-01-28] MEDS: METOPROLOL TARTRATE 50 MG TAB PO SCH ×2 (08:20→20:45)
[2017-01-28] MEDS: ASPIRIN 81 MG CHEWABLE TAB PO SCH (08:20)
[2017-01-28] MEDS: ATORVASTATIN CALCIUM 40 MG TAB PO SCH (08:20)
[2017-01-28] MEDS: INSULIN LISPRO 100 UNIT/ML SC PRN ×3 (08:27→17:30)
[2017-01-28] MEDS ORDERED: LISINOPRIL 40 MG TAB PO SCH (09:00)
--- NOTE | 2017-01-28 09:22 | HOSPPROG ---
Hospitalist Progress Note Assessment/Plan: #Acutely decompensated CHF: improved sxs with diuresis. Reports compliance with meds, some dietary indiscretions. TTE with EF 40-50%, mild-mod MR, unchanged from prior. Pulm edema and overload on exam. Cont Lasix, ACEI, BB #Acute on chronic hypoxemic resp failure: due to volume overload. No infectious symptoms, afebrile. Oxygen needs less today. #CAD: bypass x 2 with vein graft occlusion (per cath 2011). NSTEMI in Dec with cath showed patent WOLFE to 1st diagonal, ALETHA to LAD. Recent hospitalization at [facility] after sycopal episode; awaiting records. Cont Plavix, ASA, Statin, BB. Telemetry. -appreciate cardiology consultation. No plan for repeat cath since recently performed #Chest pressure: suspect to due volume. Currently pain free. LBBB chronic on EKG. Trop peaked at 0.135 #Hypervolemic hyponatremia: suspect due to edema. Monitor closely with diuresis #Mechanical AVR: INR at goal. Coumadin. #Benign HTN: cont home meds #Uncontrolled DM: sugars >250. On high-dose glargine, likely needs uptitration #Atrial fibrillation: BB, coumadin #Diet: cardiac, fluid restriction #DVT ppx: coumadin #Disp: warrants SDU admission to cont IV diuresis, telemetry Subjective: less SOB and and distention improved Objective: Vital Signs Temp Pulse Resp BP Pulse Ox 36.6 C 88 42 H 128/51 H 90 L 01/28/17 07:47 01/28/17 08:20 01/28/17 07:47 01/28/17 08:20 01/28/17 07:47 Laboratory Results 01/28/17 05:32 01/28/17 05:32 01/27/17 01/28/17 01/29/17 05:59 05:59 05:59 Intake Total 15 Output Total 1695 Balance -1680 PT 35.2 SEC (12.0-15.0) H 01/28/17 05:32 INR 3.44 (0.83-1.16) H 01/28/17 05:32 - Physical Exam Constitutional: no apparent distress, other (sitting up in chair eating breakfast) Eyes: PERRL Ears, Nose, Mouth, Throat: moist mucous membranes Cardiovascular: regular rate and rhythym (mechanical click), JVD (elevated to mandible), edema (+ 2 L>R pitting edema to knees) Respiratory: other (crackles bilateral bases) Gastrointestinal: normoactive bowel sounds, soft, non-tender abdomen Genitourinary: no bladder fullness Skin: warm Musculoskeletal: full muscle strength Neurologic: AAOx3, CN II-XII Intact Psychiatric: interacting appropriately ICD10 Worksheet Patient Problems: Problems Problem Status Onset Chest pain Acute Congestive heart failure Acute Hyponatremia Acute Hypoxemia Acute Hypotension Acute Left arm pain Acute Sepsis affecting skin Acute
[2017-01-28] MEDS: FUROSEMIDE 40 MG/4 ML VIAL IVP SCH ×2 (11:59→15:30)
[2017-01-28 12:15] LABS: GLUCOSE 359 mg/dL (70-100)
--- NOTE | 2017-01-28 13:46 | GCON ---
PULMONARY CRITICAL CARE CONSULTATION. DATE OF CONSULTATION: 01/28/2017 REASON FOR CONSULTATION: Shortness of breath, hypoxemia, congestive heart failure with a history of cardiac disease. HISTORY: The patient is a 71-year-old gentleman who has a history of coronary artery disease. He i s status post coronary artery bypass grafting as well as a history of aortic valve replacement with a mechanical prosthesis. He was last hospitalized at [facility] 3 weeks ago. Cardiac echo a t that time showed old wall motion abnormalities and an ejection fraction of approximately 45%. He was felt to have a non-ST myocardial infarction during that hospitalization. 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 He was released on his usual cardiac medications and has bee n hospitalized about a week ago at [facility] for a possible recurrent [place]. I do not hav e the details of that admission currently. He was discharged 2 days ago and yesterday presented to the emergency department here with shortness of breath and chest tightness. Chest x-ray showed bila teral pulmonary infiltrates. Saturations were by report in the 50s. He was diuresed. He was place d on BiPAP, which improved his breathing. Oxygen saturations improved into the 90s. BNP was elevat ed at over 5000.12. He denies any fevers, chills, or sweats. He has no cough and is not bringing up any mucus. There i s no history of aspiration. When he was last in [facility], cardiac catheterization was done which did not demonstrate ne w acute coronary occlusion. He did not have a repeat catheterization. 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 MEDICATIONS ON ADMISSION: Included warfarin, insulin, metformin, Zantac, metoprolol, lisinopril, No rco, clopidogrel, atorvastatin, aspirin, and amlodipine. PAST SURGICAL HISTORY: Remarkable for coronary artery bypass grafting and aortic valve replacement. When he was last hospitalized here, he had what was felt to be septic arthritis of his shoulder an d elbow. Cultures were negative. He was felt to have pseudogout. SOCIAL HISTORY: The patient is , with a very supportive extended family. Alcohol is denied. He did smoke cigarettes in the past. FAMILY HISTORY: Noncontributory. REVIEW OF SYSTEMS: A 10-point review of systems is negative except as outlined above. PHYSICAL EXAMINATION: GENERAL: Reveals a gentleman who is sitting up in a chair. VITAL SIGNS: He is somewhat tachypneic with a respiratory rate of 30. He is on a non-rebreather mask with saturati ons in the high 90s. Blood pressure is 114/53, heart rate 85 with 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 on the monitor. He is afebrile. HEENT: Unremarkable for lymphadenopathy or thyromegaly. There is no obvious jugular venous distention. Mucous membranes are moist. CHEST: Decreased breath sounds and decreased excur sions bilaterally. Breath sounds are somewhat coarse. There are rales heard bilaterally, both ante riorly as well as posteriorly. There are no significant wheezes, no rhonchi. HEART: Regular in ra te and rhythm. The mechanical valve sounds crisp. A systolic murmur is present. ABDOMEN: Slightl y distended, soft, and nontender. Bowel sounds are present. There is no organomegaly. EXTREMITIES : Remarkable for 1+ edema. DATA REVIEWED: Chest x-ray shows bilateral pulmonary infiltrates, right greater than left. Cardiac silhouette is enlarged. Previous CT scan of the chest and x-rays have shown bilateral waxing and waning pulmonary infiltrate s, small effusions, and septal thickening, most consistent with congestive heart failure. Atypical pneumonia, other inflammatory processes, etc., could not be absolutely excluded by radiographic find ings. LABORATORY: White blood cell count is 11,000, hematocrit 31.4, platelets are 275,000. INR is 3.44. Blood gas on this admission showed a pH of 7.45, pCO2 of 32, and pO2 of 61. [facility]. Sodium is 122, potassium 5.1, chloride 86, CO2 27, BUN 29 with a creatinine of 0 .8. Glucoses have ranged between approximately 200-350. Troponin has peaked at 0.135 and is now ba ck down to 0.120. TSH is high at 15. BNP is 5320. ASSESSMENT: 1. Acute congestive heart failure/pulmonary edema. The patient presents with increased shortness o f breath and hypoxemia, and a chest x-ray again showing bilateral pulmonary infiltrates. He has no infectious symptoms. Findings are most consistent with acute congestive heart failure and pulmonary edema. He has been diuresed and is improving. He is no longer requiring BiPAP. Oxygen requiremen ts, however, do remain high. A complete cardiac echo is pending. Cardiology consult is pending. T roponins are only mildly elevated and of unclear significance. A non-ST myocardial infarction canno t be excluded; however, recent cardiac catheterization during his previous hospitalization showed no acute coronary disease. Diuresis will be continued. 2. Underlying heart disease. Status post coronary artery bypass grafting and aortic valve replacem ent. He is on chronic anticoagulation with therapeutic INR. 3. Hyponatremia. He has been placed on a fluid restriction and is receiving Lasix. Sodiums will b e followed. 4. History of other medical problems as outlined above. PLAN AND RECOMMENDATIONS: The patient will be kept in the intensive care unit. Lasix diuresis will be continued along with his antihypertensive therapy, metoprolol, etc. Antiplatelet therapy will b e maintained. Sodium, laboratory, and INR will all be followed. A formal cardiac echo is pending. Cardiology consultation has been requested. All of the above was discussed with the patient and his family, the hospitalist, and the ICU multidi sciplinary team. One hour of critical care time was spent directly with the patient, including revi ew of previous records. Further plans and recommendations will be made based on his progress over the next 12-24 hours. /[id number]/MODL
--- NOTE | 2017-01-28 15:21 | ECHO ---
[id number] + + [id number] : : [place] [id number] : : [phone] + + Adult Echocardiographic Report + + :Name: AAMIR MONCADA Study Date: 01/27/2017 09:16 PM : : Hospital Admission Number: [id number] : :: 1945 Gender: Male : :Age: 71 yrs Race: HL,PTD,OTH : :Reason For Study: CP, hypoxia : :History: AVR, CABG : + + MMode/2D Measurements \T\ Calculations IVSd: 1.3 cm RVDd: 3.0 cm FS: 12.2 % MV Diam: 2.6 cm LVPWd: 1.3 cm LVIDd: 5.2 cm EDV(Teich): 131.2 ml LVIDs: 4.6 cm ESV(Teich): 96.8 ml EF(Teich): 26.2 % LVOT diam: 1.9 cm LVLd ap4: 9.1 cm SV(MOD-sp4): 59.0 ml EDV(MOD-sp4): 137.0 ml LVOT area: 2.8 [id number] ap4: 7.4 cm ESV(MOD-sp4): 78.0 ml EF(MOD-sp4): 43.1 % Normal Measurement Values: + + :LVIDd (3.5-5.7cm) IVSd (0.6-1.1cm) LVPWd (0.6-1.1cm) Aortic Root (2.0-3.7cm)Left Atrium (1.5-4.0cm): :LV Vol(d) (76-115ml) LV Vol(s) (29-48ml) Ejec Fraction (50-65%)PV Ayden (0.6- 1.2m/s) TV Ayden (0.4-1.0m/s) : :MV E Ayden (0.8-1.0m/s)MV A Ayden (0.3-1.0m/s)LVOT Ayden (0.7-1.2m/s) Asc Ao Ayden ( 0.9-1.8m/s) : + + Doppler Measurements \T\ Calculations MV E max ayden: MV V2 max: Ao V2 max: LV V1 max: 121.0 cm/sec 124.0 cm/sec 148.0 cm/sec 94.7 cm/sec MV A max ayden: MV max P.2 mmHg Ao max PG: LV V1 max P.0 cm/sec MV V2 mean: 8.8 mmHg 3.6 mmHg MV E/A: 1.0 94.9 cm/sec Ao mean PG: LV V1 mean PG: MV dec time: MV mean P.0 mmHg4.0 mmHg 2.0 mmHg 0.13 sec MV V2 VTI: 22.6 cm Ao V2 mean: LV V1 mean: MV area (1 diam): 95.9 cm/sec 61.8 cm/sec 5.3 cm2 Ao V2 VTI: LV V1 VTI: MVA(VTI): 2.4 cm2 25.0 cm 19.0 cm MV Flow area(1diam):GERBER(I,D): 2.2 cm2 GERBER(V,D): 1.8 cm2 5.3 cm2 MR max ayden: MR(RF 1 diam): 8.7 %SV(MV 1 diam): PA V2 max: 436.0 cm/sec 120.0 ml 127.0 cm/sec MR max PG: SV(LVOT): 53.9 ml PA max P.0 mmHg 6.5 mmHg PI end-d ayden: RF(MV,LVOT)(1diam): 132.0 cm/sec 0.55 Left Ventricle The left ventricle is normal in size. There is mild concentric left ventricular hypertrophy. Ejection Fraction = 40-50%. There is Doppler evidence for diastolic dysfunction. Hypokinetic Basal-Mid Inferolateral wall. Right Ventricle The right ventricle is normal size. The right ventricular systolic function is mildly reduced. Atria The left atrial size is normal. Right atrial size is normal. The interatrial septum is intact with no evidence for an atrial septal defect. Mitral Valve The mitral valve leaflets appear thickened, but open well. There is mild mitral annular calcification. There is no mitral valve stenosis. There is mild to moderate mitral regurgitation. Tricuspid Valve The tricuspid valve is normal in structure and function. There is no tricuspid stenosis. There is trace tricuspid regurgitation. Aortic Valve Trace to mild aortic regurgitation. There is a mechanical aortic valve. The prosthetic aortic valve is well-seated. The gradient is normal for this prosthetic aortic valve. Pulmonic Valve The pulmonic valve is normal in structure and function. There is no pulmonic valvular stenosis. Trace pulmonic valvular regurgitation. Great Vessels The aortic root is normal size. Pericardium/Pleural There is a fat pad seen. Conclusion A complete two-dimensional transthoracic echocardiogram was performed (2D, M-mode, Doppler and color flow Doppler). Patient sitting up for duration of exam due to difficulty breathing. The left ventricle is normal in size. There is mild concentric left ventricular hypertrophy. Ejection Fraction = 40-50%. There is Doppler evidence for diastolic dysfunction. The right ventricular systolic function is mildly reduced with mild global hypokinesis. 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 The mitral valve leaflets appear thickened, but open well. There is mild mitral annular calcification. There is mild to moderate mitral regurgitation. There is trace tricuspid regurgitation. There is a mechanical aortic valve. The prosthetic aortic valve is well-seated. The gradient is normal for this prosthetic aortic valve. Trace to mild aortic regurgitation. Trace pulmonic valvular regurgitation. Hypokinetic Basal-Mid Inferolateral wall. Overall unchanged from prior studies. Final Reading Physician: Elias Dos Santos signed on 01/28/2017 03:19 PM Ordering Physician: Arron Cantrell Performed By: Beckie Lopez
[2017-01-28 15:34] LABS: ANION GAP 8 mEq/L (8-16); CALCIUM 8.7 mg/dL (8.5-10.4); CARBON DIOXIDE 29 mEq/l (22-31); CHLORIDE 86 mEq/L (97-110); GLOMERULAR FILTRATION RATE > 60; GLUCOSE 290 mg/dL (70-100); MAGNESIUM 1.6 mg/dL (1.6-2.3); POTASSIUM 4.5 mEq/L (3.5-5.2); SODIUM 123 mEq/L (134-144)
[2017-01-28] MEDS ORDERED: WARFARIN SODIUM 5 MG TAB PO SCH (16:00)
--- NOTE | 2017-01-28 18:41 | GHP ---
DATE OF ADMISSION: 01/27/2017 HISTORY OF PRESENT ILLNESS: The patient is a 71-year-old, male, with an extensive prior ca rdiac history. He has a history of a WOLFE to his LAD in 1988 and a repeat coronary artery bypass gr , as well as aortic valve replacement with a [employer] mechanical prosthesis in 2004. He also had a WOLFE to his distal LAD at that time, as well as vein grafts to the circumflex obtuse marginal, diagonal, and to the right coronary artery. Cardiac catheterization in 2004 documented all 3 of th ose vein grafts to be no longer patent. His ALETHA and WOLFE remained patent at that time. He was hospitalized at [facility] 3 weeks ago for complaints of left shoulder and elbow pain which was ultimately found to be most likely secondary to pseudogout. His cardiac echo reveals old wall motion abnormalities, ejection fraction of 45%, a normally functioning [employer] prosthesis, and a non-ST elevation myocardial infarction during that hospitalization. [facility] and was released on his usual cardiac medications. Last week, he had a recurrence of chest discomfort and weakness where he nearly fell and was taken e mergently via ambulance to [facility] and may have had a recurrent RI at that time. The records for th at are currently unavailable. He was discharged from the hospital 2 days ago and yesterday presente d to the emergency department with complaints of chest discomfort, shortness of breath, and chest ti ghtness. The chest x-ray reveals diffuse bilateral pulmonary infiltrates with a ground-glass appear ance, which is worse than 3 weeks ago, and oxygen saturations were initially noted to be in the 50s. He was placed on BiPAP and diuresis and was only found to have oxygen saturations in the 90s and w ith lower full oxygen requirements. He has not had fever, chills, night sweats, cough or a history of wheezing. When he was last in the hospital, he underwent cardiac catheterization, as well as ANA which revealed normal function of his prosthesis without evidence of mechanical valve prosthesis wi thout evidence of endocarditis. He also underwent a cardiac catheterization which revealed his isaac nary circulation was at least stable. PAST MEDICAL HISTORY: Pertinent for worsening pulmonary infiltrates, most consistent with pulmonary edema, coronary artery bypass grafting and mechanical aortic valve replacement in 2003. As yonatan maciel mentioned, systemic hypertension, chronic anticoagulation because of his mechanical aortic valve , type 2 diabetes, and polyarthritis secondary to pseudogout. MEDICATIONS: Include warfarin, insulin, metformin, Zantac, metoprolol, lisinopril, [place], clopidogr el, atorvastatin, aspirin and amlodipine. PAST SURGICAL HISTORY: His past medical history is remarkable for the bypass and aortic valve repla cement as previously mentioned. He also underwent left circumflex stent implantation under the care of Dr. Chuy Cruz last year. His possible septic arthritis of his shoulder and elbow at the time of his last hospitalization were felt to be most consistent with pseudogout, and cultures were nega tive. SOCIAL HISTORY: Pertinent for the fact that he does not drink or abuse alcohol. He is and has a supportive extended family. REVIEW OF SYSTEMS: His 10-point review of systems is otherwise negative. PHYSICAL EXAMINATION: GENERAL: The patient is sitting up in a chair. He does seem to be somewhat breathless and poorly responsive. NECK: Reveals JVD. HEART: reveals a crisp mechanical click of aortic valve closure. He also has a murmur consistent with mitral regurgitation and a summation S3 gallop. LUNGS: He has diffuse bilateral rales throughout his lungs with decreased breath sounds an d decreased air movement bilaterally. He does not have a wheeze or rhonchi. ABDOMEN: Soft and sli ghtly distended. His bowel sounds are present. EXTREMITIES: There is evidence of 1 to 2+ pitting edema of the lower extremities bilaterally. His chest x-ray revealed bilateral pulmonary infiltrates, right worse than left and increasing pulmo nary infiltrates compared to his admission chest x-ray in December of this year. His blood gas on admission showed a pH of 7.45, pCO2 of 32 and PO2 of 61. Sodium 122, potassium 5.1 , chloride 86. Troponin peaked at 0.135. TSH was elevated at 15 and the BNP was 5320 pg/mL consist ent with heart failure. Acute congestive heart failure, pulmonary edema with acute on chronic systo lic and diastolic heart failure. Echocardiogram today reveals relatively well-preserved ejection fr action at 40% to 50% with basal inferolateral hypokinesis consistent with the findings at the time o f his last admission. Troponins are minimally elevated and of unclear significance in this circumst ance. He certainly has a history of atypical left bundle branch block, and a non-STEMI myocardial i nfarction cannot be excluded. Diuresis is planned. He has hyponatremia and is being placed on fluid restriction and receiving Lasix. His sodiums will be followed. His potassium is also mildly elevated. He has a history of elevated TSH which may ind icate a euthyroid sick syndrome or juwan hypothyroidism which will need to be addressed by the hospi talist. IMPRESSION/PLAN: The patient will be kept in the intensive care unit. We will trend a BNP in the [facility] to check that level. He will be maintained on antiplatelet therapy, as well as full-dose ant icoagulation. It seems to me that his pulmonary infiltrates are out of proportion to the level of c ardiac dysfunction which is present. He does not present like he has an acute infectious process, h owever, so I think it is unlikely that he has pneumonia at the present time, although that certainly is in the differential diagnosis. I have discussed his case in detail with the hospitalist and plan to follow the patient with you. /[id number]/MODL
[2017-01-28] MEDS ORDERED: CANN-EASE 2 GM TUBE TP PRN (19:20)
[2017-01-28] MEDS: HYDROCODONE/APAP 5/325 TAB PO PRN (20:57)
[2017-01-28] MEDS: INSULIN GLARGINE 100 UNITS/ML SYRINGE SC SCH (20:57)
[2017-01-28] MEDS ORDERED: INSULIN GLARGINE 100 UNITS/ML SYRINGE SC SCH (21:00)
[2017-01-29] MEDS ORDERED: oxyCODONE IR 5 MG TAB PO PRN (01:20)
[2017-01-29] MEDS: HYDROCODONE/APAP 5/325 TAB PO PRN ×3 (03:11→17:40)
[2017-01-29 05:18] LABS: HEMATOCRIT 31.4 % (40.0-51.0); HEMOGLOBIN 10.7 g/dL (13.7-17.5); MEAN CELL HEMOGLOBIN 31.4 pg (27.9-34.1); MEAN CELL HEMOGLOBIN CONCENTR. 34.1 g/dL (32.4-36.7); MEAN CELL VOLUME 92.1 fL (81.5-99.8); RED BLOOD CELL COUNT 3.41 10^6/uL (4.40-6.38); RED CELL DISTRIBUTION WIDTH 17.3 % (11.5-15.2)
[2017-01-29 05:27] LABS: ANION GAP 12 mEq/L (8-16); CARBON DIOXIDE 30 mEq/l (22-31); CHLORIDE 87 mEq/L (97-110); CREATININE 1.3 mg/dL (0.7-1.3); GLOMERULAR FILTRATION RATE 54; GLUCOSE 143 mg/dL (70-100); POTASSIUM 4.7 mEq/L (3.5-5.2); SODIUM 129 mEq/L (134-144)
[2017-01-29 05:48] LABS: PROTIME(PATIENT) 48.1 SEC (12.0-15.0)
[2017-01-29 06:32] LABS: INR 5.08 (0.83-1.16)
[2017-01-29] MEDS: INSULIN LISPRO 100 UNIT/ML SC PRN (08:06)
[2017-01-29] MEDS: FUROSEMIDE 40 MG/4 ML VIAL IVP SCH ×2 (08:26→16:08)
[2017-01-29] MEDS: SENNOSIDES/DOCUSATE SODIUM TAB PO SCH ×2 (08:27→21:00)
[2017-01-29] MEDS: METOPROLOL TARTRATE 50 MG TAB PO SCH ×2 (08:27→21:00)
[2017-01-29] MEDS: ATORVASTATIN CALCIUM 40 MG TAB PO SCH (08:27)
[2017-01-29] MEDS: FAMOTIDINE 20 MG TAB PO SCH ×2 (08:27→22:31)
--- NOTE | 2017-01-29 08:37 | CPEKG ---
Heart Rate: 97 RR Interval: 619 P-R Interval: 120 QRSD Interval: 92 QT Interval: 348 QTC Interval: 442 P [place]: 72 QRS [place]: 92 T Wave Fr[place]ham: -62 EKG Severity - ABNORMAL ECG - EKG Impression: SINUS RHYTHM EKG Impression: RIGHT AXIS DEVIATION EKG Impression: NONSPECIFIC T ABNORMALITIES, INFERIOR LEADS EKG Impression: COMPARED WITH JANUARY 27 2017, LBBB NO LONGER PRESENT Electronically Signed By: Lilly Vivar 29-Jan-2017 15:26:24
[2017-01-29] MEDS ORDERED: acetaZOLAMIDE 250 MG TAB PO ONE (10:39)
[2017-01-29] MEDS: ASPIRIN 81 MG CHEWABLE TAB PO SCH (10:55)
[2017-01-29] MEDS: CLOPIDOGREL BISULFATE 75 MG TAB PO SCH (10:56)
[2017-01-29] MEDS: INSULIN LISPRO 100 UNIT/ML CUSTOM SC SCH ×2 (12:32→17:16)
[2017-01-29] MEDS ORDERED: WARFARIN SODIUM 7.5 MG TAB PO SCH (16:00)
--- NOTE | 2017-01-29 17:26 | PDINTPN ---
[facility] Progress Note Assessment/Plan: Assessment: Bilateral pulmonary infiltrates. Etiology is not totally clear. Some of this may be congestive heart failure/related to his underlying heart disease/ systolic and diastolic dysfunction, and fluid overload. However he appears to be relatively euvolemic at this point in time and infiltrates may be inflammatory in nature. Doubt pneumonia. A tissue diagnosis would be nice however may result in him being on the ventilator and we would have to stop anticoagulation/anti-platelet agents. Will check inflammatory markers ( elevated in the past) and consider empiric steroids. Hypoxemia: Secondary to above. Respiratory status has improved be slightly better today: Less short of breath, less tachypneic, on slightly less oxygen, and chest x-ray improved is slightly. History of coronary artery disease and aortic valve replacement. Appears stable. Ejection fraction remains at approximately 45%. Diastolic dysfunction present. Metabolic: Hyponatremia improving. Hyperglycemia, on sliding scale coverage. Anticoagulation: INR high today. Coumadin on hold. Recheck tomorrow. Plan: Continue care in the intensive care unit. Follow x-ray. Repeat blood gas in the a.m.. Check inflammatory markers, serologies related to interstitial disease. Continue diuresis aggressively. Oxygen as needed. Continue fluid restriction, follow sodium. 30 minutes of critical care time spent directly with the patient. Discussed with respiratory, hospitalist, nursing, the ICU multi disciplinary team. Subjective: Feels a little bit better regarding his breathing. However he remains short of breath, on high-flow O2. Has some tightness in the muscles of his back. Objective: Vital Signs Temp Pulse Resp BP Pulse Ox 36.9 C 98 24 H 97/39 L 92 01/29/17 16:00 01/29/17 16:00 01/29/17 16:00 01/29/17 16:00 01/29/17 16:00 Laboratory Results 01/29/17 05:00 01/29/17 05:00 01/28/17 01/29/17 01/30/17 05:59 05:59 05:59 Intake Total 15 1360 400 Output Total 1695 1602 560 Balance -1680 -242 -160 PT 48.1 SEC (12.0-15.0) H D 01/29/17 05:00 INR 5.08 (0.83-1.16) H* 01/29/17 05:00 Laboratory Tests 01/29/17 01/29/17 01/29/17 05:00 05:00 11:15 PT 48.1 H D INR 5.08 H* Sodium 129 L Potassium 4.7 Carbon Dioxide 30 BUN 39 H Creatinine 1.3 Estimated GFR 54 Glucose 143 H Calcium 9.0 NT-Pro-B Natriuret Pep 3380 H CXR: Bilateral infiltrates persist. Slightly better compared to yesterday but overall the pattern is about the same. ICD10 Worksheet Patient Problems: Problems Problem Status Onset Left arm pain Acute Sepsis affecting skin Acute Hypotension Acute Chest pain Acute Congestive heart failure Acute Hypoxemia Acute Hyponatremia Acute
--- NOTE | 2017-01-29 18:56 | HOSPPROG ---
Hospitalist Progress Note Assessment/Plan: Assessment: 71-year-old male presents with acute on chronic hypoxic respiratory failure in the setting of acute systolic CHF exacerbation Plan: # Acute systolic CHF exacerbation: EF 40-45%, hypervolemic on presentation, CXR w/ infiltrates and BNP 5300 - unclear precipitant, has recently been hospitalized for similar presentation - cont lasix, hold ACEi given rising Cr, give one dose of diamox - strict I/O, monitor lytes # Acute on chronic hypoxemic resp failure: Evidenced by SpO2 71% w/ objective tachypnea (RR 42) and symptomatic shortness of breat, due to volume overload and potentially inflammatory lung disease - d/w Dr. Pratt, recommends checking inflammatory markers as these have been elevated in past - if elevated, will consider steroids - bronch would likely require intubation - cont on 20LPM # CAD: Chronic, bypass x 2 with vein graft occlusion (per cath 2011), NSTEMI in Dec 2016 with cath showed patent WOLFE to 1st diagonal, ALETHA to LAD - holding ASA/plavix today w/ INR 5, restart tomorrow - cont statin and bblocker - appreciate cards consult - no further risk strat indicated # Hypervolemic hyponatremia: acute, improving w/ diuresis - repeat level in AM # Mechanical AVR: INR supratherapeutic, hold coumadin today - repeat INR in AM # Chronic HTN: cont home meds # Uncontrolled DM: sugars >250. On high-dose glargine, likely needs uptitration # Atrial fibrillation: BB, coumadin Diet. Cardiac, fluid restriction PPx. On coumadin Code. full Dispo. ADD uncertain, pending clinical stabilization Patient remains high risk for worsening morbidity and/or mortality, critically ill. Subjective: Patient reports he continues to be shortness of breath with activity Objective: Vital Signs Temp Pulse Resp BP Pulse Ox 36.9 C 98 24 H 97/39 L 92 01/29/17 16:00 01/29/17 16:00 01/29/17 16:00 01/29/17 16:00 01/29/17 16:00 Laboratory Results 01/29/17 05:00 01/29/17 05:00 01/28/17 01/29/17 01/30/17 05:59 05:59 05:59 Intake Total 15 1360 400 Output Total 1695 1602 560 Balance -1680 -242 -160 PT 48.1 SEC (12.0-15.0) H D 01/29/17 05:00 INR 5.08 (0.83-1.16) H* 01/29/17 05:00 - Physical Exam Constitutional: no apparent distress, not in pain, chronically ill appearing, No uncomfortable Cardiovascular: systolic murmur (2/6 systolic murmur at the right sternal border with closing click), No irregularly irregular, No tachycardia, No edema Respiratory: inspiratory crackles (Bilateral bases), No reduced air movement, No expiratory wheeze, No bronchial breath sounds Gastrointestinal: normoactive bowel sounds, soft, non-tender abdomen, no palpable masses Neurologic: AAOx3, sensation intact bilaterally, No weakness (Motor 5/5 bilateral lower extremity) Psychiatric: interacting appropriately, not anxious, not encephalopathic, thought process linear ICD10 Worksheet Patient Problems: Problems Problem Status Onset Left arm pain Acute Sepsis affecting skin Acute Hypotension Acute Chest pain Acute Congestive heart failure Acute Hypoxemia Acute Hyponatremia Acute
[2017-01-29 19:54] LABS: COLOR YELLOW; LEUKOCYTE ESTERASE,URINE NEGATIVE (NEGATIVE); NITRITE,URINE NEGATIVE (NEGATIVE)
[2017-01-29] MEDS: INSULIN GLARGINE 100 UNITS/ML SYRINGE SC SCH (22:31)
[2017-01-29] MEDS ORDERED: NS 500 ML IV ONE (23:32)
[2017-01-30] MEDS: HYDROCODONE/APAP 5/325 TAB PO PRN ×2 (00:26→19:09)
[2017-01-30 05:19] LABS: % IMMATURE GRANULYOCYTES 0.5 % (0.0-1.1); ABSOLUTE IMMATURE GRANULOCYTES 0.05 10^3/uL (0.00-0.10); ADD DIFF? NO; ADD MORPH? NO; ADD SCAN? NO; ATYPICAL LYMPHOCYTE FLAG 0 (0-99); FRAGMENT RBC FLAG 0 (0-99); HEMATOCRIT 31.1 % (40.0-51.0); HEMOGLOBIN 10.2 g/dL (13.7-17.5); LEFT SHIFT FLG 0 (0-99); LIPEMIA HEMOLYSIS FLAG 80 (0-99); MEAN CELL HEMOGLOBIN CONCENTR. 32.8 g/dL (32.4-36.7); MEAN CELL VOLUME 94.5 fL (81.5-99.8); MEAN PLATELET VOLUME 9.7 fL (8.7-11.7); PLATELET CLUMPS FLAG 0 (0-99); PLATELET COUNT 250 10^3/uL (150-400); RED BLOOD CELL COUNT 3.29 10^6/uL (4.40-6.38); RED CELL DISTRIBUTION WIDTH 17.2 % (11.5-15.2)
[2017-01-30 05:32] LABS: CALCIUM 8.9 mg/dL (8.5-10.4); CARBON DIOXIDE 28 mEq/l (22-31); CHLORIDE 87 mEq/L (97-110); CREATININE 1.7 mg/dL (0.7-1.3); GLOMERULAR FILTRATION RATE 40; GLUCOSE 174 mg/dL (70-100); SODIUM 125 mEq/L (134-144)
[2017-01-30 05:33] LABS: ANION GAP 10 mEq/L (8-16); POTASSIUM 4.5 mEq/L (3.5-5.2)
[2017-01-30 05:37] LABS: INR 3.79 (0.83-1.16)
[2017-01-30 05:48] LABS: SEDIMENTATION RATE 74 MM/HR (0-20)
[2017-01-30 08:01] LABS: BASE EXCESS -0.4 mEq/L (-2.5-2.5); BICARBONATE 25 mEq/L (22-26); MEASURED OXYGEN SATURATION 95 % (92-95); O2 CONCENTRATIION 100 % (0-100); P/F RATIO 84 RATIO; PCO2 44 mmHg (34-38); PO2 84 mmHg (65-75); TCO2 26 mEq/L (23-27)
[2017-01-30] MEDS: ASPIRIN 81 MG CHEWABLE TAB PO SCH (09:02)
[2017-01-30] MEDS: ATORVASTATIN CALCIUM 40 MG TAB PO SCH (09:02)
[2017-01-30] MEDS: CLOPIDOGREL BISULFATE 75 MG TAB PO SCH (09:03)
[2017-01-30] MEDS: FAMOTIDINE 20 MG TAB PO SCH ×2 (09:04→19:58)
[2017-01-30] MEDS: SENNOSIDES/DOCUSATE SODIUM TAB PO SCH ×2 (09:04→20:05)
[2017-01-30] MEDS ORDERED: NS 500 ML IV ONE (09:07)
[2017-01-30] MEDS: INSULIN LISPRO 100 UNIT/ML CUSTOM SC SCH ×3 (09:18→19:08)
[2017-01-30] MEDS: FUROSEMIDE 40 MG/4 ML VIAL IVP SCH (09:46)
[2017-01-30] MEDS: METOPROLOL TARTRATE 50 MG TAB PO SCH (10:56)
[2017-01-30] MEDS: METOPROLOL TARTRATE 25 MG TAB PO SCH ×2 (12:04→19:54)
--- NOTE | 2017-01-30 12:15 | PDINTPN ---
Recruiting Consultant Progress Note Assessment/Plan: Assessment: Bilateral pulmonary infiltrates. Etiology is not totally clear. Some of this may be congestive heart failure/related to his underlying heart disease/ systolic and diastolic dysfunction, and fluid overload. However he is euvolemic at this point in time and infiltrates persist, likely inflammatory in nature. Doubt pneumonia. I have recommended open lung biopsy. Discussed with Dr. Suggs. Possibly on for tomorrow. Coumadin on hold. Will likely need to reverse INR prior to surgery.. Hypoxemia: Secondary to above. Respiratory status no better, bone on more oxygen, remains quite dyspneic. Chest x-ray without change.. History of coronary artery disease and aortic valve replacement. Appears stable. Ejection fraction remains stable at approximately 45%. Diastolic dysfunction present. Valve functioning well Metabolic: Hyponatremia, sodium slightly down today. On fluid restriction. Hyperglycemia, on sliding scale coverage. Anticoagulation: INR 3.8. Coumadin on hold. Recheck tomorrow. Plan: Continue care in the intensive care unit. Continue present care in high- flow O2, bronchopulmonary therapies. For open lung biopsy tomorrow. Coumadin is being held. We will likely need to reverse INR prior to surgery.. 45 minutes of critical care time spent directly with the patient. Discussed with the patient, his daughter, and his , RT, hospitalist, nursing, Dr. Suggs, the ICU multi disciplinary team. Subjective: Remains short of breath. Up in chair. Little cough, no mucus. Objective: Vital Signs Temp Pulse Resp BP Pulse Ox 36.8 C 96 34 H 113/46 L 88 L 01/30/17 11:55 01/30/17 12:04 01/30/17 11:55 01/30/17 12:04 01/30/17 11:55 Laboratory Results 01/30/17 05:00 01/30/17 05:00 01/29/17 01/30/17 01/31/17 05:59 05:59 05:59 Intake Total 1360 1350 Output Total 1602 810 Balance -242 540 PT 38.0 SEC (12.0-15.0) H D 01/30/17 05:00 INR 3.79 (0.83-1.16) H 01/30/17 05:00 CXR: Bilateral pulmonary infiltrates essentially unchanged. Physical Exam - Physical Exam General Appearance: alert, mild distress, other (In chair, on high-flow O2 by Vapotherm) EENT: PERRL/EOMI, other (Vapotherm cannula in place) Neck: normal inspection (No jugular venous distension) Respiratory: decreased breath sounds, rales (Fine rales bilaterally, anteriorly and posteriorly.) Cardiac/Chest: regular rate, rhythm, systolic murmur Abdomen: normal bowel sounds, non-tender, soft Skin: warm/dry, pallor Extremities: No pedal edema Neuro/Psych: no motor/sensory deficits, No cognition abnormalities ICD10 Worksheet Patient Problems: Problems Problem Status Onset Chest pain Acute Congestive heart failure Acute Hyponatremia Acute Hypoxemia Acute Hypotension Acute Left arm pain Acute Sepsis affecting skin Acute
--- NOTE | 2017-01-30 13:37 | GCON ---
[f rep st] CONSULTATION REFERRING PHYSICIAN: Nate Pratt MD IMPRESSION: 1. Diffuse pulmonary infiltrates with presumed noncardiogenic pulmonary edema versus infiltrated, a utoimmune or infectious etiology. 2. Status post aortic valve replacement with a mechanical valve on Coumadin and Plavix, status post coronary bypass grafting, status post recent myocardial infarctions. 3. Type 2 diabetes mellitus. 4. Hypertension. 5. Atrial fibrillation. 6. History of pseudogout. RECOMMENDATIONS: This gentleman's anticoagulation will be partially reversed with fresh frozen plas ma. He will be taken to the operating room for an attempted thoracoscopic right lung biopsy, if he is able to tolerate single-lumen ventilation. If unable to tolerate that, we will make a small anter ior mini-thoracotomy and do a wedge excision of the lung that way which will be sent fresh to [facility]. The risks of need for prolonged ventilation, air leak and discomfort were reviewed at length w ith the patient's who signed the consents. CHIEF COMPLAINT: A 71-year-old gentleman who has had several recent admissions, most related to ang david and elevated troponins. He was told at an outside hospital had a myocardial infarction. A rece nt cath here revealed no new obstructive disease. PAST MEDICAL HISTORY: As stated. He came in this time with worsening shortness of breath and bilat eral pulmonary infiltrates and, despite diuresis and medical management, he has persistent bilateral infiltrative changes in both lungs with severe shortness of breath with exertion. REVIEW OF SYSTEMS: Were not elicited due the patient's discomfort and request to be left alone to sandra. ALLERGIES: He has no known allergies. MEDICATIONS: Were reviewed. Currently Coumadin is going to be partially reversed and Plavix was he ld. PHYSICAL EXAMINATION: GENERAL: This is a slightly overweight elderly gentleman, sitting in the richie ir with a respiratory rate of 30, O2 saturation 98% on a mask. HEENT: Normocephalic. NECK: Without bruits. HEART: Rates regular with crisp valve tones. Echo reveals good valvular function with EF i n of mid 40s. LUNGS: Diffuse rhonchi. ABDOMEN: Protuberant. Nontender. EXTREMITIES: Pedal pulses are 2+. DIAGNOSTIC STUDIES: Chest x-ray as described. /[id number]/MODL
[2017-01-30] MEDS ORDERED: HEPARIN 10,000 UNIT/10 ML MDV IVP PRN (15:22)
[2017-01-30] MEDS ORDERED: HEPARIN/DEXTROSE 500 ML IV SCH (15:30)
[2017-01-30] MEDS: guaiFENesin/CODEINE PHOS 10 ML UDCUP PO PRN ×2 (15:43→23:24)
[2017-01-30] MEDS ORDERED: WARFARIN SODIUM 5 MG TAB PO SCH (16:00)
--- NOTE | 2017-01-30 17:19 | HOSPPROG ---
Hospitalist Progress Note Assessment/Plan: Assessment: 71-year-old male presents with acute on chronic hypoxic respiratory failure Plan: # Acute on chronic hypoxemic resp failure: worsening, further w/u indicated. Evidenced by SpO2 71% w/ objective tachypnea (RR 42) and symptomatic shortness of breat, suspect this is due primarily to a non-cardiac cause such as an inflammatory lung disorder as well as an acute CHF component - d/w Dr. Pratt and Dr. Carrillo, now that patient is euvolemic and his oxygen requirements continue to rise, his current issue is much more likely be to pulmonary - Dr. Suggs has consulted for lung biopsy tomorrow w/ FFP prior to procedure and ventilator post-procedure is likely - cont on vapotherm 30LPM/Fi100% # Acute systolic CHF exacerbation: EF 40-45%, hypervolemic on presentation, CXR w/ infiltrates (personally interpreted) and BNP 5300 - has recently been hospitalized for similar presentation - net neg 3kg - strict I/O, monitor lytes - no further diuresis (with ERIN), can restart PO lasix once Cr stabilizes - d/w Dr. Carrillo, we do not believe that the primary cause of the worsening resp failure is cardiac in origin, and Cards will sign-off at this time; please re-consult if further concerns arise # Hypotension. Acute, 2/2 hypovolemia from over-diuresis - given 500cc bolus x 2 # CAD: Chronic, bypass x 2 with vein graft occlusion (per cath 2011), NSTEMI in Dec 2016 with cath showed patent WOLFE to 1st diagonal, ALETHA to LAD - holding ASA/plavix for procedure - cont statin and bblocker (lowered dosage) - no further risk strat indicated # Hypervolemic hyponatremia: acute, improving w/ diuresis - marginal decline today, cont to monitor - NADYA level pending # Mechanical AVR: INR supratherapeutic, cont hold coumadin today - repeat INR in AM # Chronic HTN: reduced metop given hypotension # Uncontrolled DM: sugars >250. On high-dose glargine # Atrial fibrillation: BB, coumadin Diet. Cardiac, fluid restriction PPx. On coumadin Code. full Dispo. ADD uncertain, pending pulm biopsy tomorrow. Subjective: Patient reports he continues to be short of breath with any activity Objective: Vital Signs Temp Pulse Resp BP Pulse Ox 36.8 C 90 29 H 95/40 L 96 01/30/17 16:16 01/30/17 16:16 01/30/17 16:16 01/30/17 16:16 01/30/17 16:16 Laboratory Results 01/30/17 05:00 01/30/17 05:00 01/29/17 01/30/17 01/31/17 05:59 05:59 05:59 Intake Total 1360 1350 Output Total 1602 810 200 Balance -242 540 -200 PT 38.0 SEC (12.0-15.0) H D 01/30/17 05:00 INR 3.79 (0.83-1.16) H 01/30/17 05:00 - Physical Exam Constitutional: appears nourished, not in pain, chronically ill appearing, uncomfortable Cardiovascular: systolic murmur (106 systolic murmur at the sternum), No irregularly irregular, No tachycardia, No edema Respiratory: respiratory distress (Visible tachypnea), rhonchi (On inspiration bilaterally), No reduced air movement, No expiratory wheeze, No bronchial breath sounds Gastrointestinal: normoactive bowel sounds, soft, non-tender abdomen, no palpable masses Neurologic: AAOx3, sensation intact bilaterally, No weakness Psychiatric: interacting appropriately, not anxious, not encephalopathic, thought process linear ICD10 Worksheet Patient Problems: Problems Problem Status Onset Left arm pain Acute Sepsis affecting skin Acute Hypotension Acute Chest pain Acute Congestive heart failure Acute Hypoxemia Acute Hyponatremia Acute
[2017-01-30 18:27] LABS: APTT 39.2 SEC (23.0-38.0)
[2017-01-30 18:33] LABS: INR 2.78 (0.83-1.16); PROTIME(PATIENT) 29.7 SEC (12.0-15.0)
[2017-01-30] MEDS ORDERED: FUROSEMIDE 40 MG/4 ML VIAL IVP ONE (22:28)
[2017-01-30] MEDS: INSULIN GLARGINE 100 UNITS/ML SYRINGE SC SCH (22:43)
[2017-01-31] MEDS: guaiFENesin/CODEINE PHOS 10 ML UDCUP PO PRN (05:26)
[2017-01-31] MEDS: HYDROCODONE/APAP 5/325 TAB PO PRN (05:43)
[2017-01-31 06:14] LABS: % IMMATURE GRANULYOCYTES 0.4 % (0.0-1.1); ABSOLUTE IMMATURE GRANULOCYTES 0.05 10^3/uL (0.00-0.10); ADD DIFF? NO; ADD MORPH? NO; ADD SCAN? NO; ATYPICAL LYMPHOCYTE FLAG 0 (0-99); FRAGMENT RBC FLAG 0 (0-99); HEMATOCRIT 30.1 % (40.0-51.0); HEMOGLOBIN 10.3 g/dL (13.7-17.5); LEFT SHIFT FLG 0 (0-99); LIPEMIA HEMOLYSIS FLAG 90 (0-99); MEAN CELL HEMOGLOBIN 31.9 pg (27.9-34.1); MEAN CELL HEMOGLOBIN CONCENTR. 34.2 g/dL (32.4-36.7); MEAN CELL VOLUME 93.2 fL (81.5-99.8); MEAN PLATELET VOLUME 9.9 fL (8.7-11.7); PLATELET CLUMPS FLAG 0 (0-99); PLATELET COUNT 269 10^3/uL (150-400); RED BLOOD CELL COUNT 3.23 10^6/uL (4.40-6.38); RED CELL DISTRIBUTION WIDTH 17.2 % (11.5-15.2)
[2017-01-31 06:25] LABS: INR 1.58 (0.83-1.16); PROTIME(PATIENT) 18.9 SEC (12.0-15.0)
[2017-01-31 07:27] LABS: ALANINE AMINOTRANSFERASE 53 IU/L (21-72); ALBUMIN 3.6 g/dL (3.5-5.0); ALKALINE PHOSPHATASE 520 IU/L (38-126); ANION GAP 11 mEq/L (8-16); ASPARTATE AMINOTRANSFERASE 58 IU/L (17-59); BILIRUBIN,TOTAL 0.9 mg/dL (0.1-1.4); CALCIUM 9.6 mg/dL (8.5-10.4); CARBON DIOXIDE 29 mEq/l (22-31); CHLORIDE 90 mEq/L (97-110); CREATININE 1.3 mg/dL (0.7-1.3); GLOMERULAR FILTRATION RATE 54; GLUCOSE 152 mg/dL (70-100); POTASSIUM 4.8 mEq/L (3.5-5.2); SODIUM 130 mEq/L (134-144); TOTAL PROTEIN 7.3 g/dL (6.3-8.2)
[2017-01-31] MEDS: INSULIN LISPRO 100 UNIT/ML CUSTOM SC SCH ×3 (08:56→18:27)
[2017-01-31] MEDS: ATORVASTATIN CALCIUM 40 MG TAB PO SCH (09:03)
[2017-01-31] MEDS: FAMOTIDINE 20 MG TAB PO SCH (09:03)
[2017-01-31] MEDS: SENNOSIDES/DOCUSATE SODIUM TAB PO SCH (09:03)
[2017-01-31] MEDS: METOPROLOL TARTRATE 25 MG TAB PO SCH (09:04)
[2017-01-31] MEDS ORDERED: BUPIVACAINE 0.5% 30 ML SDV ONE (10:07)
[2017-01-31] MEDS ORDERED: SKIN ADHESIVE (DERMABOND) 1 EACH TP ONE (10:07)
[2017-01-31] MEDS ORDERED: BUPIVACAINE/EPI 0.25% 30 ML SDV ONE (11:15)
--- NOTE | 2017-01-31 11:19 | PDINTPN ---
Papeterie Table Assembler Progress Note Assessment/Plan: Assessment: Bilateral pulmonary infiltrates. Etiology is not clear. Doubt significant congestive heart failure at this time. Inflammatory lung disease/pneumonitis of unclear etiology most likely. Doubt pneumonia. I have recommended open lung biopsy. For open lung biopsy today. Off Coumadin. INR 1.58. On heparin drip, to be stopped prior to surgery Hypoxemia: Secondary to above. Respiratory status no better, on high-flow oxygen, remains dyspneic. Chest x-ray without change.. History of coronary artery disease and aortic valve replacement. Appears stable. Ejection fraction remains stable at approximately 45%. Diastolic dysfunction present. Valve functioning well Metabolic: Hyponatremia, sodium slightly down today. On fluid restriction. Hyperglycemia, on sliding scale coverage. Anticoagulation: INR 1.8 after FFP yesterday. Will give 1 today. Plan: Continue care in the intensive care unit. Continue present care in high- flow O2, bronchopulmonary therapies. For open lung biopsy. I anticipate that the patient will come back on the ventilator and will need ventilatory assistance for several days. Will plan on starting steroids after the procedure empirically. Request cultures, pathology, and special stains on lung tissue. 35 minutes of critical care time spent directly with the patient this morning. All the above discussed with the patient, his daughter and his . Discussed w/ RT, hospitalist, nursing, and the ICU multi disciplinary team. Subjective: Unchanged comma up in the chair, on double oxygen set up with Oxymizer and Vapotherm. Remains short of breath. Dry cough Objective: Vital Signs Temp Pulse Resp BP Pulse Ox 36.5 C 99 21 H 120/59 L 97 01/31/17 08:00 01/31/17 09:04 01/31/17 08:00 01/31/17 09:04 01/31/17 08:00 Laboratory Results 01/31/17 06:00 01/31/17 06:00 01/30/17 01/31/17 02/01/17 05:59 05:59 05:59 Intake Total 1350 2612.2 Output Total 810 1200 Balance 540 1412.2 PT 18.9 SEC (12.0-15.0) H D 01/31/17 06:00 INR 1.58 (0.83-1.16) H 01/31/17 06:00 CXR: No change. Physical Exam - Physical Exam General Appearance: alert, mild distress EENT: other (On double O2 setup) Neck: normal inspection (Relatively large neck) Respiratory: respiratory distress (Mild), decreased breath sounds, rales (Fine rales at bases and above, anteriorly as well as posteriorly), No normal breath sounds, No rhonchi Cardiac/Chest: regular rate, rhythm, other (Bowel sounds fine) Abdomen: normal bowel sounds, non-tender, soft Male Genitalia: other (No Decker catheter. Input greater than output by about a L last 24 hours) Skin: normal color, warm/dry Neuro/Psych: no motor/sensory deficits, alert, No cognition abnormalities ICD10 Worksheet Patient Problems: Problems Problem Status Onset Left arm pain Acute Sepsis affecting skin Acute Hypotension Acute Chest pain Acute Congestive heart failure Acute Hypoxemia Acute Hyponatremia Acute
--- NOTE | 2017-01-31 13:02 | HOSPPROG ---
Hospitalist Progress Note Assessment/Plan: 71-year-old male presents with acute on chronic hypoxic respiratory failure Plan: Acute on chronic hypoxemic resp failure: pulm infiltrates did not resolve when diuresed to euvolemia open lung biopsy today steroids following biopsy anticipate need for prolonged mechanical ventilation Acute systolic CHF exacerbation: EF 40-45%, hypervolemic on presentation, CXR w / infiltrates (personally interpreted) and BNP 5300 diuresed 3 kg has near normal ef Hypotension. Acute, 2/2 hypovolemia from over-diuresis diuresis on hold CAD: Chronic, bypass x 2 with vein graft occlusion (per cath 2011), NSTEMI in Dec 2016 with cath showed patent WOLFE to 1st diagonal, ALETHA to LAD holding ASA/plavix for procedure cont statin and bblocker (lowered dosage) Hypervolemic hyponatremia: acute, improving w/ diuresis improving Mechanical AVR: INR supratherapeutic, INR 1.6 today- on heparin gtt Chronic HTN: reduced metop given hypotension Uncontrolled DM: increase lantus will need increased insulin w steroids Subjective: case d/w dr abrams. plan for open lung biopsy today Objective: Vital Signs Temp Pulse Resp BP Pulse Ox 36.8 C 86 28 H 108/43 L 97 01/31/17 12:00 01/31/17 12:00 01/31/17 12:00 01/31/17 12:00 01/31/17 12:00 Laboratory Results 01/31/17 06:00 01/31/17 06:00 01/30/17 01/31/17 02/01/17 05:59 05:59 05:59 Intake Total 1350 2612.2 Output Total 810 1200 Balance 540 1412.2 PT 18.9 SEC (12.0-15.0) H D 01/31/17 06:00 INR 1.58 (0.83-1.16) H 01/31/17 06:00 - Physical Exam Constitutional: other (tachypneic) Eyes: PERRL, anicteric sclera Ears, Nose, Mouth, Throat: moist mucous membranes, hearing normal Cardiovascular: regular rate and rhythym, no murmur, rub, or gallop, tachycardia Respiratory: other (tachypneic. diffuse crackles) Gastrointestinal: normoactive bowel sounds Genitourinary: No madrigal in urethra Skin: warm, normal color Musculoskeletal: full muscle strength Neurologic: AAOx3 ICD10 Worksheet Patient Problems: Problems Problem Status Onset Chest pain Acute Congestive heart failure Acute Hyponatremia Acute Hypoxemia Acute Hypotension Acute Left arm pain Acute Sepsis affecting skin Acute
[2017-01-31] MEDS ORDERED: INSULIN GLARGINE 100 UNITS/ML SYRINGE SC SCH (13:09)
[2017-01-31] MEDS ORDERED: fentaNYL 100 MCG/2 ML INJ ONE (14:53)
[2017-01-31] MEDS ORDERED: REMIFENTANIL HCL 1 MG VIAL ONE (14:53)
[2017-01-31] MEDS ORDERED: PROPOFOL/EMULSION 500 MG/50 ML BOTTLE IV ONE (14:53)
[2017-01-31] MEDS ORDERED: epHEDrine SULFATE 10 MG/ML SYR ONE ×3 (14:55→15:51)
[2017-01-31] MEDS ORDERED: LIDOCAINE HCL 160 MG/4 ML LTA KIT TP ONE (14:55)
[2017-01-31] MEDS ORDERED: LIDOCAINE 2% 100 MG/5 ML SYR ONE (14:55)
[2017-01-31] MEDS ORDERED: LIDOCAINE 2% JELLY 5 ML TUBE ONE (14:56)
[2017-01-31] MEDS ORDERED: PHENYLEPHRINE HCL 100 MCG/ML SYR ONE ×2 (14:58)
[2017-01-31] MEDS ORDERED: ceFAZolin 2 GM/DEXTROSE 100 ML IV ONE (15:04)
[2017-01-31] MEDS ORDERED: ROCURONIUM 50 MG/5 ML VIAL ONE (15:40)
--- NOTE | 2017-01-31 16:27 | POSTOPPROG ---
Post Op Note Date of Operation: 01/31/17 Surgeon: Aneesh Suggs Grooving Machine Operator: Toño Anesthesiologist: Guzman Anesthesia: GET(General Endotracheal) Pre-op Diagnosis: respiratory failure Procedure: VATS RUL and RLL bx w cultures Inf/Abcess present in the surg proc area at time of surgery?: No EBL: Minimal Complications: friable lung, didnt hold alyssa well Specimen(s): rul/rll
[2017-01-31] MEDS ORDERED: ONDANSETRON 4 MG/2 ML VIAL IVP PRN (16:49)
--- NOTE | 2017-01-31 16:52 | GOP ---
[f rep st] OPERATIVE REPORT DATE OF OPERATION: 01/31/2017 SURGEON: Aneesh Suggs DO SEMIAUTOMATIC TAPER OPERATOR: Darby Lundberg PA-C. ANESTHESIOLOGIST: Eduardo Hinds MD. PREOPERATIVE DIAGNOSIS: Respiratory failure with diffuse pulmonary infiltrates. POSTOPERATIVE DIAGNOSIS: Respiratory failure with diffuse pulmonary infiltrates. PROCEDURE PERFORMED: Right VATS open lung biopsy of the right upper and right lower lobe with cultu res and pathology sent. FINDINGS: DESCRIPTION OF PROCEDURE: Patient was brought to the operating room in the lateral decubitus positi on with double-lumen endotracheal ventilation. 3 portals in the standard fashion were placed in the right chest. With endoscopic guidance, a portion of the right upper and right lower lobe were exci sed utilizing Endo staplers. The tissue was quite edematous and boggy and firm and did not hold sta ples well. We stapled as best we could to avoid any sort of air leak. A single chest tube was plac ed. 0.25% Marcaine with epinephrine was used to infiltrate the intercostal spaces. A central line and arterial line as well as a Decker were placed in the OR for postoperative management. The patien t was returned to ICU in stable condition. /[id number]/MODL
[2017-01-31] MEDS ORDERED: fentaNYL 100 MCG/2 ML INJ IVP PRN (17:13)
[2017-01-31] MEDS ORDERED: PROPOFOL/EMULSION 1,000 MG/100 ML BOTTLE IV ONE (17:19)
[2017-01-31 17:38] LABS: BASE EXCESS -8.6 mEq/L (-2.5-2.5); BICARBONATE 20 mEq/L (22-26); MEASURED OXYGEN SATURATION 87 % (92-95); PCO2 58 mmHg (34-38); PO2 67 mmHg (65-75); TCO2 22 mEq/L (23-27)
[2017-01-31 17:41] LABS: SIMV YES
[2017-01-31 17:42] LABS: O2 CONCENTRATIION 100 % (0-100); P/F RATIO 67 RATIO; PATIENT RATE 45; PIP 31.9; PRESSURE SUPPORT 7
[2017-01-31] MEDS ORDERED: FUROSEMIDE 40 MG/4 ML VIAL IVP ONE (17:50)
[2017-01-31] MEDS ORDERED: SODIUM BICARBONATE 50 MEQ/50 ML SYR IVP ONE (18:00)
[2017-01-31] MEDS ORDERED: ALBUMIN 5% 500 ML IV ONE (18:03)
[2017-01-31] MEDS ORDERED: ALBUMIN 5% 500 ML BOTTLE IV ONE (18:04)
[2017-01-31] MEDS: AZITHROMYCIN IV 500 MG in D5W 250 ML IV SCH (18:07)
[2017-01-31] MEDS: fentaNYL/NACL 100 ML IV SCH (18:11)
[2017-01-31] MEDS: methylPREDNISolone SOD SUCC 125 MG/2 ML VIAL IVP SCH (18:18)
[2017-01-31] MEDS: NOREPINEPHRINE BITARTRATE 4 MG in D5W 500 ML IV SCH ×2 (18:24→21:24)
[2017-01-31] MEDS: PROPOFOL/EMULSION 100 ML IV SCH ×2 (19:27→22:30)
[2017-01-31] MEDS: CEFEPIME HCL 1 GM in D5W 50 ML IV SCH (19:56)
[2017-01-31 20:01] LABS: BASE EXCESS -4.1 mEq/L (-2.5-2.5); BICARBONATE 22 mEq/L (22-26); MEASURED OXYGEN SATURATION 97 % (92-95); PCO2 46 mmHg (34-38); PO2 98 mmHg (65-75); TCO2 23 mEq/L (23-27)
[2017-01-31] MEDS ORDERED: FAMOTIDINE 20 MG/NACL 50 ML IV SCH (21:00)
[2017-01-31] MEDS: CHLORHEXIDINE GLUCONATE 15 ML UDL PO SCH (21:22)
[2017-02-01] MEDS: fentaNYL/NACL 100 ML IV SCH ×2 (01:47→14:23)
[2017-02-01] MEDS: methylPREDNISolone SOD SUCC 125 MG/2 ML VIAL IVP SCH ×4 (01:50→18:26)
[2017-02-01 04:06] LABS: % IMMATURE GRANULYOCYTES 0.4 % (0.0-1.1); ABSOLUTE IMMATURE GRANULOCYTES 0.05 10^3/uL (0.00-0.10); ADD DIFF? NO; ADD MORPH? NO; ADD SCAN? NO; ATYPICAL LYMPHOCYTE FLAG 0 (0-99); BASE EXCESS -8.3 mEq/L (-2.5-2.5); BICARBONATE 19 mEq/L (22-26); FRAGMENT RBC FLAG 0 (0-99); HEMATOCRIT 25.8 % (40.0-51.0); HEMOGLOBIN 8.3 g/dL (13.7-17.5); LEFT SHIFT FLG 0 (0-99); LIPEMIA HEMOLYSIS FLAG 80 (0-99); MEAN CELL HEMOGLOBIN 31.1 pg (27.9-34.1); MEAN CELL HEMOGLOBIN CONCENTR. 32.2 g/dL (32.4-36.7); MEAN CELL VOLUME 96.6 fL (81.5-99.8); MEAN PLATELET VOLUME 9.7 fL (8.7-11.7); MEASURED OXYGEN SATURATION 87 % (92-95); PCO2 50 mmHg (34-38); PLATELET CLUMPS FLAG 10 (0-99); PLATELET COUNT 222 10^3/uL (150-400); PO2 68 mmHg (65-75); RED BLOOD CELL COUNT 2.67 10^6/uL (4.40-6.38); RED CELL DISTRIBUTION WIDTH 17.4 % (11.5-15.2); TCO2 21 mEq/L (23-27)
[2017-02-01 04:29] LABS: ANION GAP 14 mEq/L (8-16); CALCIUM 8.4 mg/dL (8.5-10.4); CARBON DIOXIDE 20 mEq/l (22-31); CHLORIDE 90 mEq/L (97-110); CREATININE 1.3 mg/dL (0.7-1.3); GLOMERULAR FILTRATION RATE 54; GLUCOSE 432 mg/dL (70-100); POTASSIUM 5.6 mEq/L (3.5-5.2); SODIUM 124 mEq/L (134-144)
[2017-02-01 04:36] LABS: INR 1.56 (0.83-1.16); PROTIME(PATIENT) 18.7 SEC (12.0-15.0)
[2017-02-01] MEDS ORDERED: FUROSEMIDE 40 MG/4 ML VIAL IVP ONE (04:57)
[2017-02-01] MEDS: CEFEPIME HCL 1 GM in D5W 50 ML IV SCH ×2 (05:46→18:15)
[2017-02-01] MEDS: PROPOFOL/EMULSION 100 ML IV SCH ×2 (07:13→14:11)
[2017-02-01] MEDS: NOREPINEPHRINE BITARTRATE 4 MG in D5W 500 ML IV SCH ×3 (07:13→18:26)
[2017-02-01] MEDS: PANTOPRAZOLE SODIUM 40 MG in NS 100 ML IV SCH (08:41)
[2017-02-01] MEDS: AZITHROMYCIN IV 500 MG in D5W 250 ML IV SCH (08:41)
[2017-02-01] MEDS: INSULIN LISPRO 100 UNIT/ML CUSTOM SC SCH (08:41)
[2017-02-01] MEDS: ASPIRIN 81 MG CHEWABLE TAB PO SCH ×2 (08:41→08:50)
--- NOTE | 2017-02-01 09:01 | SOAPPROG ---
SOAP Progress Note Assessment/Plan: Assessment: POD#1 RVATS wedge biopsies; placement left radial gabriel, rt SC QLC, madrigal. Acute respiratory failure with diffuse bilateral interstitial infiltrates - s/p RUL and RLL bxs to inform dx. Prelim cxs NOS. Path pending. DL ETT exchanged to single lumen ETT post procedure and kept intubated. Medical management per ICU. Plan: Keep chest tube to pleurovac. Ok to resume heparin gtt. 02/01/17 08:57 Objective: Vital Signs Temp Pulse Resp BP Pulse Ox 36.9 C 98 14 102/53 L 91 L 02/01/17 04:00 02/01/17 07:00 02/01/17 07:00 02/01/17 07:00 02/01/17 07:00 Microbiology 01/31/17 15:51 Gram Stain - Final Lung - Tissue Laboratory Results 02/01/17 03:53 02/01/17 03:53 01/31/17 02/01/17 02/02/17 05:59 05:59 06:59 Intake Total 2612.2 2500 Output Total 1200 1655 125 Balance 1412.2 845 -125 PT 18.7 SEC (12.0-15.0) H 02/01/17 03:53 INR 1.56 (0.83-1.16) H 02/01/17 03:53 CXR-> increased opacities bilateral lung cantor, no visible PTX. Pleurovac minimal CTOP. Physical Exam - Physical Exam General Appearance: no apparent distress Respiratory: other (Rt chest tube to pleurovac, mostly serous drainage, +tidal, no air leak) Cardiac/Chest: regular rate, rhythm ICD10 Worksheet Patient Problems: Problems Problem Status Onset Chest pain Acute Congestive heart failure Acute Hyponatremia Acute Hypoxemia Acute Hypotension Acute Left arm pain Acute Sepsis affecting skin Acute
[2017-02-01] MEDS: CHLORHEXIDINE GLUCONATE 15 ML UDL PO SCH ×2 (09:25→22:04)
[2017-02-01] MEDS ORDERED: HEPARIN 10,000 UNIT/10 ML MDV IVP PRN (09:34)
[2017-02-01] MEDS ORDERED: SODIUM BICARBONATE 50 MEQ/50 ML SYR IVP ONE (09:36)
[2017-02-01] MEDS ORDERED: FUROSEMIDE 20 MG/2 ML VIAL IVP ONE ×2 (09:37→17:00)
[2017-02-01] MEDS ORDERED: D50W 25 GM/50 ML SYR IVP PRN (09:40)
[2017-02-01] MEDS ORDERED: HEPARIN/DEXTROSE 500 ML IV SCH (10:00)
[2017-02-01] MEDS ORDERED: INSULIN REGULAR HUMAN 100 UNIT/ML SC SCH (10:00)
[2017-02-01 10:54] LABS: % IMMATURE GRANULYOCYTES 0.6 % (0.0-1.1); ABSOLUTE IMMATURE GRANULOCYTES 0.04 10^3/uL (0.00-0.10); ADD DIFF? NO; ADD MORPH? NO; ADD SCAN? YES; ATYPICAL LYMPHOCYTE FLAG 0 (0-99); FRAGMENT RBC FLAG 0 (0-99); HEMATOCRIT 23.4 % (40.0-51.0); HEMOGLOBIN 7.8 g/dL (13.7-17.5); LEFT SHIFT FLG 70 (0-99); LIPEMIA HEMOLYSIS FLAG 80 (0-99); MEAN CELL HEMOGLOBIN 31.3 pg (27.9-34.1); MEAN CELL HEMOGLOBIN CONCENTR. 33.3 g/dL (32.4-36.7); MEAN PLATELET VOLUME 10.6 fL (8.7-11.7); PLATELET CLUMPS FLAG 10 (0-99); PLATELET COUNT 167 10^3/uL (150-400); RED BLOOD CELL COUNT 2.49 10^6/uL (4.40-6.38); RED CELL DISTRIBUTION WIDTH 17.1 % (11.5-15.2)
[2017-02-01 11:04] LABS: INR 4.19 (0.83-1.16); PROTIME(PATIENT) 41.2 SEC (12.0-15.0)
[2017-02-01 11:05] LABS: APTT 61.6 SEC (23.0-38.0)
[2017-02-01] MEDS ORDERED: SODIUM BICARBONATE 50 MEQ/50 ML SYR ONE (11:05)
[2017-02-01] MEDS ORDERED: AMIODARONE HCL 150 MG/100 ML BAG (1.5 MG/ML) IV ONE (11:11)
--- NOTE | 2017-02-01 11:13 | CPEKG ---
Heart Rate: 149 RR Interval: 403 QRSD Interval: 236 QT Interval: 348 QTC Interval: 548 P [place]: 0 QRS [place]: -84 T Wave [place]: 98 EKG Severity - ABNORMAL ECG - EKG Impression: SVT WITH ABERRANCY VS VT Electronically Signed By: Lilly Vivar 01-Feb-2017 17:02:09
[2017-02-01 11:19] LABS: CALCULATED OXYGEN SATURATION 100 % (92-95)
--- NOTE | 2017-02-01 11:25 | HOSPPROG ---
Hospitalist Progress Note Assessment/Plan: 71-year-old male presents with acute on chronic hypoxic respiratory failure Plan: code: levophed ran out, hypotensive, bradycardic and then pulseless cpr initiated essentially immediately now tachycardic w pulse tachycardia: immediate aftereffect of code meds (epi, atropine) cycle trop may need amiodarone- give meds a bit of time to wear off hyperglycemia: known dm w high dose steroids start insulin gtt Acute on chronic hypoxemic resp failure: pulm infiltrates did not resolve when diuresed to euvolemia open lung biopsy yesterday steroids and antibiotics started following biopsy anticipate need for prolonged mechanical ventilation Acute systolic CHF exacerbation: EF 40-45%, hypervolemic on presentation, CXR w / infiltrates (personally interpreted) and BNP 5300 diuresed 3 kg has near normal ef Hypotension. Acute, 2/2 hypovolemia from over-diuresis diuresis on hold CAD: Chronic, bypass x 2 with vein graft occlusion (per cath 2011), NSTEMI in Dec 2016 with cath showed patent WOLFE to 1st diagonal, ALETHA to LAD holding ASA/plavix for procedure cont statin and bblocker (lowered dosage) Hypervolemic hyponatremia: woqrse today, likely 2/2 IVF in OR diuresis recommenced follow Mechanical AVR: INR supratherapeutic, INR 1.6 today- on heparin gtt Chronic HTN: reduced metop given hypotension Uncontrolled DM: increase lantus will need increased insulin w steroids Subjective: case d/w dr abrams. code called at 10: 40. 35' crit care Objective: Vital Signs Temp Pulse Resp BP Pulse Ox 36.9 C 101 H 15 108/53 L 91 L 02/01/17 04:00 02/01/17 09:00 02/01/17 09:00 02/01/17 09:00 02/01/17 09:00 Microbiology 01/31/17 15:51 Gram Stain - Final Lung - Tissue 01/31/17 02/01/17 02/02/17 05:59 05:59 06:59 Intake Total 2612.2 2500 Output Total 1200 1655 150 Balance 1412.2 845 -150 PT 18.7 SEC (12.0-15.0) H 02/01/17 03:53 INR 1.56 (0.83-1.16) H 02/01/17 03:53 - Physical Exam Constitutional: no apparent distress, appears nourished Eyes: PERRL, anicteric sclera Ears, Nose, Mouth, Throat: moist mucous membranes, hearing normal Cardiovascular: regular rate and rhythym, no murmur, rub, or gallop Respiratory: no respiratory distress, no rales or rhonchi Gastrointestinal: normoactive bowel sounds, soft, non-tender abdomen Genitourinary: madrigal in urethra Skin: warm, normal color Musculoskeletal: no muscle tenderness, No full muscle strength Neurologic: No AAOx3 Psychiatric: No interacting appropriately Lymph, Heme, Immunologic: no cervical LAD ICD10 Worksheet Patient Problems: Problems Problem Status Onset Chest pain Acute Congestive heart failure Acute Hyponatremia Acute Hypoxemia Acute Hypotension Acute Left arm pain Acute Sepsis affecting skin Acute
[2017-02-01 11:28] LABS: HEMATOCRIT 24.2 % (40.0-51.0); HEMOGLOBIN 8.1 g/dL (13.7-17.5); MEAN CELL HEMOGLOBIN 31.2 pg (27.9-34.1); MEAN CELL HEMOGLOBIN CONCENTR. 33.5 g/dL (32.4-36.7); MEAN CELL VOLUME 93.1 fL (81.5-99.8); RED BLOOD CELL COUNT 2.6 10^6/uL (4.40-6.38); RED CELL DISTRIBUTION WIDTH 16.9 % (11.5-15.2)
[2017-02-01 11:38] LABS: SCAN NEGATIVE
[2017-02-01 11:43] LABS: INR 3.04 (0.83-1.16); PROTIME(PATIENT) 31.9 SEC (12.0-15.0)
[2017-02-01 11:44] LABS: APTT 52.9 SEC (23.0-38.0)
[2017-02-01 11:49] LABS: ANION GAP 14 mEq/L (8-16); CALCIUM 10.8 mg/dL (8.5-10.4); CARBON DIOXIDE 33 mEq/l (22-31); CHLORIDE 86 mEq/L (97-110); CREATININE 1.6 mg/dL (0.7-1.3); GLOMERULAR FILTRATION RATE 43; POTASSIUM 5.9 mEq/L (3.5-5.2); SODIUM 133 mEq/L (134-144)
[2017-02-01 11:54] LABS: GLUCOSE 572 mg/dL (70-100)
--- NOTE | 2017-02-01 11:57 | ECHO ---
[id number] + + [id number] : : [place] [address] : : [phone] + + Adult Echocardiographic Report + ---+ :Name: AAMIR MONCADA Tasneem Date: 02/01/2017 11:20 AM : : Hospital Admission Number: [id number] Location: 251: :: 1945 Gender: Male : :Age: 71 yrs Race: HL,PTD,OTH : :Reason For Study: Post Code : :History: AVR, CABG : + ---+ MMode/2D Measurements \T\ Calculations IVSd: 1.2 cm LVIDd: 5.3 cm FS: 9.0 % LVOT diam: 1.7 cm LVPWd: 1.4 cm LVIDs: 4.8 cm EDV(Teich): LVOT area: 136.2 ml ESV(Teich): 2.3 cm2 109.4 ml EF(Teich): 19.7 % LVLd ap4: 8.7 cm SV(MOD-sp4): EDV(MOD-sp4): 71.0 ml 148.0 ml LVLs ap4: 8.3 cm ESV(MOD-sp4): 77.0 ml EF(MOD-sp4): 48.0 % Normal Measurement Values: + + :LVIDd (3.5-5.7cm) IVSd (0.6-1.1cm) LVPWd (0.6-1.1cm) Aortic Root (2.0-3.7cm)Left Atrium (1.5-4.0cm): :LV Vol(d) (76-115ml) LV Vol(s) (29-48ml) Ejec Fraction (50-65%)PV Ayden (0.6- 1.2m/s) TV Ayden (0.4-1.0m/s) : :MV E Ayden (0.8-1.0m/s)MV A Ayden (0.3-1.0m/s)LVOT Ayden (0.7-1.2m/s) Asc Ao Ayden ( 0.9-1.8m/s) : + + Doppler Measurements \T\ Calculations Ao mean P.3 mmHg LV V1 max: 133.3 cm/sec TR max ayden: 259.4 cm/sec Ao V2 mean: 118.8 cm/sec LV V1 max P.1 mmHg TR max P.9 mmHg Ao V2 VTI: 20.7 cm Left Ventricle The left ventricle is normal in size. There is mild concentric left ventricular hypertrophy. Ejection Fraction = 40-45%. Akinetic Mid-Basal Inferolateral. Hypokinetic Basal-Mid Inferoseptum. Septal motion is consistent with conduction abnormality. + ---------+ : : :I WMSI = 1.50 % Normal = 63 : + + + ---------+ :+ +:+ ++ +: : :: ::: :: :: : :: ::: :: :: : :: ::: :: :: : :: ::: :: :: : :: ::: :: :: : :: ::: :: :: : :: ::+ ++ +: : :: ::+ ++ +: : :: ::: :: :: : :: ::: :: :: : :: ::: :: :: : :: ::: :: :: : :: ::: :: :: : :: ::: :: :: : :+ +:+ ++ +: : + + ---------+ : : : : : Segments Size : : :+--------+ --------+: :X - Cannot 0 - 1 - Normal (2) - Mildly 2 - ::1-2 : small :: :Interpret Hyperkinetic Hypokinetic Hypokinetic :+--------+ --------+: : 4 - 5 - 6 - Akinetic 7 - ::3-5 : moderate:: :3 - Akinetic Dyskinetic Aneurysmal w/scar Dyskinetic :+--------+ --------+: : w/scar ::6-14 : large :: : :+--------+ --------+: : ::15-16 : diffuse :: : :+--------+ --------+: + + ---------+ Right Ventricle The right ventricle is grossly normal size. Mitral Valve The mitral valve leaflets appear thickened, but open well. There is mild mitral annular calcification. There is no evidence of mitral valve prolapse. There is no mitral valve stenosis. There is mild to moderate mitral regurgitation. Tricuspid Valve The tricuspid valve is normal in structure and function. There is no tricuspid stenosis. There is mild tricuspid regurgitation. Aortic Valve There is no aortic insufficiency. There is a mechanical aortic valve. Pulmonic Valve The pulmonic valve is not well visualized. Great Vessels The aortic root is normal size. Pericardium/Pleural There is no pericardial effusion. There is a fat pad seen. There is no pleural effusion. Conclusion A complete two-dimensional transthoracic echocardiogram was performed (2D, M-mode, Doppler and color flow Doppler). The left ventricle is normal in size. There is mild concentric left ventricular hypertrophy. Ejection Fraction = 40-45%. Akinetic Mid-Basal Inferolateral. Hypokinetic Basal-Mid Inferoseptum. There is mild to moderate mitral regurgitation. There is mild tricuspid regurgitation. There is a mechanical aortic valve. There is no pleural effusion. Final Reading Physician: Gulshan Acuña electronically signed on 02/01/2017 11:56 AM Ordering Physician: MUNIR GALLARDO Performed By: Beckie Lopez
[2017-02-01] MEDS ORDERED: INSULIN REGULAR HUMAN 100 UNIT/ML IVP ONE (12:07)
[2017-02-01] MEDS: D5W 1,000 ML IV SCH (13:48)
[2017-02-01] MEDS: INSULIN REGULAR HUMAN 100 UNIT in NS 100 ML IV SCH (13:48)
[2017-02-01 14:56] LABS: CALCULATED OXYGEN SATURATION 94 % (92-95)
--- NOTE | 2017-02-01 15:17 | PDINTPN ---
Physical Medicine Physician Progress Note Assessment/Plan: Assessment: Status post open lung biopsy. Results pending. On empiric high-dose steroids and antibiotics. Acute respiratory failure. Followed his surgery. Remains on 80-100% FiO2. Hypotension: On norepinephrine Status post cardiac arrest 02/01, with successful resuscitation Bilateral pulmonary infiltrates. Etiology is not clear. Doubt significant congestive heart failure at this time. Inflammatory lung disease/pneumonitis of unclear etiology most likely. Doubt pneumonia. Status post open lung biopsy 01/31 Hypoxemia: Secondary to above. Stable postop. Chest x-ray may look slightly better... History of coronary artery disease and aortic valve replacement. Appears stable. Ejection fraction remains stable at approximately 45%. Diastolic dysfunction present. Valve functioning well. Status post cardiac arrest and successful resuscitation, however I feel that the main issues for this were pulmonary and blood pressure (norepinephrine had run out briefly). However, CVP Ts are high and a component of congestive heart failure/pulmonary edema may be playing a role presently. Will try to diurese with a Lasix drip if possible. Metabolic: Hyponatremia, sodium 124. Hyperglycemia, on high dose sliding scale coverage. May need a insulin drip Anticoagulation: Was restarted on IV heparin briefly this morning. On hold post arrest. INR is therapeutic. Will re-evaluate tomorrow. Plan: Continue ventilatory support, pressors as needed. CVP is relatively high at this point. I will try to diuresis with a Lasix drip if tolerated. Will hold heparin as INR is therapeutic. Will restart heparin likely tomorrow. Cardiology follow-up appreciated. Await biopsy results. Continue steroids, antibiotics. Follow lab, blood gas, chest x-ray... 55 minutes of critical care time spent directly with the patient this morning, not including his arrest and CPR.. I met with the patient's daughter and . Issues discussed. Prognosis unclear. In critical condition. 50/50 at this point?. He will depend how his pulmonary status responds to current therapies, biopsy results, etc.. Discussed w/ RT, hospitalist, nursing, Cardiology, and the ICU multi disciplinary team. Subjective: Sedated, on the ventilator, weekly arouses. Status post cardiac arrest this morning: Dictated separately. Objective: Vital Signs Temp Pulse Resp BP Pulse Ox 36.9 C 95 19 134/57 H 96 02/01/17 04:00 02/01/17 15:00 02/01/17 15:00 02/01/17 15:00 02/01/17 15:00 Microbiology 01/31/17 15:51 Mycobacterial Smear ([facility]QUITO) - Final Lung - Tissue 01/31/17 15:51 Gram Stain - Final Lung - Tissue Laboratory Results 02/01/17 11:09 02/01/17 10:55 01/31/17 02/01/17 02/02/17 05:59 05:59 06:59 Intake Total 2612.2 2500 Output Total 1200 1655 290 Balance 1412.2 845 -290 PT 31.9 SEC (12.0-15.0) H D 02/01/17 11:09 INR 3.04 (0.83-1.16) H 02/01/17 11:09 Laboratory Tests 01/29/17 01/30/17 01/30/17 19:05 05:00 05:00 ESR PT 38.0 H D INR 3.79 H APTT pCO2 pO2 Total CO2 ABG pH Total O2 Concentration O2 Concentration % Calcium Phosphorus Urine Blood NEGATIVE Rheum Factor Semi-Quant 13.2 H VITALY Screen 01/30/17 01/30/17 01/30/17 05:00 05:00 07:52 ESR 74 H PT INR APTT pCO2 44 H pO2 84 H Total CO2 ABG pH 7.36 Total O2 Concentration 30.0 O2 Concentration % 100 Calcium Phosphorus Urine Blood Rheum Factor Semi-Quant VITALY Screen 0.37 02/01/17 02/01/17 02/01/17 03:53 10:55 11:07 ESR PT INR APTT pCO2 50 H 63 H pO2 68 215 H Total CO2 21 L ABG pH 7.20 L 7.39 Total O2 Concentration O2 Concentration % Calcium 10.8 H D Phosphorus 7.1 H Urine Blood Rheum Factor Semi-Quant VITALY Screen 02/01/17 11:09 ESR PT 31.9 H D INR 3.04 H APTT 52.9 H pCO2 pO2 Total CO2 ABG pH Total O2 Concentration O2 Concentration % Calcium Phosphorus Urine Blood Rheum Factor Semi-Quant VITALY Screen CXR: Diffuse infiltrates persist, chest tube on right, possible small apical pneumothorax. Lines and tubes in good position. Lung biopsy initial cultures: Negative AFB smear. No organism seen, no growth to date. Lung biopsy pathology: Not back until Friday. Physical Exam - Physical Exam General Appearance: other (Sedated, on ventilator) EENT: PERRL/EOMI, ET tube, other (NG) Neck: normal inspection (Large neck, jugular venous distension present), No lymphadenopathy (R), No lymphadenopathy (L) Respiratory: decreased breath sounds (Bilaterally with fine rales. No rhonchi. No air leak on the right), other (Right chest tube in place: Serosanguineous drainage), No normal breath sounds, No respiratory distress, No rhonchi, No wheezing Cardiac/Chest: regular rate, rhythm Abdomen: non-tender, soft, No normal bowel sounds (Decreased, present) Male Genitalia: other (Decker catheter in place: Input greater than output) Skin: warm/dry, pallor Neuro/Psych: no motor/sensory deficits (Hard to assess), No cognition abnormalities (Hard to assess) ICD10 Worksheet Patient Problems: Problems Problem Status Onset Left arm pain Acute Sepsis affecting skin Acute Hypotension Acute Chest pain Acute Congestive heart failure Acute Hypoxemia Acute Hyponatremia Acute
--- NOTE | 2017-02-01 15:54 | GPN ---
[f rep st] PROCEDURE NOTE At several minutes before 11, the patient became more bradycardic with subsequent asystole. A Cor-Zero was called. Multiple people responded. CPR was initiated with cardiac compressions, bag ventilation, etc. The rhythm initially was flat line. He was given epinephrine x1, atropine x1, 2 amps of bicarb, and 1 amp of calcium gluconate. He had return of spontaneous circulation with a sinus or supraventricular tachycardia, good pulses, and excellent blood pressure. Chest x-ray was obtained and was similar to the x- ray from the morning. There was no evidence of a pneumothorax. Cardiac echo was obtained. There was no evidence of tamponade. Ejection fraction appeared to be stable at 45%, and his mechanical valve looked good. The patient's heart rate subsequently gradually decreased as did his blood pressure. Norepinephrine , which had been stopped during the arrest, was restarted. He remained in 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. He has remained on high-flow oxygen on the ventilator post arrest , and stable. ASSESSMENT: Successful cardiac resuscitation. /[id number]/MODL MTDD
[2017-02-01] MEDS ORDERED: FUROSEMIDE 20 MG/2 ML VIAL ONE (16:42)
[2017-02-01] MEDS: FUROSEMIDE 100 MG in D5W 100 ML IV SCH (16:47)
--- NOTE | 2017-02-01 17:44 | GCON ---
[f rep st] CONSULTATION DATE OF CONSULTATION: 02/01/2017 REASON FOR CONSULTATION: I was asked to see the patient for an urgent Cardiology consult after an a cute respiratory failure and arrest. HISTORY OF PRESENT ILLNESS: The patient has been admitted to this hospital in mid December for eval uation of shortness of breath and chest discomfort. He was also admitted in the week prior to his r eadmission here at [facility], and was taken there by ambulance for an acute collapse. During his firs t hospitalization here, he underwent extensive evaluation under the care of Dr. Jona Pritchard, with a cardiac catheterization, as well as analysis of his bypass grafts, and also echocardiogram document ing relatively well preserved LV function at 45%, as well as normal function of his [employer] prosthe sis. The patient had normal gradients for that type of valve, and had evidence of relatively normal LV systolic function. He did not have evidence of graft failure or an acute lesion that would expl ain his shortness of breath or chest discomfort. The patient was readmitted, and I did not feel monster t it was appropriate that we repeat his cardiac catheterization, given the short time frame between his last evaluation and the present. The patient's lung process was clearly out of proportion to any cardiac dysfunction that had been id entified, and I felt like there was a primary lung process ongoing. He certainly has dramatic bilat eral pulmonary infiltrates, and we do not believe that significant congestive heart failure was pres ent at the present time. Inflammatory lung disease or pneumonitis of some etiology was suspected. Because the patient did not improve, and his oxygen requirements remained high, the patient underwen t an open lung biopsy yesterday under the care of Dr. Suggs. Today, he continued to be in critical condition and in the ICU, and had very high oxygen requirements. He became progressively more short of breath, and developed sudden severe bradycardia and sinus arrest, with an asystole of approximat mani 15 seconds. He also stopped breathing requiring a code zero to be called, CPR was initiated, wi th cardiac compressions and bag ventilation. He was given epinephrine and bicarbonate, as well as c alcium gluconate, with return of spontaneous circulation, with initially an SVT that became more lik e a sinus tachycardia and good blood pressure. The chest x-ray was unchanged, and there was no evid ence of an acute myocardial infarction, on the basis of the EKG. Ejection fraction by echo was stab le at 45%, and the mechanical valve was opening and closing well. Norepinephrine, which had been st opped during the arrest, was restarted, and I was asked to see the patient in emergency consultation . PHYSICAL EXAMINATION: GENERAL APPEARANCE: At the time my evaluation, the patient is intubated and sedated, is on a ventilator with high FiO2. VITAL SIGNS: His vital signs are currently stable, wit h a blood pressure of 134/57, pulse is 96 and regular, respirations 19, and oxygen saturations of 96 % on 80% FiO2. Norepinephrine drip has been reinstituted. NECK: His neck reveals JVD. LUNGS: Hi s lungs reveal bibasilar rales throughout. CARDIOVASCULAR: His heart reveals a crisp mechanical cl ip of aortic valve closure. I do not appreciate an S3 or S4 gallop. A systolic murmur is evident. ABDOMEN: His abdomen is benign with positive bowel sounds. EXTREMITIES: Femoral, dorsalis pedis, posterior tibial, and radial pulses are 2+, symmetrical, and equal bilaterally, without significant peripheral edema. LABORATORY DATA: A white count of 9.12, hemoglobin and hematocrit 8.1 and 24.2, with a platelet cou nt of 169, RDW is 16.9, with a predominance of neutrophils earlier in the day at 91.0. His most rec ent blood gas reveals a pH of 7.28, pCO2 of 44, PO2 77 at a patient temperature of 37 degrees Celsiu s. Bicarbonate is low at 21, the sodium is 133, potassium 5.9, BUN and creatinine are 50 and 1.6, c hloride 86, carbon dioxide on the venous sample is 5.9, glucose was 572, calcium 10.8, and phosphoru s 7.1. His Coags reveal an INR of 3, PT of 31.9, and aPTT of 52.9, consistent with his anticoagulat ed state. His EKG revealed a wide-complex tachycardia, which may have represented ventricular tachycardia, at the heart rate of 150. It is difficult to determine ST-segment abnormalities, and the patient has a known and pre-existing left bundle branch block versus a left anterior fascicular block. Of course , the differential diagnosis for this particular wide-complex tachycardia is either SVT or pre-exist ing conduction disease versus VT. His current rhythm strip is most consistent with sinus tachycardi a. His echocardiogram reveals an unchanged and relatively well-preserved ejection fraction, which does not explain the patient's clinical picture. IMPRESSION AND PLAN: Acute respiratory failure, as well as serious sinus bradycardia, followed by a systole requiring advanced life support. I think the patient should be maintained on his norepineph rine, and his rhythm carefully monitored. If he develops worsening rhythm, he will need to be treat ed with a temporary pacer wire for recurrent asystolic arrest. We await the results of the lung bio psy, and I do agree with treatment with stress dose steroids, as well as with empiric antibiotics un til the results of the biopsy and further cultures are identified. This does not appear to be a beth nicol cardiac issue at the present time, and is more consistent with severe pulmonary disease, pneumo nitis, hypoxia, and acidosis. /[id number]/MODL
[2017-02-02] MEDS: methylPREDNISolone SOD SUCC 125 MG/2 ML VIAL IVP SCH ×4 (00:18→18:11)
[2017-02-02] MEDS: FUROSEMIDE 100 MG in D5W 100 ML IV SCH (01:00)
[2017-02-02] MEDS: INSULIN REGULAR HUMAN 100 UNIT in NS 100 ML IV SCH ×2 (01:58→16:04)
[2017-02-02 04:43] LABS: BASE EXCESS -2.5 mEq/L (-2.5-2.5); BICARBONATE 23 mEq/L (22-26); MEASURED OXYGEN SATURATION 96 % (92-95); PCO2 44 mmHg (34-38); PO2 89 mmHg (65-75); TCO2 24 mEq/L (23-27)
[2017-02-02 04:45] LABS: % IMMATURE GRANULYOCYTES 0.4 % (0.0-1.1); ABSOLUTE IMMATURE GRANULOCYTES 0.03 10^3/uL (0.00-0.10); ADD DIFF? NO; ADD MORPH? NO; ADD SCAN? NO; ATYPICAL LYMPHOCYTE FLAG 0 (0-99); FRAGMENT RBC FLAG 0 (0-99); HEMATOCRIT 23.9 % (40.0-51.0); HEMOGLOBIN 8.2 g/dL (13.7-17.5); LEFT SHIFT FLG 10 (0-99); LIPEMIA HEMOLYSIS FLAG 90 (0-99); MEAN CELL HEMOGLOBIN 31.4 pg (27.9-34.1); MEAN CELL HEMOGLOBIN CONCENTR. 34.3 g/dL (32.4-36.7); MEAN CELL VOLUME 91.6 fL (81.5-99.8); MEAN PLATELET VOLUME 10.9 fL (8.7-11.7); PLATELET CLUMPS FLAG 0 (0-99); PLATELET COUNT 108 10^3/uL (150-400); RED BLOOD CELL COUNT 2.61 10^6/uL (4.40-6.38); RED CELL DISTRIBUTION WIDTH 16.7 % (11.5-15.2)
[2017-02-02 04:55] LABS: ALBUMIN 2.8 g/dL (3.5-5.0); ALKALINE PHOSPHATASE 356 IU/L (38-126); ANION GAP 12 mEq/L (8-16); CALCIUM 8.4 mg/dL (8.5-10.4); CARBON DIOXIDE 23 mEq/l (22-31); CHLORIDE 90 mEq/L (97-110); CREATININE 2.3 mg/dL (0.7-1.3); GLOMERULAR FILTRATION RATE 28; GLUCOSE 162 mg/dL (70-100); POTASSIUM 4.4 mEq/L (3.5-5.2); SODIUM 125 mEq/L (134-144)
[2017-02-02 04:56] LABS: INR 2.24 (0.83-1.16)
[2017-02-02 05:22] LABS: ALANINE AMINOTRANSFERASE 3130 IU/L (21-72); ASPARTATE AMINOTRANSFERASE 6074 IU/L (17-59)
[2017-02-02] MEDS: CEFEPIME HCL 1 GM in D5W 50 ML IV SCH ×2 (05:24→18:11)
[2017-02-02] MEDS ORDERED: CALCIUM CHLORIDE 1 GM/10 ML INJ ONE (06:19)
[2017-02-02] MEDS ORDERED: ATROPINE SULFATE 1 MG/10 ML SYR ONE (06:20)
[2017-02-02] MEDS ORDERED: FUROSEMIDE 100 MG in NS 100 ML IV SCH (08:30)
--- NOTE | 2017-02-02 09:05 | SOAPPROG ---
SOAP Progress Note Assessment/Plan: Assessment: POD#2 RVATS wedge biopsies; placement left radial gabriel, rt SC QLC, madrigal. Acute respiratory failure with diffuse bilateral interstitial infiltrates - s/p RUL and RLL bxs to inform dx. Prelim cxs NOS. Path pending. Vent and critical care management (incl steroids, Abx, heparin bridge for mech AVR) per ICU. Plan: Cont supportive care as per multidisciplinary team. Keep chest tube to pleurovac. 02/02/17 09:01 Subjective: Sedated on vent Objective: Vital Signs Temp Pulse Resp BP Pulse Ox 36.6 C 85 28 H 113/54 L 96 02/02/17 08:00 02/02/17 08:00 02/02/17 08:00 02/02/17 08:00 02/02/17 08:00 Microbiology 01/31/17 15:51 Mycobacterial Smear (FLAQUITO) - Final Lung - Tissue 01/31/17 15:51 Gram Stain - Final Lung - Tissue Laboratory Results 02/02/17 04:30 02/02/17 04:30 02/01/17 02/02/17 02/03/17 04:59 05:59 05:59 Intake Total Output Total Balance PT 25.0 SEC (12.0-15.0) H 02/02/17 04:30 INR 2.24 (0.83-1.16) H 02/02/17 04:30 Vent FIO2 80%. CXR-> decreased bilat opacities, no PTX CTOP remains low Physical Exam - Physical Exam General Appearance: no apparent distress Respiratory: other (CT to pleurovac, serosang drainage, no tidal, no AL ) Cardiac/Chest: regular rate, rhythm ICD10 Worksheet Patient Problems: Problems Problem Status Onset Chest pain Acute Congestive heart failure Acute Hyponatremia Acute Hypoxemia Acute Hypotension Acute Left arm pain Acute Sepsis affecting skin Acute
[2017-02-02] MEDS: PANTOPRAZOLE SODIUM 40 MG in NS 100 ML IV SCH (09:26)
[2017-02-02] MEDS: CHLORHEXIDINE GLUCONATE 15 ML UDL PO SCH ×2 (09:30→22:00)
[2017-02-02] MEDS: AZITHROMYCIN IV 500 MG in D5W 250 ML IV SCH (10:09)
[2017-02-02] MEDS: fentaNYL/NACL 100 ML IV SCH (11:47)
[2017-02-02] MEDS: FUROSEMIDE 100 MG in NS 100 ML IV SCH ×2 (11:47→18:16)
--- NOTE | 2017-02-02 13:05 | PDINTPN ---
Homogenizer Operator Progress Note Assessment/Plan: Assessment: Status post open lung biopsy. Results pending. On empiric high-dose steroids and antibiotics. Acute respiratory failure. Followed his surgery. Remains on 80-100% FiO2. Chest x-ray does show some improvement today. Hypotension: On norepinephrine, but less. Blood pressure is better. Status post cardiac arrest 02/01, with successful resuscitation. Bilateral pulmonary infiltrates. Etiology is not clear. Interstitial disease clearly present, inflammatory lung disease/pneumonitis of unclear etiology most likely. Doubt pneumonia. Status post open lung biopsy 01/31, results pending. CVPs are elevated and he is volume overloaded so a component of congestive heart failure cannot be excluded. On a Lasix drip but urine output marginal in BUN and creatinine rising. Hypoxemia: Secondary to above. Stable postop. Chest x-ray clearly better, but oxygenation not yet improving. Increasing BUN and creatinine/acute renal failure. Probably has a component of ATN secondary to his arrest. Increased LFTs: Normal on admission. Suspect shock liver. Will follow. History of coronary artery disease and aortic valve replacement. Appears stable. Ejection fraction remains stable at approximately 45%. Diastolic dysfunction present. Valve functioning well. Status post cardiac arrest and successful resuscitation, however I feel that the main issues for this were pulmonary and blood pressure (norepinephrine had run out briefly). However, CVPs are high and a component of congestive heart failure/pulmonary edema may be playing a role presently. Will try to diurese with a Lasix drip if possible. Metabolic: Hyponatremia, sodium 125, slightly better. Likely secondary to lung disease. Hyperglycemia, on insulin drip Anticoagulation: INR remains therapeutic, trending down. Will need IV heparin drip. I may start this later today or in the a.m. based on repeat INR. Plan: Remains critically ill. Continue ventilatory support, pressors as needed. CVP remains high. I will try to diuresis with a Lasix drip if tolerated. Will continue to hold heparin as INR is therapeutic, and may rise with liver abnormalities? Mat restart heparin tomorrow. Cardiology follow-up appreciated. Await biopsy results: Hopefully back Friday/tomorrow. Continue steroids, antibiotics. Follow lab, blood gas, chest x-ray... 50 minutes of critical care time spent directly with the patient. Prognosis remains guarded.. In critical condition but encouraging that chest x-ray showing some initial improvement. Discussed w/ patient's family, RT, hospitalist, nursing, and the ICU multi disciplinary team. Subjective: Sedated, on the ventilator, appears comfortable. Remains on high-flow oxygen: 90-100% FiO2. Objective: Vital Signs Temp Pulse Resp BP Pulse Ox 36.4 C 87 31 H 128/57 H 99 02/02/17 12:00 02/02/17 12:00 02/02/17 12:00 02/02/17 12:00 02/02/17 12:00 Microbiology 01/31/17 15:51 Mycobacterial Smear (FLAQUITO) - Final Lung - Tissue 01/31/17 15:51 Gram Stain - Final Lung - Tissue Laboratory Results 02/02/17 04:30 02/02/17 04:30 02/01/17 02/02/17 02/03/17 04:59 05:59 05:59 Intake Total Output Total Balance PT 25.0 SEC (12.0-15.0) H 02/02/17 04:30 INR 2.24 (0.83-1.16) H 02/02/17 04:30 Laboratory Tests 02/02/17 02/02/17 04:30 04:30 pCO2 44 H pO2 89 H ABG pH 7.33 L ABG O2 Saturation 96 H Calcium 8.4 L D Total Bilirubin 1.0 AST 6074 H ALT 3130 H Albumin 2.8 L CXR: Improved bilateral infiltrates. Lines and tubes in good position. Chest tube on the right, without pneumothorax. Physical Exam - Physical Exam General Appearance: no apparent distress, other (Sedated, on the ventilator,) EENT: PERRL/EOMI, ET tube, other (NG to suction) Neck: normal inspection, other (Positive JVD) Respiratory: decreased breath sounds, rales (Few at bases), No rhonchi, No wheezing Cardiac/Chest: regular rate, rhythm, systolic murmur, other (Valve sounds fine) Abdomen: non-tender, soft, No normal bowel sounds (Decreased, present) Male Genitalia: other (Decker catheter in place: Input greater than output by about 5 L last 3 days. On Lasix drip. CVP 16) Skin: warm/dry, pallor Extremities: pedal edema (Trace +) Neuro/Psych: no motor/sensory deficits (Hard to assess), cognition abnormalities (Hard to assess) ICD10 Worksheet Patient Problems: Problems Problem Status Onset Chest pain Acute Congestive heart failure Acute Hyponatremia Acute Hypotension Acute Hypoxemia Acute Left arm pain Acute Sepsis affecting skin Acute
[2017-02-02] MEDS: NOREPINEPHRINE BITARTRATE 4 MG in NS 500 ML IV SCH (13:47)
--- NOTE | 2017-02-02 14:28 | HOSPPROG ---
Hospitalist Progress Note Assessment/Plan: 71-year-old male presents with acute on chronic hypoxic respiratory failure Plan: elevated LFT's: concerning for shock liver no longer hypotensive follow tachycardia: largely resolved hyperglycemia: known dm w high dose steroids start insulin gtt Acute on chronic hypoxemic resp failure: pulm infiltrates did not resolve when diuresed to euvolemia open lung biopsy yesterday steroids and antibiotics started following biopsy anticipate need for prolonged mechanical ventilation Acute systolic CHF exacerbation: EF 40-45%, hypervolemic on presentation, CXR w / infiltrates (personally interpreted) and BNP 5300 diuresed 3 kg has near normal ef Hypotension. 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 cxr w b/l airspace disease, slightly better to unchanged from yesterday (interp by me) Objective: Vital Signs Temp Pulse Resp BP Pulse Ox 36.4 C 88 18 131/62 H 96 02/02/17 12:00 02/02/17 14:00 02/02/17 14:00 02/02/17 14:00 02/02/17 14:00 Microbiology 01/31/17 15:51 Mycobacterial Smear (FLAQUITO) - Final Lung - Tissue 01/31/17 15:51 Gram Stain - Final Lung - Tissue Laboratory Results 02/02/17 04:30 02/02/17 04:30 02/01/17 02/02/17 02/03/17 04:59 05:59 05:59 Intake Total Output Total Balance PT 25.0 SEC (12.0-15.0) H 02/02/17 04:30 INR 2.24 (0.83-1.16) H 02/02/17 04:30 - Physical Exam Constitutional: other (intubated, sedated) Eyes: PERRL, anicteric sclera Ears, Nose, Mouth, Throat: moist mucous membranes, hearing normal Cardiovascular: regular rate and rhythym, no murmur, rub, or gallop Respiratory: other (rhoncorous anterolat) Gastrointestinal: other (hypoactive bowel sounds), No normoactive bowel sounds, No guarding, No rebound Genitourinary: madrigal in urethra Skin: warm, normal color Musculoskeletal: full muscle strength, no muscle tenderness Neurologic: No AAOx3 ICD10 Worksheet Patient Problems: Problems Problem Status Onset Chest pain Acute Congestive heart failure Acute Hyponatremia Acute Hypoxemia Acute Hypotension Acute Left arm pain Acute Sepsis affecting skin Acute
--- NOTE | 2017-02-02 15:50 | WOCRNPDOC ---
DEYANIRA Advanced Assessment Note - Skin Integrity Problem, Advanced Assess Left Ear Pressure Injury Dressing Type: Open to Air Skin Integrity Problem Comment: Intact at site, no erythema observed. Impression : Resolved at this time. Coccyx Dressing Type: Allevyn Life Dressing Description: Clean/Dry, Intact Exudate Amount: None Exudate Characteristic(s): None Integumentary Issue Intervention: Visualized Under Dressing Delma Wound Tissue: Intact, Shiny, Thin, Dry Delma Wound Swelling: None Site Measurement - Head-to-Toe Length X Width X Depth (cm): 1.5 x 1 x 0 Pressure Injury Present on Admit: Yes (presumed, per report of family member, patient may have had a PI previously) Skin Integrity Problem Comment: Intact, non-blanchable site presents with combination of cheloid and smooth scar tissue; evidence of a resurfaced pressure ulcer of unknown (to this information writer) depth, prior to present assessment. Site is appropriately protected by a sacrum dressing, and nursing has implemented turns and a Progressa Air surface.
[2017-02-02] MEDS: PROPOFOL/EMULSION 100 ML IV SCH (15:56)
[2017-02-02] MEDS: ASPIRIN 81 MG CHEWABLE TAB PO SCH (16:04)
[2017-02-02 18:12] LABS: INR 2.16 (0.83-1.16); PROTIME(PATIENT) 24.3 SEC (12.0-15.0)
[2017-02-02 18:24] LABS: ANION GAP 13 mEq/L (8-16); CALCIUM 8.2 mg/dL (8.5-10.4); CARBON DIOXIDE 23 mEq/l (22-31); CHLORIDE 88 mEq/L (97-110); CREATININE 2.8 mg/dL (0.7-1.3); GLOMERULAR FILTRATION RATE 22; GLUCOSE 151 mg/dL (70-100); POTASSIUM 4.4 mEq/L (3.5-5.2); SODIUM 124 mEq/L (134-144)
--- NOTE | 2017-02-02 23:22 | GPROG ---
[f rep st] PROGRESS NOTE INTERVAL SUMMARY DATE OF SERVICE: 02/02/2017 The patient is a 71-year-old man who presented in December with complaints of shortness of breath an d chest discomfort, as well as a possible infection of his right shoulder and elbow. These were fel t to ultimately be related to pseudogout, but during the process of his evaluation, and because of h is history of coronary artery bypass surgery and aortic valve replacement, with a mechanical aortic valve, the patient underwent assessment under the care of Dr. Jona Pritchard with a cardiac catheteriz ation, which demonstrated his grafts to be patent, with no acute closures, as well as no evidence of a prosthetic valve endocarditis. Ultimately, the patient was discharged from the hospital, and the n was readmitted to [facility] as an emergency via 911 ambulance and evaluated there, and the family w as told that there may have been a heart attack, but he did not receive a repeat catheterization at that time. Shortly after his discharge from [facility], he was taken here to the hospital by collins family, and I was asked to get involved in his care. It seemed to me that his pulmonary infiltrat es were way out of proportion to his level of cardiac dysfunction, given that his ejection fraction was relatively well preserved at 40% to 45%, and his lung edema did not improve, in spite of aggress manisha diuresis resulting in a prerenal azotemia. I ultimately signed off the patient's case, and an o pen lung biopsy was performed under the care of Dr. Suggs on 01/31/2017. On the following morning, he had a sudden asystolic arrest, followed by brief CPR, which responded very quickly to a bolus of epinephrine, and he was placed on a norepinephrine drip, and since that time, has been medically sta ble. A repeat echocardiogram evaluating his ejection fraction and [facility] mechanical aortic valve function was noted to be normal yesterday morning. The lung biopsy results are still pending. I st ill believe that it is unlikely that his cardiac condition explains the severity of his underlying l duran disease, and I think this is probably some form of pneumonitis. RECOMMENDATION: At the present time, is to continue supportive care. I have not recommended repeat invasive evaluation at the present time. I suspect that the patient's recent cardiac arrest was related to hypoxia and high oxygen requiremen ts, as well as possible acidosis, and not related to a primary cardiac issue. /[id number]/MODL
[2017-02-03] MEDS: PROPOFOL/EMULSION 100 ML IV SCH ×4 (00:11→23:27)
[2017-02-03] MEDS: methylPREDNISolone SOD SUCC 125 MG/2 ML VIAL IVP SCH ×5 (00:11→23:27)
[2017-02-03] MEDS: FUROSEMIDE 100 MG in NS 100 ML IV SCH ×2 (00:32→07:31)
[2017-02-03] MEDS: CEFEPIME HCL 1 GM in D5W 50 ML IV SCH ×2 (05:35→17:17)
[2017-02-03 05:39] LABS: BASE EXCESS -3.6 mEq/L (-2.5-2.5); BICARBONATE 22 mEq/L (22-26); MEASURED OXYGEN SATURATION 92 % (92-95); PCO2 45 mmHg (34-38); PO2 74 mmHg (65-75); TCO2 23 mEq/L (23-27)
[2017-02-03 05:40] LABS: ASSIST CONTROL YES; END TIDAL CO2 26; O2 CONCENTRATIION 60 % (0-100); P/F RATIO 123 RATIO; TOTAL RATE 28
[2017-02-03 05:48] LABS: % IMMATURE GRANULYOCYTES 0.8 % (0.0-1.1); ABSOLUTE IMMATURE GRANULOCYTES 0.09 10^3/uL (0.00-0.10); ABSOLUTE NRBC COUNT 0.05 10^3/uL (0-0.01); ADD DIFF? NO; ADD MORPH? NO; ADD SCAN? NO; ATYPICAL LYMPHOCYTE FLAG 0 (0-99); FRAGMENT RBC FLAG 0 (0-99); HEMATOCRIT 24.5 % (40.0-51.0); HEMOGLOBIN 8.4 g/dL (13.7-17.5); LEFT SHIFT FLG 10 (0-99); LIPEMIA HEMOLYSIS FLAG 90 (0-99); MEAN CELL HEMOGLOBIN CONCENTR. 34.3 g/dL (32.4-36.7); MEAN CELL VOLUME 90.4 fL (81.5-99.8); MEAN PLATELET VOLUME 11.9 fL (8.7-11.7); NRBC-AUTO% 0.4 % (0.0-0.2); PLATELET CLUMPS FLAG 20 (0-99); PLATELET COUNT 82 10^3/uL (150-400); RED BLOOD CELL COUNT 2.71 10^6/uL (4.40-6.38); RED CELL DISTRIBUTION WIDTH 16.9 % (11.5-15.2)
[2017-02-03 06:04] LABS: INR 2.07 (0.83-1.16); PROTIME(PATIENT) 23.4 SEC (12.0-15.0)
[2017-02-03 06:09] LABS: ALBUMIN 2.8 g/dL (3.5-5.0); ALKALINE PHOSPHATASE 395 IU/L (38-126); ANION GAP 13 mEq/L (8-16); BILIRUBIN,TOTAL 1.2 mg/dL (0.1-1.4); CARBON DIOXIDE 21 mEq/l (22-31); CHLORIDE 88 mEq/L (97-110); CREATININE 3.1 mg/dL (0.7-1.3); GLOMERULAR FILTRATION RATE 20; GLUCOSE 145 mg/dL (70-100); POTASSIUM 4.4 mEq/L (3.5-5.2); SODIUM 122 mEq/L (134-144)
[2017-02-03 07:39] LABS: ALANINE AMINOTRANSFERASE 2324 IU/L (21-72); ASPARTATE AMINOTRANSFERASE 2222 IU/L (17-59)
[2017-02-03] MEDS: PANTOPRAZOLE SODIUM 40 MG in NS 100 ML IV SCH (08:04)
[2017-02-03] MEDS: CHLORHEXIDINE GLUCONATE 15 ML UDL PO SCH ×2 (08:06→20:28)
[2017-02-03] MEDS: ASPIRIN 81 MG CHEWABLE TAB PO SCH (08:06)
--- NOTE | 2017-02-03 08:48 | PDINTPN ---
Lpn Rn Progress Note Assessment/Plan: Assessment/354Plan: * Status post open lung biopsy. Results pending, likely back today. Continue on empiric high-dose steroids and antibiotics. * Acute respiratory failure. Followed his surgery. Remains on 80-100% FiO2. Chest x-ray does show some improvement today. -will start O2 wean * Hypotension: On norepinephrine, improved -wean as renteta * Status post cardiac arrest 02/01, with successful resuscitation. * Bilateral pulmonary infiltrates. Etiology is not clear. Interstitial disease clearly present, inflammatory lung disease/pneumonitis of unclear etiology most likely. Doubt pneumonia. Status post open lung biopsy 01/31, results pending. CVPs are elevated and he is volume overloaded so a component of congestive heart failure cannot be excluded. On a Lasix drip but urine output marginal in BUN and creatinine rising. * Increasing BUN and creatinine/acute renal failure. Probably has a component of ATN secondary to his arrest. * Increased LFTs: Normal on admission. Suspect shock liver. Will follow. * History of coronary artery disease and aortic valve replacement. Appears stable. Ejection fraction remains stable at approximately 45%. Diastolic dysfunction present. Valve functioning well. Status post cardiac arrest and successful resuscitation, however I feel that the main issues for this were pulmonary and blood pressure (norepinephrine had run out briefly). However, CVPs are high and a component of congestive heart failure/pulmonary edema may be playing a role presently. Will try to diurese with a Lasix drip if possible. * Metabolic: Hyponatremia, sodium 125, slightly better. Likely secondary to lung disease. * Hyperglycemia, on insulin drip * Anticoagulation: INR remains therapeutic, trending down. Will need IV heparin drip. I may start this later today or in the a.m. based on repeat INR. 35 min of critical care time spent with patient. Subjective: Sedated Objective: Vital Signs Temp Pulse Resp BP Pulse Ox 36.2 C 84 18 102/49 L 96 02/03/17 07:00 02/03/17 08:21 02/03/17 08:21 02/03/17 08:21 02/03/17 08:21 Microbiology 01/31/17 15:51 Gram Stain - Final Lung - Tissue Laboratory Results 02/03/17 05:25 02/03/17 05:25 02/02/17 02/03/17 02/04/17 05:59 05:59 05:59 Intake Total 2701.9 Output Total 1616 Balance 1085.9 PT 23.4 SEC (12.0-15.0) H 02/03/17 05:25 INR 2.07 (0.83-1.16) H 02/03/17 05:25 Laboratory Results 02/03/17 05:25 02/03/17 05:25 02/03/17 02/03/17 02/03/17 05:25 05:25 05:25 PT 23.4 SEC H SEC (12.0 - 15.0) INR 2.07 H (0.83 - 1.16) Puncture Site ARTERIAL LINE Patient Temperature 37.2 DEGREES DEGREES pCO2 45 mmHg H mmHg (34 - 38) pO2 74 mmHg mmHg (65 - 75) Total CO2 23 mEq/L mEq/L (23 - 27) ABG pH 7.31 L (7.35 - 7.45) ABG PO2/FiO2 Ratio 123 RATIO RATIO ABG O2 Saturation 92 % % (92 - 95) ABG Base Excess -3.6 mEq/L L mEq/L (-2.5 - 2.5) O2 Concentration % 60 % % Respiration Rate 28 Set Respiration Rate 28 Assist Control YES Tidal Volume 550 End Tidal CO2 26 PEEP 10 Calcium 8.0 mg/dL L mg/dL (8.5 - 10.4) Total Bilirubin 1.2 mg/dL mg/dL (0.1 - 1.4) AST 2222 IU/L H IU/L (17 - 59) ALT 2324 IU/L H IU/L (21 - 72) Alkaline Phosphatase 395 IU/L H IU/L (38 - 126) Total Protein 6.0 g/dL L g/dL (6.3 - 8.2) Albumin 2.8 g/dL L g/dL (3.5 - 5.0) 01/07/17 04:50 PT 16.2 SEC H D SEC (12.0 - 15.0) INR 1.30 H (0.83 - 1.16) Puncture Site Patient Temperature pCO2 pO2 Total CO2 ABG pH ABG PO2/FiO2 Ratio ABG O2 Saturation ABG Base Excess O2 Concentration % Respiration Rate Set Respiration Rate Assist Control Tidal Volume End Tidal CO2 PEEP Calcium Total Bilirubin AST ALT Alkaline Phosphatase Total Protein Albumin CXR-ETT okay. No PTX - Time Spent With Patient Time Spent With Patient: 35 Physical Exam - Physical Exam General Appearance: other (sedated), No alert EENT: PERRL/EOMI, ET tube Neck: non-tender, full range of motion Respiratory: crackles, No respiratory distress, No wheezing Cardiac/Chest: normal peripheral pulses, regular rate, rhythm, systolic murmur Peripheral Pulses: 2+: carotid (R), carotid (L), femoral (R), femoral (L), dorsalis-pedis (R), dorsalis-pedis (L) Abdomen: normal bowel sounds, non-tender, soft Male Genitalia: deferred Rectal: deferred Skin: normal color, warm/dry Extremities: normal range of motion, non-tender, normal inspection, normal capillary refill Neuro/Psych: no motor/sensory deficits, alert, normal mood/affect, oriented x 3 ICD10 Worksheet Patient Problems: Problems Problem Status Onset Chest pain Acute Congestive heart failure Acute Hyponatremia Acute Hypoxemia Acute Hypotension Acute Left arm pain Acute Sepsis affecting skin Acute
--- NOTE | 2017-02-03 09:02 | SOAPPROG ---
SOAP Progress Note Assessment/Plan: Assessment: POD#3 RVATS wedge biopsies; placement left radial gabriel, rt SC QLC, madrigal. Acute respiratory failure with diffuse bilateral interstitial infiltrates - s/p RUL and RLL bxs to inform dx. Prelim cxs NGTD. Path pending. Vent and critical care management (incl steroids, Abx, heparin bridge for mech AVR) per ICU. Plan: Cont supportive care as per multidisciplinary team. Keep chest tube to pleurovac. 02/03/17 09:00 Subjective: sedated on vent Objective: Vital Signs Temp Pulse Resp BP Pulse Ox 36.2 C 84 18 102/49 L 96 02/03/17 07:00 02/03/17 08:21 02/03/17 08:21 02/03/17 08:21 02/03/17 08:21 Microbiology 01/31/17 15:51 Gram Stain - Final Lung - Tissue Laboratory Results 02/03/17 05:25 02/03/17 05:25 02/02/17 02/03/17 02/04/17 05:59 05:59 05:59 Intake Total 2701.9 Output Total 1616 Balance 1085.9 PT 23.4 SEC (12.0-15.0) H 02/03/17 05:25 INR 2.07 (0.83-1.16) H 02/03/17 05:25 CXR-> decr bilat opacities/improved aeration, no PTX. Vent FIO2 down to 60%. CTOP < 40ml/shift. Physical Exam - Physical Exam General Appearance: no apparent distress Respiratory: other (chest tube to pleurovac, serosang drainage, no air leak) Cardiac/Chest: regular rate, rhythm ICD10 Worksheet Patient Problems: Problems Problem Status Onset Chest pain Acute Congestive heart failure Acute Hyponatremia Acute Hypoxemia Acute Hypotension Acute Left arm pain Acute Sepsis affecting skin Acute
--- NOTE | 2017-02-03 09:43 | GCON ---
[f rep st] CONSULTATION NEPHROLOGY CONSULTATION DATE OF CONSULTATION: 02/03/2017 REASON FOR CONSULTATION: Acute kidney injury, hyponatremia. HISTORY OF PRESENT ILLNESS: This is a very ill 71-year-old male with a past medical history signifi cant for several issues including coronary artery disease, aortic valve replacement, hypertension, a trial fibrillation, diabetes, and calcium pyrophosphate deposition disease who now presents status p ost cardiac arrest and with acute kidney injury. History is obtained from the medical staff and the medical record. The patient's recent history began earlier this year with an admission to [facility] for concerns relating to chest discomfort and shortness of breath. At that time, the patient under went a full cardiac evaluation, which included a cardiac catheterization. The patient's grafts were noted to be patent, and his ejection fraction did demonstrate a fairly well preserved systolic func tion of 45%. Since that time, the patient has undergone significant diuresis without changes to pro nounce pulmonary infiltrates. The patient was discharged and was readmitted at [facility]. Details of that admission are unclear, but it was potentially for cardiopulmonary reasons once again . Finally, the patient presented here once again on the . During this admission, it was decided to further evaluate for a primary pulmonary process. The patient underwent an open lung biopsy. T he patient did have an asystolic arrest, which quickly responded to bolus epinephrine. The patient is now intubated, sedated, and is on low-dose norepinephrine. Since the time of his arrest, he has demonstrated some shock liver although his transaminases are already improving. It appears that his baseline creatinine is around 1.0. Following his arrest, it has gradually climbed to today's level of 3.1. Fortunately, he is nonoliguric, and his electrolytes look excellent. He is currently intu bated, sedated, and on 60% FiO2. His systolic blood pressure is 102 on the norepinephrine. His uri ne output has been ranging between 1200 and 1500 mL per day. As related to the above issues, we are asked by the hospitalist service to assist the patient's renal diagnosis and management. PAST MEDICAL HISTORY: 1. Coronary artery disease. 2. Aortic valve replacement. 3. Atrial fibrillation. 4. Type 2 diabetes. 5. Systemic hypertension. 6. Calcium pyrophosphate deposition disease. PAST SURGICAL HISTORY: 1. Coronary bypass graft. 2. Aortic valve surgery 2003. 3. Coronary stent placed 2014. CURRENT MEDICATIONS: 1. Azithromycin 500 mg IV daily. 2. Cefepime 1 g b.i.d. 3. Peridex mouthwash b.i.d. 4. Dextrose drip. 5. Insulin drip. 6. Fentanyl as needed. 7. Heparin IV drip. 8. Solu-Medrol 125 mg IV q.6 hours. 9. Metoprolol 12.5 mg b.i.d. 10. Norepinephrine drip. 11. Propofol drip. FAMILY HISTORY: Noncontributory. SOCIAL HISTORY: He is a former smoker. He does not have alcohol use. He is . He has a sup portive daughter at bedside. REVIEW OF SYSTEMS: Unobtainable. PHYSICAL EXAMINATION: VITAL SIGNS: Temperature afebrile, pulse 84, blood pressure 102/49, FiO2 60% . PEEP 10. GENERAL: The patient is intubated and sedated. EYES: Sclerae clear. Pupils are reac tive. OROPHARYNX: Endotracheal tube in place. NECK: No lymphadenopathy or thyromegaly. LUNGS: Coarse breath sounds. Chest tubes are noted. CARDIOVASCULAR: Regular rate and rhythm without gall ops or rubs. ABDOMEN: Soft. There are bowel sounds. : Decker catheter in place draining clear, yellow urine. RECTAL: Deferred. EXTREMITIES: There is trace hip and ankle edema. INTEGUMENT: Generally clear. NEURO: The patient is sedated. LABORATORY STUDIES: Sodium 122, potassium 4.4, chloride 88, bicarb 21, BUN 71, creatinine 3.1, AST 2222 which is improved, ALT 2324, albumin 2.8. Urinalysis negative. VITALY negative. Rheumatoid fact or positive. IMPRESSION AND PLAN: 1. Acute kidney injury. The patient has nonoliguric acute kidney injury. His rise in creatinine d oes seem to correlate with a hypotensive episode. He is nonoliguric. With his creatinine 2.8 yeste rday and 3.1 today, he does appear to be plateauing. I expect improvement. Given his urinalysis wa s normal, I do not believe there are immunologic factors at play. We will continue to monitor. 2. Hyponatremia. I have reviewed his medications with Pharmacy. They will replace with normal radha ine where possible. We will check urine studies, but I suspect him to have isosthenuria in the face of acute kidney injury. I do not see that he has been on vasopressin. He is starting on tube feed s today. These will likely be hypertonic. He will not be given significant free water flushes. Wi th this, I expect gradual improvement of his hyponatremia. We will continue to monitor. 3. Hemodynamics: I did discuss with the critical care service. We will try to wean his PEEP. I w ill stop his Lasix drip. He may benefit from some additional fluids. His sedation may also be play ing a role. 4. Nutrition: As noted above, tube feeds will be initiated. 5. Pulmonary process: I think this is the overall connolly to his current medical issues. His biopsy i s pending. He is on empiric Solu-Medrol. Thank you for allowing us to participate in this gentleman's care. We will continue following close ly with you. /[id number]/MODL
[2017-02-03] MEDS: AZITHROMYCIN IV 500 MG in D5W 250 ML IV SCH (10:15)
[2017-02-03 11:32] LABS: ABSOLUTE NRBC COUNT 0.07 10^3/uL (0-0.01); ADD DIFF? NO; ADD MORPH? NO; ADD SCAN? NO; ATYPICAL LYMPHOCYTE FLAG 0 (0-99); FRAGMENT RBC FLAG 0 (0-99); HEMATOCRIT 23.3 % (40.0-51.0); LEFT SHIFT FLG 20 (0-99); LIPEMIA HEMOLYSIS FLAG 90 (0-99); MEAN CELL HEMOGLOBIN 31.5 pg (27.9-34.1); MEAN CELL HEMOGLOBIN CONCENTR. 34.3 g/dL (32.4-36.7); MEAN CELL VOLUME 91.7 fL (81.5-99.8); MEAN PLATELET VOLUME 11.6 fL (8.7-11.7); NRBC-AUTO% 0.7 % (0.0-0.2); PLATELET CLUMPS FLAG 10 (0-99); PLATELET COUNT 71 10^3/uL (150-400); RED BLOOD CELL COUNT 2.54 10^6/uL (4.40-6.38); RED CELL DISTRIBUTION WIDTH 16.8 % (11.5-15.2)
[2017-02-03 11:40] LABS: INR 2.13 (0.83-1.16)
[2017-02-03 11:41] LABS: APTT 33.7 SEC (23.0-38.0)
--- NOTE | 2017-02-03 11:49 | PDCARPN ---
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 His grafts were open and there was no evidence of endocarditis. He was recently admitted to [facility] and then was bought to [facility] with more SOB and CP. He was found to have pulmonary infiltrates which were felt to be out of proportion to his cardiac disease. A lung biopsy was done by Dr. Suggs and the following day he had a asystolic arrest (levo had run out at that time) with brief CPR. A echo on 02/01 showed a stable EF without significant change. Plan: 1. Pulmonary infiltrates- biopsy results pending. Likely pulonary etiology. The severity of his pulmonary issues is out of proportion to his cardiac disease. Likely pneumonitis on steroids and abx. 2. AVR, mechanical- Coumadin on hold. On Heparin drip. 3. s/p CABG- patent grafts by angiogram earlier this year. 4. hypotension- on levo 5. ARF secondary to asystolic arrest 02/03/17 12:53 Subjective: Pt intubated and sedated Objective: Vital Signs (8 Hrs) Temp Pulse Resp BP Pulse Ox 02/03/17 11:15 85 24 H 92/47 L 88 L 02/03/17 11:00 85 24 H 86/48 L 90 L 02/03/17 10:00 86 24 H 98/50 L 90 L 02/03/17 09:00 84 24 H 113/58 L 96 02/03/17 08:21 84 18 102/49 L 96 02/03/17 08:00 84 28 H 115/55 L 96 02/03/17 07:00 36.2 C 83 28 H 115/51 L 90 L 02/03/17 06:00 84 28 H 129/55 H 95 02/03/17 03:56 37.1 C 82 28 H 116/53 L 95 Intake/Output (24 Hrs) 02/02/17 02/03/17 02/04/17 05:59 05:59 05:59 Intake Total 2701.9 Output Total 1616 Balance 1085.9 Intake: Oral (ml) IV Intake (ml) 893 IV Infused (ml) 1808.9 Azithromycin IV 500 mg In D5w 250 ml @ 255 mls/hr IV DAILY [facility] Rx#: [id number] Cefepime HCl 1 gm In D5w 50 ml @ 100 mls/hr IV Q12H [facility] Rx#:[id number] D5w 1,000 ml @ 25 mls/hr 573 IV CONT [facility]CO Rx#: [id number] Furosemide 100 mg In D5w 336 100 ml @ As Directed IV CONT [facility]CO Rx#:[id number] Heparin/Dextrose 500 ml @ Per Protocol IV CONT MARCO Rx#:[id number] Insulin Regular Human 100 114.7 unit In Ns 100 ml @ As Directed IV CONT MARCO Rx#: [id number] Norepinephrine Bitartrate 408 4 mg In D5w 500 ml @ Titrate IV CONT [facility]CO Rx#: [id number] Pantoprazole Sodium 40 mg In Ns 100 ml @ 200 mls/ hr IV DAILY [facility]CO Rx#: [id number] Propofol/Emulsion 100 ml 241 @ Per Protocol IV CONT MARCO Rx#:[id number] fentaNYL/NACL 100 ml @ 136.2 Per Protocol IV CONT MARCO Rx#:[id number] Output: Urine (ml) 1500 Catheter 1500 Chest Tube Drainage (ml) 36 Right 36 NG Drainage (ml) 80 Large Bore (>12 Brazilian) 80 Non-weighted Left Naris Stomach Other: Weight 83.2 kg Output Comment Catheter Number of Stools Catheter Result Diagrams: 02/03/17 11:15 02/03/17 05:25 Telemetry: NSR with occasional PVC's - Physical Exam Constitutional: other (sedated) Cardiovascular: regular rate and rhythm, other (click consistent with AVR) Respiratory: other (positive rhonichi) Skin: other (diffuse mild edema) ICD10 Worksheet Patient Problems: Problems Problem Status Onset Chest pain Acute Congestive heart failure Acute Hyponatremia Acute Hypoxemia Acute Hypotension Acute Left arm pain Acute Sepsis affecting skin Acute
[2017-02-03] MEDS: NOREPINEPHRINE BITARTRATE 4 MG in NS 500 ML IV SCH (13:16)
--- NOTE | 2017-02-03 15:52 | HOSPPROG ---
Hospitalist Progress Note Assessment/Plan: 71-year-old male presents with acute on chronic hypoxic respiratory failure Plan: elevated LFT's: concerning for shock liver no longer hypotensive improved today ERIN: suspect ATN from hypotension hypotension: repeat ekg and trop cvp OK bp actually went down when pressors decreased so it isnt that PEEP being weaned doesnt appear to be septic tachycardia: largely resolved hyperglycemia: known dm w high dose steroids start insulin gtt Acute on chronic hypoxemic resp failure: pulm infiltrates did not resolve when diuresed to euvolemia s/p open lung biopsy steroids and antibiotics started following biopsy anticipate need for prolonged mechanical ventilation Acute systolic CHF exacerbation: EF 40-45%, hypervolemic on presentation, CXR w / infiltrates (personally interpreted) and BNP 5300 diuresed 3 kg has near normal ef CAD: Chronic, bypass x 2 with vein graft occlusion (per cath 2011), NSTEMI in Dec 2016 with cath showed patent WOLFE to 1st diagonal, ALETHA to LAD holding ASA/plavix for procedure cont statin and bblocker (lowered dosage) Hypervolemic hyponatremia: woqrse today, likely 2/2 IVF in OR diuresis recommenced follow Mechanical AVR: INR therapeutic, Chronic HTN: now on pressors Uncontrolled DM: insulin gtt Subjective: cxr w increased to unchanged airspace disease (interp by me). case d/w dr elmore Objective: Vital Signs Temp Pulse Resp BP Pulse Ox 37.4 C 88 24 H 116/56 L 95 02/03/17 12:00 02/03/17 15:00 02/03/17 15:00 02/03/17 15:00 02/03/17 15:00 Microbiology 01/31/17 15:51 Gram Stain - Final Lung - Tissue Laboratory Results 02/03/17 11:15 02/03/17 05:25 02/02/17 02/03/17 02/04/17 05:59 05:59 05:59 Intake Total 2701.9 50 Output Total 1616 400 Balance 1085.9 -350 PT 24.0 SEC (12.0-15.0) H 02/03/17 11:15 INR 2.13 (0.83-1.16) H 02/03/17 11:15 - Physical Exam Constitutional: not in pain, other (intubated, sedated) Eyes: PERRL, anicteric sclera Ears, Nose, Mouth, Throat: moist mucous membranes, hearing normal Cardiovascular: regular rate and rhythym, no murmur, rub, or gallop Respiratory: other (rhoncorous breath sounds b/l) Gastrointestinal: normoactive bowel sounds, soft, non-tender abdomen Genitourinary: madrigal in urethra Skin: warm, normal color Musculoskeletal: full muscle strength, no muscle tenderness Neurologic: No AAOx3, No sensation intact bilaterally Psychiatric: No interacting appropriately ICD10 Worksheet Patient Problems: Problems Problem Status Onset Chest pain Acute Congestive heart failure Acute Hyponatremia Acute Hypoxemia Acute Hypotension Acute Left arm pain Acute Sepsis affecting skin Acute
--- NOTE | 2017-02-03 16:38 | CPEKG ---
Heart Rate: 88 RR Interval: 682 P-R Interval: 188 QRSD Interval: 146 QT Interval: 384 QTC Interval: 465 P [place]: 38 QRS [place]: -53 T Wave [place]: 163 EKG Severity - ABNORMAL ECG - EKG Impression: SINUS RHYTHM EKG Impression: ATRIAL PREMATURE COMPLEX EKG Impression: PROBABLE LEFT ATRIAL ABNORMALITY EKG Impression: LEFT BUNDLE BRANCH BLOCK EKG Impression: LBBB IS PRESENT ONCE AGAIN (ABSENT ON 29-JAN-2017) AND SINUS RHYTHM HAS EKG Impression: REPLACED SVT Electronically Signed By: Bryant Garcia 04-Feb-2017 09:20:38
[2017-02-03 16:41] LABS: ALBUMIN 2.9 g/dL (3.5-5.0); ALKALINE PHOSPHATASE 413 IU/L (38-126); ANION GAP 13 mEq/L (8-16); BILIRUBIN,TOTAL 1.3 mg/dL (0.1-1.4); CALCIUM 7.7 mg/dL (8.5-10.4); CARBON DIOXIDE 22 mEq/l (22-31); CHLORIDE 88 mEq/L (97-110); CREATININE 3.3 mg/dL (0.7-1.3); GLOMERULAR FILTRATION RATE 19; GLUCOSE 191 mg/dL (70-100); POTASSIUM 4.4 mEq/L (3.5-5.2); SODIUM 123 mEq/L (134-144); TOTAL PROTEIN 5.8 g/dL (6.3-8.2)
[2017-02-03 16:53] LABS: ALANINE AMINOTRANSFERASE 1886 IU/L (21-72); ASPARTATE AMINOTRANSFERASE 1426 IU/L (17-59)
[2017-02-03] MEDS: fentaNYL/NACL 100 ML IV SCH (19:34)
[2017-02-03] MEDS: INSULIN REGULAR HUMAN 100 UNIT in NS 100 ML IV SCH (19:34)
[2017-02-04 02:20] LABS: ANION GAP 12 mEq/L (8-16); CALCIUM 7.6 mg/dL (8.5-10.4); CARBON DIOXIDE 23 mEq/l (22-31); CHLORIDE 92 mEq/L (97-110); CREATININE 3.4 mg/dL (0.7-1.3); GLOMERULAR FILTRATION RATE 18; GLUCOSE 160 mg/dL (70-100); POTASSIUM 4.4 mEq/L (3.5-5.2); SODIUM 127 mEq/L (134-144)
[2017-02-04] MEDS: HEPARIN 25,000 UNIT in NS 500 ML IV SCH ×2 (03:29→13:26)
[2017-02-04] MEDS: NOREPINEPHRINE BITARTRATE 4 MG in NS 500 ML IV SCH ×2 (03:29→21:08)
[2017-02-04 04:30] LABS: BASE EXCESS -5.2 mEq/L (-2.5-2.5); BICARBONATE 21 mEq/L (22-26); MEASURED OXYGEN SATURATION 90 % (92-95); PCO2 49 mmHg (34-38); PO2 72 mmHg (65-75); TCO2 23 mEq/L (23-27)
[2017-02-04 04:31] LABS: O2 CONCENTRATIION 70 % (0-100); P/F RATIO 103 RATIO; PATIENT RATE 22; PIP 29; PRESSURE SUPPORT 7; SIMV YES
[2017-02-04] MEDS: methylPREDNISolone SOD SUCC 125 MG/2 ML VIAL IVP SCH ×3 (05:01→17:45)
[2017-02-04 05:18] LABS: ABSOLUTE NRBC COUNT 0.17 10^3/uL (0-0.01); ADD DIFF? YES; ADD MORPH? YES; ADD SCAN? NO; ATYPICAL LYMPHOCYTE FLAG 0 (0-99); FRAGMENT RBC FLAG 20 (0-99); HEMATOCRIT 24.2 % (40.0-51.0); LEFT SHIFT FLG 40 (0-99); LIPEMIA HEMOLYSIS FLAG 80 (0-99); MEAN CELL HEMOGLOBIN 30.7 pg (27.9-34.1); MEAN CELL HEMOGLOBIN CONCENTR. 33.1 g/dL (32.4-36.7); MEAN CELL VOLUME 92.7 fL (81.5-99.8); MEAN PLATELET VOLUME 11.8 fL (8.7-11.7); PLATELET CLUMPS FLAG 10 (0-99); PLATELET COUNT 118 10^3/uL (150-400); RED BLOOD CELL COUNT 2.61 10^6/uL (4.40-6.38); RED CELL DISTRIBUTION WIDTH 16.8 % (11.5-15.2)
[2017-02-04 05:25] LABS: NRBC-AUTO% 1.2 % (0.0-0.2)
[2017-02-04] MEDS: CEFEPIME HCL 1 GM in D5W 50 ML IV SCH ×2 (05:37→17:45)
[2017-02-04 06:01] LABS: ALBUMIN 2.8 g/dL (3.5-5.0); ALKALINE PHOSPHATASE 405 IU/L (38-126); ANION GAP 15 mEq/L (8-16); BILIRUBIN,TOTAL 1.1 mg/dL (0.1-1.4); CALCIUM 7.8 mg/dL (8.5-10.4); CARBON DIOXIDE 22 mEq/l (22-31); CHLORIDE 92 mEq/L (97-110); CREATININE 3.5 mg/dL (0.7-1.3); GLOMERULAR FILTRATION RATE 17; GLUCOSE 168 mg/dL (70-100); POTASSIUM 4.6 mEq/L (3.5-5.2); SODIUM 129 mEq/L (134-144); TOTAL PROTEIN 5.7 g/dL (6.3-8.2)
[2017-02-04 06:10] LABS: ALANINE AMINOTRANSFERASE 1556 IU/L (21-72); ASPARTATE AMINOTRANSFERASE 779 IU/L (17-59)
[2017-02-04 06:42] LABS: PLATELET ESTIMATE DECREASED (ADEQ); POLYCHROMASIA 1+
[2017-02-04] MEDS: CHLORHEXIDINE GLUCONATE 15 ML UDL PO SCH ×2 (08:14→21:25)
[2017-02-04] MEDS: PANTOPRAZOLE SODIUM 40 MG in NS 100 ML IV SCH (08:14)
[2017-02-04] MEDS: AZITHROMYCIN IV 500 MG in NS 250 ML IV SCH (08:14)
--- NOTE | 2017-02-04 08:14 | SOAPPROG ---
SOAP Progress Note Assessment/Plan: Assessment: POD#4 RVATS wedge biopsies; placement left radial gabriel, rt SC QLC, madrigal. Acute respiratory failure with diffuse bilateral interstitial infiltrates - s/p RUL and RLL bxs to inform dx. Prelim cxs NGTD. Path still pending. Vent and critical care management (incl steroids, Abx, heparin bridge for mech AVR) per ICU. Air leak controlled by suction. Plan: Cont supportive care as per multidisciplinary team. Keep chest tube to pleurovac on cont suction. 02/04/17 08:11 Subjective: Sedated on vent. Opens eyes to name. Objective: Vital Signs Temp Pulse Resp BP Pulse Ox 37.2 C 80 24 H 112/53 L 95 02/04/17 04:00 02/04/17 06:00 02/04/17 06:00 02/04/17 06:00 02/04/17 06:00 Microbiology 01/31/17 15:51 Gram Stain - Final Lung - Tissue Laboratory Results 02/04/17 05:00 02/04/17 05:00 02/03/17 02/04/17 02/05/17 05:59 05:59 05:59 Intake Total 2701.9 3303.7 Output Total 1616 1460 Balance 1085.9 1843.7 PT 24.0 SEC (12.0-15.0) H 02/03/17 11:15 INR 2.13 (0.83-1.16) H 02/03/17 11:15 New air leak overnoc. Vent FIO2 70%. PEEP5, PSV7. Output remains 30-40 ml/shift. CXR-> essentially unchanged. No overt PTX. Physical Exam - Physical Exam General Appearance: no apparent distress Respiratory: other (rt pleural tube to pleurovac, audible air leak around tube. 2 chamber air leak with nl tidal. Rt chest no palp crepitus.) Cardiac/Chest: regular rate, rhythm ICD10 Worksheet Patient Problems: Problems Problem Status Onset Chest pain Acute Congestive heart failure Acute Hyponatremia Acute Hypoxemia Acute Hypotension Acute Left arm pain Acute Sepsis affecting skin Acute
[2017-02-04] MEDS: ASPIRIN 81 MG CHEWABLE TAB PO SCH (08:21)
--- NOTE | 2017-02-04 08:45 | ECHO ---
[id number] + + [address] : : [place] [address] : : [phone] + Adult Echocardiographic Report + ---+ :Name: AAMIR MONCADA Tasneem Date: 02/03/2017 04:11 PM : : Hospital Admission Number: [id number] Location: 251: :: 1945 Gender: Male Height: 66 in : :Age: 71 yrs Race: HL,PTD,OTH Weight: 183 lb : :Reason For Study: CAD with low normal EF with persistant : :hypotension BSA: 1.9 meters2 : + ---+ Doppler Measurements \T\ Calculations Ao mean P.0 mmHg TR max sandro: 327.1 cm/sec Ao V2 mean: 123.7 cm/sec TR max P.8 mmHg Ao V2 VTI: 23.9 cm RAP systole: 10.0 mmHg RVSP(TR): 52.8 mmHg Left Ventricle Ejection Fraction = 40-45%. LV mid/basal inferolateral is akinetic and the basal/mid inferoseptal wall is hypokinetic. Septal motion is consistent with conduction abnormality. Tricuspid Valve Right ventricular systolic pressure is 53mmHg. There is mild tricuspid regurgitation. Conclusion Limited 2-D echo. No decrease in EF from 2 days ago. LV mid/basal inferolateral is akinetic and the basal/mid inferoseptal wall is hypokinetic. Ejection Fraction = 40-45%. Septal motion is consistent with conduction abnormality. Final Reading Physician: Elias Vasquez signed on 02/04/2017 08:44 AM Ordering Physician: Adam Rivas Performed By: Melissa Dominguez RDCS
[2017-02-04] MEDS: PROPOFOL/EMULSION 100 ML IV SCH ×3 (10:00→17:45)
[2017-02-04 10:53] LABS: ANION GAP 13 mEq/L (8-16); CALCIUM 7.2 mg/dL (8.5-10.4); CARBON DIOXIDE 22 mEq/l (22-31); CHLORIDE 92 mEq/L (97-110); CREATININE 3.5 mg/dL (0.7-1.3); GLOMERULAR FILTRATION RATE 17; GLUCOSE 214 mg/dL (70-100); POTASSIUM 4.4 mEq/L (3.5-5.2); SODIUM 127 mEq/L (134-144)
--- NOTE | 2017-02-04 11:08 | PDINTPN ---
Orthotist Or Prosthetist Progress Note Assessment/Plan: Assessment/354Plan: * Status post open lung biopsy. Path shows evidence of organizing pneumonia with some honeycombing-likely organizing phase of Diffuse Alveolar Damage -will increase steroids to very high dose * Acute respiratory failure. Did not tolerate reduction of PEEP--will continue with PEEP of 10 for now and wean fio2 as renetta * Hypotension: On norepinephrine, improved -wean as renetta * Status post cardiac arrest 02/01, with successful resuscitation. * Bilateral pulmonary infiltrates. Etiology is not clear. Interstitial disease clearly present, inflammatory lung disease/pneumonitis of unclear etiology most likely. Doubt pneumonia. Status post open lung biopsy 01/31, results pending. CVPs are elevated and he is volume overloaded so a component of congestive heart failure cannot be excluded. On a Lasix drip but urine output marginal in BUN and creatinine rising. * Increasing BUN and creatinine/acute renal failure. -will discuss with nephrology. consider CRRT * Increased LFTs: Normal on admission. Suspect shock liver. Will follow. * History of coronary artery disease and aortic valve replacement. Appears stable. Ejection fraction remains stable at approximately 45%. Diastolic dysfunction present. Valve functioning well. Status post cardiac arrest and successful resuscitation, however I feel that the main issues for this were pulmonary and blood pressure (norepinephrine had run out briefly). -consider swan-slim catheter to sort out fluid status * Metabolic: Hyponatremia, sodium 125, slightly better. Likely secondary to lung disease. * Hyperglycemia, on insulin drip * Anticoagulation: INR remains therapeutic, trending down. Will need IV heparin drip. I may start this later today or in the a.m. based on repeat INR. 40 min of critical care time spent with patient. Case discussed with RT and nursing Subjective: Sedated Objective: Vital Signs Temp Pulse Resp BP Pulse Ox 36.7 C 92 24 H 100/51 L 98 02/04/17 08:00 02/04/17 10:00 02/04/17 10:00 02/04/17 10:00 02/04/17 10:00 Microbiology 01/31/17 15:51 Gram Stain - Final Lung - Tissue Laboratory Results 02/04/17 05:00 02/03/17 02/04/17 02/05/17 05:59 05:59 05:59 Intake Total 2701.9 3303.7 Output Total 1616 1460 Balance 1085.9 1843.7 PT 24.0 SEC (12.0-15.0) H 02/03/17 11:15 INR 2.13 (0.83-1.16) H 02/03/17 11:15 Laboratory Results 02/04/17 05:00 02/04/17 10:05 02/04/17 02/04/17 02/04/17 05:00 04:25 00:40 Patient Temperature 37.0 DEGREES DEGREES pCO2 49 mmHg H mmHg (34 - 38) pO2 72 mmHg mmHg (65 - 75) Total CO2 23 mEq/L mEq/L (23 - 27) ABG pH 7.26 L (7.35 - 7.45) ABG PO2/FiO2 Ratio 103 RATIO RATIO ABG O2 Saturation 90 % L % (92 - 95) ABG Base Excess -5.2 mEq/L L mEq/L (-2.5 - 2.5) O2 Concentration % 70 % % Actual Respiration Rate 22 Set Respiration Rate 22 SIMV YES Tidal Volume 550 PEEP 5 Peak Inspir Pressure 29 Pressure Support 7 Calcium 7.6 mg/dL L mg/dL (8.5 - 10.4) Total Bilirubin 1.1 mg/dL mg/dL (0.1 - 1.4) AST 779 IU/L H IU/L (17 - 59) ALT 1556 IU/L H IU/L (21 - 72) Alkaline Phosphatase 405 IU/L H IU/L (38 - 126) Troponin I 5.530 ng/mL H ng/mL (0 - 0.034) Total Protein 5.7 g/dL L g/dL (6.3 - 8.2) Albumin 2.8 g/dL L g/dL (3.5 - 5.0) - Time Spent With Patient Time Spent With Patient: 40 Physical Exam - Physical Exam General Appearance: no apparent distress, other (sedated), No alert EENT: PERRL/EOMI, normal ENT inspection, ET tube Neck: non-tender, full range of motion Respiratory: crackles, No respiratory distress, No wheezing Cardiac/Chest: normal peripheral pulses, regular rate, rhythm, systolic murmur Peripheral Pulses: 2+: carotid (R), carotid (L), femoral (R), femoral (L), dorsalis-pedis (R), dorsalis-pedis (L) Abdomen: normal bowel sounds, non-tender, soft Male Genitalia: deferred Rectal: deferred Skin: normal color, warm/dry Lymphatic: no adenopathy Neuro/Psych: No alert (sedated) ICD10 Worksheet Patient Problems: Problems Problem Status Onset Chest pain Acute Congestive heart failure Acute Hyponatremia Acute Hypoxemia Acute Hypotension Acute Left arm pain Acute Sepsis affecting skin Acute
[2017-02-04] MEDS: fentaNYL/NACL 100 ML IV SCH (13:25)
[2017-02-04] MEDS: INSULIN REGULAR HUMAN 100 UNIT in NS 100 ML IV SCH (13:26)
[2017-02-04] MEDS ORDERED: NS BOLUS 500 ML (Wide open) IV ONE (15:00)
--- NOTE | 2017-02-04 15:46 | CPEKG ---
Heart Rate: 106 RR Interval: 566 P-R Interval: 156 QRSD Interval: 166 QT Interval: 376 QTC Interval: 500 P [place]: 0 QRS [place]: -76 T Wave [place]: 92 EKG Severity - ABNORMAL ECG - EKG Impression: SINUS TACHYCARDIA WITH IRREGULAR RATE 84-124 EKG Impression: RBBB AND LAFB EKG Impression: PRIOR ECG WITH LBBB PATTERN Electronically Signed By: Bryant Garcia 04-Feb-2017 16:50:18
--- NOTE | 2017-02-04 16:19 | SOAPPROG ---
SOAP Progress Note Assessment/Plan: Assessment: 1. arf: ischemic atn from cardiac arrest. Remains non-oliguric off lasix, bun/ creat stable today. Appears to be on verge of recovering renal fxn, will hold off on hd today. Given hypotension would not be able to achieve sig uf even if hd/crrt started. 2. Hypotension: remains on pressors, cvp not low. On empiric abx. 3. Resp failure: bx results noted, on steroids. Cvp running 10-15 today. If no renal recovery in next day or two could certainly initiate hd, though uf would be limited by hemodynamics. 4. HypoNa: improved from earlier in admit. Expect this to trend up as long as large volume hypotonic iv's avoided. Plan: 02/04/17 16:15 Subjective: Remains intubated, on pressors. Cvp running 10-15. Current FiO2 80%. Objective: Vital Signs Temp Pulse Resp BP Pulse Ox 36.7 C 120 H 24 H 104/52 L 92 02/04/17 11:48 02/04/17 15:00 02/04/17 15:00 02/04/17 15:00 02/04/17 15:00 Microbiology 01/31/17 15:51 Mycobacterial Smear (FLAQUITO) - Final Lung - Tissue 01/31/17 15:51 Gram Stain - Final Lung - Tissue Laboratory Results 02/04/17 05:00 02/04/17 10:05 02/03/17 02/04/17 02/05/17 05:59 05:59 05:59 Intake Total 2701.9 3303.7 Output Total 1616 1460 Balance 1085.9 1843.7 PT 24.0 SEC (12.0-15.0) H 02/03/17 11:15 INR 2.13 (0.83-1.16) H 02/03/17 11:15 Physical Exam - Physical Exam General Appearance: other (intubated, sedated) Respiratory: other (coarse ant) Cardiac/Chest: tachycardia Extremities: other (+dependent/LE edema) ICD10 Worksheet Patient Problems: Problems Problem Status Onset Chest pain Acute Congestive heart failure Acute Hyponatremia Acute Hypoxemia Acute Hypotension Acute Left arm pain Acute Sepsis affecting skin Acute
--- NOTE | 2017-02-04 16:57 | HOSPPROG ---
Hospitalist Progress Note Assessment/Plan: 71 yo M with acute hypoxic respiratory failure with bilateral interstitial infiltrates s/p open biopsy # acute hypoxic respiratory failure: patient has been intubated, not tolerating weaning PEEP, but have been able to wean FiO2 to 70%. On personal review of cxr noted to have bilateral interstitial infiltrates, now s/p open bx with path c/w organizing pneumonia with diffuse alveloar damage. Continued on steroids at increased dose. CT in place. cxs showing ngtd but continued on cefepime given difficulty excluding infection # acute systolic heart failure: with EF of 40-45% and weight up 6-7kg approximately since admission, has been on HD and lasix gtt but holding off on both currently. # shock: continued on NE, multifactorial with likely infection as well as chf contributing, sp cardiac arrest on 02/01 # leonardo: 2/2 ischemic ATN, as above, currently monitoring off of HD and appears to be regaining kidney function # transaminitis: likely 2/2 shock liver, has been slowly improving, continue to monitor # hyponatremia: hypervolemic hyponatremia, monitoring # mechanical AVR: continue AC on heparin gtt # DM: continue prn ssi # CAD: s/p CABG x 2 # FEN: TF at goal, repleting lytes, monitoring na # FC # IP status, remains critically ill Patient new to my care. Old records reviewed and summarized as above. Care plan reviewed with blueprint blocker as above. Further hx obtained from patients family present at bedside. Subjective: no significant overnight events, PEEP needed to be turned up again overnight Objective: Vital Signs Temp Pulse Resp BP Pulse Ox 36.7 C 120 H 24 H 104/52 L 92 02/04/17 11:48 02/04/17 15:00 02/04/17 15:00 02/04/17 15:00 02/04/17 15:00 Microbiology 01/31/17 15:51 Mycobacterial Smear ([place]QUITO) - Final Lung - Tissue 01/31/17 15:51 Gram Stain - Final Lung - Tissue Laboratory Results 02/04/17 05:00 02/04/17 10:05 02/03/17 02/04/17 02/05/17 05:59 05:59 05:59 Intake Total 2701.9 3303.7 Output Total 1616 1460 Balance 1085.9 1843.7 PT 24.0 SEC (12.0-15.0) H 02/03/17 11:15 INR 2.13 (0.83-1.16) H 02/03/17 11:15 intubated sedated nad anicteric ett in place rrr tachy coarse intubated bs soft nt nd trace ble edema warm dry well perfused sedated, moves spontaneously ICD10 Worksheet Patient Problems: Problems Problem Status Onset Left arm pain Acute Sepsis affecting skin Acute Hypotension Acute Chest pain Acute Congestive heart failure Acute Hypoxemia Acute Hyponatremia Acute
[2017-02-04 17:31] LABS: CALCIUM 7.1 mg/dL (8.5-10.4); CHLORIDE 91 mEq/L (97-110); CREATININE 3.8 mg/dL (0.7-1.3); GLOMERULAR FILTRATION RATE 16; GLUCOSE 237 mg/dL (70-100); POTASSIUM 4.6 mEq/L (3.5-5.2); SODIUM 128 mEq/L (134-144)
[2017-02-04 17:36] LABS: ANION GAP 16 mEq/L (8-16); CARBON DIOXIDE 21 mEq/l (22-31)
[2017-02-04] MEDS ORDERED: VASOPRESSIN/DEXTROSE 250 ML IV SCH (20:41)
[2017-02-04 21:15] LABS: MIXED VENOUS O2 SATURATION 79 % (65-75)
[2017-02-05] MEDS: methylPREDNISolone SOD SUCC 125 MG/2 ML VIAL IVP SCH ×2 (00:25→06:26)
[2017-02-05] MEDS: NOREPINEPHRINE BITARTRATE 4 MG in NS 500 ML IV SCH ×4 (00:25→07:10)
[2017-02-05] MEDS: PROPOFOL/EMULSION 100 ML IV SCH ×2 (02:20→09:35)
[2017-02-05] MEDS: D5W 1,000 ML IV SCH (02:27)
[2017-02-05] MEDS: INSULIN REGULAR HUMAN 100 UNIT in NS 100 ML IV SCH ×2 (02:27→09:35)
[2017-02-05 03:38] LABS: ABSOLUTE NRBC COUNT 1.53 10^3/uL (0-0.01); ADD DIFF? YES; ADD MORPH? YES; ADD SCAN? NO; ATYPICAL LYMPHOCYTE FLAG 0 (0-99); FRAGMENT RBC FLAG 20 (0-99); HEMATOCRIT 27.3 % (40.0-51.0); HEMOGLOBIN 8.8 g/dL (13.7-17.5); LEFT SHIFT FLG 50 (0-99); LIPEMIA HEMOLYSIS FLAG 80 (0-99); MEAN CELL HEMOGLOBIN 31.9 pg (27.9-34.1); MEAN CELL HEMOGLOBIN CONCENTR. 32.2 g/dL (32.4-36.7); MEAN CELL VOLUME 98.9 fL (81.5-99.8); MEAN PLATELET VOLUME 11.4 fL (8.7-11.7); PLATELET CLUMPS FLAG 10 (0-99); PLATELET COUNT 174 10^3/uL (150-400); RED BLOOD CELL COUNT 2.76 10^6/uL (4.40-6.38); RED CELL DISTRIBUTION WIDTH 17.2 % (11.5-15.2)
[2017-02-05 03:43] LABS: NRBC-AUTO% 6.5 % (0.0-0.2)
[2017-02-05 03:56] LABS: ALBUMIN 2.8 g/dL (3.5-5.0); ALKALINE PHOSPHATASE 408 IU/L (38-126); ANION GAP 13 mEq/L (8-16); ASPARTATE AMINOTRANSFERASE 354 IU/L (17-59); BILIRUBIN,TOTAL 1.2 mg/dL (0.1-1.4); BILIRUBIN-CONJUGATED 1.2 mg/dL (0.0-0.5); CALCIUM 6.6 mg/dL (8.5-10.4); CARBON DIOXIDE 18 mEq/l (22-31); CHLORIDE 94 mEq/L (97-110); CREATININE 4.2 mg/dL (0.7-1.3); GLOMERULAR FILTRATION RATE 14; GLUCOSE 210 mg/dL (70-100); POTASSIUM 4.8 mEq/L (3.5-5.2); SODIUM 125 mEq/L (134-144); TOTAL PROTEIN 6.1 g/dL (6.3-8.2)
[2017-02-05 04:17] LABS: PLATELET ESTIMATE ADEQUATE (ADEQ); POLYCHROMASIA 1+
[2017-02-05 04:29] LABS: ALANINE AMINOTRANSFERASE 1104 IU/L (21-72)
[2017-02-05] MEDS: CEFEPIME HCL 1 GM in D5W 50 ML IV SCH (06:26)
[2017-02-05] MEDS ORDERED: NARCOTIC DRIP BAG-TOTAL ALL TYPES IV PRN (06:34)
--- NOTE | 2017-02-05 07:47 | SOAPPROG ---
SOAP Progress Note Assessment/Plan: Assessment: 1. ERIN. ATN due to hypotension after cardiac arrest. Was making excellent urine but now oliguric after additional hypotension over night. At this point does not appear recovery is imminent. Pt anasarcic with massive fluid requirements. Ask pharm to concentrate meds as able. Will ask GS to place HD cath and initiate CRRT. Will start with noncitrated solution d/t shock liver. 2. Respiratory failure. Appears to have ILD on bx. Cannot rule out a volume component. Will not be able to achieve net UF due to hypotension. 3. Shock. Probably septic. Continue broad spectrum abx. Plan: 02/05/17 07:46 02/05/17 07:48 02/05/17 07:49 Subjective: Had worsening hypotension over night requiring increase in vasopressors. Urine output has trailed off. Objective: Vital Signs Temp Pulse Resp BP Pulse Ox 37.2 C 102 H 24 H 115/43 L 93 02/04/17 16:00 02/05/17 06:00 02/05/17 06:00 02/05/17 06:00 02/05/17 06:00 Microbiology 01/31/17 15:51 Mycobacterial Smear ([place]QUITO) - Final Lung - Tissue 01/31/17 15:51 Gram Stain - Final Lung - Tissue Laboratory Results 02/05/17 03:34 02/05/17 03:34 02/04/17 02/05/17 02/06/17 05:59 05:59 05:59 Intake Total 3303.7 6248 Output Total 1460 500 Balance 1843.7 5748 PT 24.0 SEC (12.0-15.0) H 02/03/17 11:15 INR 2.13 (0.83-1.16) H 02/03/17 11:15 Intubated, sedated male RRR, mechanical S2, no murmurs/gallops/rubs Diffuse rhonchi Abdom soft, nt 3+ UE/LE pitting edema L hand dusky and cool, R hand/feet warm and pink. Per RN has dopplerable pulse On levophed, vasopressin ICD10 Worksheet Patient Problems: Problems Problem Status Onset Left arm pain Acute Sepsis affecting skin Acute Hypotension Acute Chest pain Acute Congestive heart failure Acute Hypoxemia Acute Hyponatremia Acute
[2017-02-05] MEDS ORDERED: NOREPINEPHRINE BITARTRATE 16 MG in NS 250 ML IV SCH (08:00)
--- NOTE | 2017-02-05 08:57 | PDINTPN ---
[facility] Progress Note Assessment/Plan: Assessment/Plan: * Status post open lung biopsy. Path shows evidence of organizing pneumonia with some honeycombing-likely organizing phase of Diffuse Alveolar Damage -will increase steroids to very high dose * Acute respiratory failure-ARDS physiology.Now on high peep and FIO2 -hold weaning * Hypotension: On norepinephrine and vasopressin. -wean as renetta * Status post cardiac arrest 02/01, with successful resuscitation. * Bilateral pulmonary infiltrates-Path shows diffuse DAD -continue very high dose solumedrol * Increasing BUN and creatinine/acute renal failure. -CRRT to start today * Increased LFTs: Normal on admission. Suspect shock liver. Will follow. * History of coronary artery disease and aortic valve replacement. Appears stable. Ejection fraction remains stable at approximately 45%. Diastolic dysfunction present. Valve functioning well. Status post cardiac arrest and successful resuscitation, however I feel that the main issues for this were pulmonary and blood pressure (norepinephrine had run out briefly). -consider swan-slim catheter to sort out fluid status * Hyperglycemia, on insulin drip * Anticoagulation: On heparin 35 min of critical care time spent with patient. Case discussed with RT and nursing Prognosis guarded Subjective: sedated Objective: Vital Signs Temp Pulse Resp BP Pulse Ox 37.2 C 102 H 24 H 115/43 L 93 02/04/17 16:00 02/05/17 06:00 02/05/17 06:00 02/05/17 06:00 02/05/17 06:00 Microbiology 01/31/17 15:51 Mycobacterial Smear ([place]O) - Final Lung - Tissue 01/31/17 15:51 Gram Stain - Final Lung - Tissue Laboratory Results 02/05/17 03:34 02/05/17 03:34 02/04/17 02/05/17 02/06/17 05:59 05:59 05:59 Intake Total 3303.7 6248 Output Total 1460 500 Balance 1843.7 5748 PT 24.0 SEC (12.0-15.0) H 02/03/17 11:15 INR 2.13 (0.83-1.16) H 02/03/17 11:15 - Time Spent With Patient Time Spent With Patient: 35 Physical Exam - Physical Exam General Appearance: other (sedated), No alert EENT: PERRL/EOMI, normal ENT inspection, pharynx normal, ET tube Neck: non-tender, full range of motion, supple, normal inspection Respiratory: crackles, No respiratory distress, No stridor, No wheezing Cardiac/Chest: normal peripheral pulses, regular rate, rhythm, systolic murmur Peripheral Pulses: 2+: carotid (R), carotid (L), femoral (R), femoral (L), dorsalis-pedis (R), dorsalis-pedis (L) Abdomen: normal bowel sounds, non-tender, soft Male Genitalia: deferred Rectal: deferred Skin: normal color, warm/dry Extremities: normal range of motion, non-tender, normal inspection, normal capillary refill Neuro/Psych: No alert ICD10 Worksheet Patient Problems: Problems Problem Status Onset Chest pain Acute Congestive heart failure Acute Hyponatremia Acute Hypoxemia Acute Hypotension Acute Left arm pain Acute Sepsis affecting skin Acute
[2017-02-05] MEDS ORDERED: POTASSIUM Cl (KCl) 100 ML IV PRN (09:00)
[2017-02-05] MEDS ORDERED: NS 1,000 ML MISC SCH (09:00)
[2017-02-05] MEDS ORDERED: BGK 4/2.5 PRISMASATE 5,000 ML DIAL SCH ×2 (09:00)
[2017-02-05] MEDS ORDERED: SODIUM PHOS 20 MM in D5W 250 ML IV PRN (09:00)
[2017-02-05] MEDS ORDERED: PRE-DILUTION FILTER SET 100 ****SEND #2 INITIALLY MISC PRN (09:00)
[2017-02-05] MEDS ORDERED: MAGNESIUM SULF 2 GM/WATER 50 ML IV PRN (09:00)
[2017-02-05] MEDS ORDERED: ACCESSORY DRAIN 1 EA BAG***SEND #2 INITIALLY MISC PRN (09:00)
[2017-02-05 09:25] VITALS: O2SAT 91
[2017-02-05] MEDS: PANTOPRAZOLE SODIUM 40 MG in NS 100 ML IV SCH (09:34)
[2017-02-05] MEDS: AZITHROMYCIN IV 500 MG in NS 250 ML IV SCH (09:34)
[2017-02-05] MEDS: ASPIRIN 81 MG CHEWABLE TAB PO SCH (09:35)
[2017-02-05] MEDS: CHLORHEXIDINE GLUCONATE 15 ML UDL PO SCH (09:35)
[2017-02-05 09:44] VITALS: TEMP 97.5
[2017-02-05 09:50] LABS: ANION GAP 16 mEq/L (8-16); CALCIUM 6.3 mg/dL (8.5-10.4); CARBON DIOXIDE 18 mEq/l (22-31); CHLORIDE 93 mEq/L (97-110); CREATININE 4.3 mg/dL (0.7-1.3); GLOMERULAR FILTRATION RATE 14; GLUCOSE 189 mg/dL (70-100); POTASSIUM 4.9 mEq/L (3.5-5.2); SODIUM 127 mEq/L (134-144)
[2017-02-05 10:41] VITALS: BP 111/54; PULSE 111; RESP 22
[2017-02-05] MEDS ORDERED: LIDOCAINE 1% 30 ML SDV MISC ONE (11:31)
[2017-02-05] MEDS ORDERED: LIDOCAINE 2% JELLY 5 ML TUBE TP ONE (11:31)
[2017-02-05] MEDS ORDERED: LIDOCAINE 1% 30 ML SDV ONE (11:42)
--- NOTE | 2017-02-05 12:10 | POSTOPPROG ---
Post Op Note Date of Operation: 02/05/17 Surgeon: Eleno Melton (, FACS) Anesthesia: Local (Specify) Pre-op Diagnosis: renal failure Post-op Diagnosis: same Indication: venous access for dialysis Procedure: placement of right femoral dialysis catheter Inf/Abcess present in the surg proc area at time of surgery?: No EBL: Minimal
[2017-02-05 12:21] LABS: IONIZED CALCIUM 0.99 MMOL/L (1.12-1.30)
[2017-02-05 12:22] LABS: HEMATOCRIT 26.4 % (40.0-51.0); HEMOGLOBIN 8.3 g/dL (13.7-17.5); MEAN CELL HEMOGLOBIN 31.9 pg (27.9-34.1); MEAN CELL HEMOGLOBIN CONCENTR. 31.4 g/dL (32.4-36.7); MEAN CELL VOLUME 101.5 fL (81.5-99.8); RED BLOOD CELL COUNT 2.6 10^6/uL (4.40-6.38); RED CELL DISTRIBUTION WIDTH 17.4 % (11.5-15.2)
[2017-02-05 12:32] LABS: INR 1.9 (0.83-1.16); PROTIME(PATIENT) 21.9 SEC (12.0-15.0)
[2017-02-05 12:34] LABS: APTT 72.3 SEC (23.0-38.0)
[2017-02-05 13:08] LABS: HEMATOCRIT 25.6 % (40.0-51.0)
[2017-02-05 13:12] LABS: ALBUMIN 2.5 g/dL (3.5-5.0); ANION GAP 14 mEq/L (8-16); CALCIUM 6.1 mg/dL (8.5-10.4); CARBON DIOXIDE 18 mEq/l (22-31); CHLORIDE 95 mEq/L (97-110); CREATININE 4.5 mg/dL (0.7-1.3); GLOMERULAR FILTRATION RATE 13; GLUCOSE 188 mg/dL (70-100); MAGNESIUM 2.3 mg/dL (1.6-2.3); POTASSIUM 5.2 mEq/L (3.5-5.2); SODIUM 127 mEq/L (134-144)
[2017-02-05 13:20] LABS: INR 1.89 (0.83-1.16); PROTIME(PATIENT) 21.8 SEC (12.0-15.0)
[2017-02-05] MEDS ORDERED: EPINEPHrine 1 MG/10 ML SYR IVP ONE (13:28)
[2017-02-05] MEDS ORDERED: SODIUM BICARBONATE 150 MEQ in D5W 1,000 ML IV SCH (13:30)
[2017-02-05 13:39] LABS: ALANINE AMINOTRANSFERASE 743 IU/L (21-72); ALBUMIN 2.3 g/dL (3.5-5.0); ALKALINE PHOSPHATASE 347 IU/L (38-126); ANION GAP 13 mEq/L (8-16); ASPARTATE AMINOTRANSFERASE 259 IU/L (17-59); CALCIUM 6.1 mg/dL (8.5-10.4); CARBON DIOXIDE 18 mEq/l (22-31); CHLORIDE 96 mEq/L (97-110); CREATININE 4.2 mg/dL (0.7-1.3); GLOMERULAR FILTRATION RATE 14; GLUCOSE 172 mg/dL (70-100); POTASSIUM 6.2 mEq/L (3.5-5.2); SODIUM 127 mEq/L (134-144)
--- NOTE | 2017-02-05 15:21 | ECHO ---
[id number] [id number] + + [phone] : : [place] [address] : : [phone] + + Adult Echocardiographic Report + ---+ :Name: AAMIR MONCADA Tasneem Date: 02/05/2017 01:36 PM : : Hospital Admission Number: [id number] Location: 251: :: 1945 Gender: Male : :Age: 71 yrs Race: HL,PTD,OTH : :History: CODE BLUE : + ---+ MMode/2D Measurements \T\ Calculations LVLd ap4: 8.5 cm SV(MOD-sp4): 34.0 ml EDV(MOD-sp4): 104.0 ml LVLs ap4: 8.1 cm ESV(MOD-sp4): 70.0 ml EF(MOD-sp4): 32.7 % Normal Measurement Values: + + :LVIDd (3.5-5.7cm) IVSd (0.6-1.1cm) LVPWd (0.6-1.1cm) Aortic Root (2.0-3.7cm)Left Atrium (1.5-4.0cm): :LV Vol(d) (76-115ml) LV Vol(s) (29-48ml) Ejec Fraction (50-65%)PV Ayden (0.6- 1.2m/s) TV Ayden (0.4-1.0m/s) : :MV E Ayden (0.8-1.0m/s)MV A Ayden (0.3-1.0m/s)LVOT Ayden (0.7-1.2m/s) Asc Ao Ayden ( 0.9-1.8m/s) : + + Doppler Measurements \T\ Calculations TR max ayden: 272.8 cm/sec TR max P.8 mmHg RAP systole: 5.0 mmHg RVSP(TR): 34.8 mmHg Conclusion This is a limited echo to evaluate LV function during a CORE. The patient during exam,. LV systollic function is preserved . Final Reading Physician: Elias Vasquez signed on 02/05/2017 03:20 PM Ordering Physician: Javier Richards
[2017-02-05] MEDS ORDERED: CALCIUM CHLORIDE 1 GM/10 ML INJ ONE (15:36)
[2017-02-05] MEDS ORDERED: DOPamine/DEXTROSE/250 ML BAG IV ONE (15:36)
[2017-02-05] MEDS ORDERED: SODIUM BICARBONATE 10 MEQ/10 ML SYR IVP ONE (15:36)
[2017-02-05] MEDS ORDERED: ATROPINE SULFATE 1 MG/10 ML SYR ONE (15:36)
[2017-02-05 15:47] LABS: CALCULATED OXYGEN SATURATION 78 % (92-95)
--- NOTE | 2017-02-05 16:10 | GPN ---
[f rep st] PROCEDURE NOTE CODE NOTE: Code was called after patient was found to be asystolic. Code proceeded following ACLS guidelines. Pulse and blood pressure were obtained several times throughout the code; however, thes e were fleeting. He was subsequently pronounced . Family was at the bedside. /[id number]/MODL
--- NOTE | 2017-02-05 17:06 | PDDCSUM ---
Discharge Summary Discharge Summary: Dates of service 01/28-02/05/17 summary--patient suffered asystolic cardiac arrest, underwent multiple rounds of cpr, epi gtt, had ROSC on several occasions however despite that did not ever become stable again and ultimately after approximately 40 minutes of CPR, resucitation was discontinued and patient with family at bedside. Consultations: cardiology, renal, pulmonary, gen surg Procedures: endotracheal intubation, open lung biopsy, HD cath placement, A line placement, echo Hospital course by problem: 71 yo M with acute hypoxic respiratory failure with bilateral interstitial infiltrates s/p open biopsy # acute hypoxic respiratory failure: organizing PNA with diffuse alveolar damage noted on biopsy, treated with high dose steroids but o2 sats remained low , cardiac arrest as above, PEEP increased//o2 sats increased but CPR ultimately not successful # asystolic arrest: as above, developed suddently, likley multifactorial with resp failure unstable, shock for days, labs revewed and other than acidosis no real abnormalities. # acute systolic heart failure: with EF of 40-45% and weight up 6-7kg approximately since admission, has been on HD and lasix gtt but holding off on both currently. # shock: continued on NE, multifactorial with likely infection as well as chf contributing, sp cardiac arrest on 02/01 # leonardo: 2/2 ischemic ATN, as above, currently monitoring off of HD and appears to be regaining kidney function # transaminitis: likely 2/2 shock liver, has been slowly improving, continue to monitor # hyponatremia: hypervolemic hyponatremia, monitoring # mechanical AVR: continue AC on heparin gtt # DM: continue prn ssi # CAD: s/p CABG x 2 # FEN: TF at goal, repleting lytes, monitoring na # FC Patient s/p approximately 40 minutes of CPR >55 minute of critical care time spent in care of this patient more than half in bedside care of patient during CPR, coordinating with other phsyciains and staff
== END 2017-02-05 13:42 | disposition expired | DRG 166 ==
LOC: F2N 23:46
PROVIDERS: ADMIT Family Medicine; ATTEND Internal Medicine
PROC: 5A1955Z Respiratory Ventilation, Greater than 96 Consecutive Hours (ICD-10-PCS; 2017-01-31)
PROC: 30233L1 Transfusion of Nonautologous Fresh Plasma into Peripheral Vein, Percutaneous Approach (ICD-10-PCS; 2017-01-31)
PROC: 0BBC4ZX Excision of Right Upper Lung Lobe, Percutaneous Endoscopic Approach, Diagnostic (ICD-10-PCS; principal; 2017-01-31 13:45)
PROC: 0BBF4ZX Excision of Right Lower Lung Lobe, Percutaneous Endoscopic Approach, Diagnostic (ICD-10-PCS; principal; 2017-01-31 13:45)
PROC: 0W9930Z Drainage of Right Pleural Cavity with Drainage Device, Percutaneous Approach (ICD-10-PCS; principal; 2017-01-31 13:45)
PROC: 5A12012 Performance of Cardiac Output, Single, Manual (ICD-10-PCS; 2017-02-01)
PROC: 0DH67UZ Insertion of Feeding Device into Stomach, Via Natural or Artificial Opening (ICD-10-PCS; 2017-02-01)
PROC: 3E0G76Z Introduction of Nutritional Substance into Upper GI, Via Natural or Artificial Opening (ICD-10-PCS; 2017-02-04)
PROC: 06HC33Z Insertion of Infusion Device into Right Common Iliac Vein, Percutaneous Approach (ICD-10-PCS; 2017-02-05)
PROC: 5A12012 Performance of Cardiac Output, Single, Manual (ICD-10-PCS; 2017-02-05)
DX: J96.21 Acute and chronic respiratory failure with hypoxia (principal); J84.89 Other specified interstitial pulmonary diseases; I50.21 Acute systolic (congestive) heart failure; I21.3 ST elevation (STEMI) myocardial infarction of unspecified site; K72.00 Acute and subacute hepatic failure without coma; N17.0 Acute kidney failure with tubular necrosis; E87.1 Hypo-osmolality and hyponatremia; I25.810 Atherosclerosis of coronary artery bypass graft(s) without angina pectoris; I48.91 Unspecified atrial fibrillation; I95.89 Other hypotension; R57.0 Cardiogenic shock; I11.0 Hypertensive heart disease with heart failure; I46.9 Cardiac arrest, cause unspecified; E11.65 Type 2 diabetes mellitus with hyperglycemia; Z95.2 Presence of prosthetic heart valve; Z95.5 Presence of coronary angioplasty implant and graft; Z95.1 Presence of aortocoronary bypass graft; E87.5 Hyperkalemia; R79.89 Other specified abnormal findings of blood chemistry; M10.9 Gout, unspecified; Z79.01 Long term (current) use of anticoagulants; Z79.4 Long term (current) use of insulin; Z79.84 Long term (current) use of oral hypoglycemic drugs; Z79.82 Long term (current) use of aspirin
CPT/HCPCS: 82164-90; 82947-QW; 85520-90; 86141-90; 97116-GP; 97161-GP; 97165-GO; 97530-GO; 97530-GP; 97535-GO; G8978-GO-CK; G8978-GP-CJ; G8979-GO-CI; G8979-GP-CI; J0171; J0282; J0456; J0461; J0692; J1265; J1644; J1815; J2001; J2370; J2704; J3010; P9017; P9041